=== PATIENT | male | born 1950 | race Caucasian/White ===

== ENCOUNTER 2017-12-15 13:55 | Inpatient (IN) | payer BC, MEDICARE ==
[2017-12-15] MEDS ORDERED: SODIUM CHLORIDE 0.9% 500 ML 500 ML IV STA (14:24)
--- NOTE | 2017-12-15 14:27 | ED ---
General Adult HPI - General Chief complaint: Abdominal Pain Stated complaint: Bowel Obstruction Time Seen by Provider: 12/15/17 14:00 Source: patient, RN notes reviewed Mode of arrival: ambulatory Limitations: no limitations - History of Present Illness Initial comments: This is a 67-year-old male presents emergency department with past medical history significant for prostate cancer high blood pressure and colon cancer. Patient states she's had a colectomy in the past. Patient went to his doctor today because he was not able to have a bowel movement for the last 2 days and not passing any gas the last 2 days. Patient states he has some lower abdominal cramping more so on the right than the left. Patient went to see his primary medical care doctor today and the doctor sent him in for an x-ray which was suggestive of small bowel obstruction so the patient was sent to the emergency department. Patient denies any vomiting but has been nauseous. Patient denies any chest pain difficulty breathing shortness of breath. Patient denies any recent fever chills or cough per patient denies any dysuria hematuria urinary frequency. Patient denies any urinary retention. - Related Data Home Medications Medication Instructions Recorded Confirmed Bisoprolol [Zebeta] 5 mg PO DAILY 12/15/17 12/15/17 Cholecalciferol [Vitamin D3] 1,000 unit PO DAILY 12/15/17 12/15/17 Ciprofloxacin HCl [Cipro] 250 mg PO Q12HR 12/15/17 12/15/17 Finasteride [Proscar] 5 mg PO DAILY 12/15/17 12/15/17 Krill Oil 500 mg PO DAILY 12/15/17 12/15/17 Multivitamins, Thera [Multivitamin 1 tab PO DAILY 12/15/17 12/15/17 (formulary)] Ubidecarenone [Co Q-10] 100 mg PO DAILY 12/15/17 12/15/17 metroNIDAZOLE [Flagyl] 500 mg PO Q8H 12/15/17 12/15/17 Allergies Allergy/AdvReac Type Severity Reaction Status Date / Time No Known Allergies Allergy Verified 12/15/17 15:19 Review of Systems ROS Statement: Those systems with pertinent positive or pertinent negative responses have been documented in the HPI. ROS Other: All systems not noted in ROS Statement are negative. Past Medical History Past Medical History: Cancer, Hypertension, Prostate Disorder Additional Past Medical History / Comment(s): colon cancer History of Any Multi-Drug Resistant Organisms: None Reported Past Surgical History: Bowel Resection, Hernia Repair Past Psychological History: No Psychological Hx Reported Smoking Status: Never smoker Past Alcohol Use History: Occasional Past Drug Use History: None Reported General Exam - General Exam Comments Initial Comments: GENERAL: Patient is well-developed and well-nourished. Patient is nontoxic and well- hydrated and is in mild distress. ENT: Neck is soft and supple. No significant lymphadenopathy is noted. Oropharynx is clear. Moist mucous membranes. Neck has full range of motion without eliciting any pain. EYES: The sclera were anicteric and conjunctiva were pink and moist. Extraocular movements were intact and pupils were equal round and reactive to light. Eyelids were unremarkable. PULMONARY: Unlabored respirations. Good breath sounds bilaterally. No audible rales rhonchi or wheezing was noted. CARDIOVASCULAR: There is a regular rate and rhythm without any murmurs gallops or rubs. ABDOMEN: Soft with some mild tenderness in the right lower quadrant with diminished bowel sounds. No palpable organomegaly was noted. There is no palpable pulsatile mass. SKIN: Skin is clear with no lesions or rashes and otherwise unremarkable. NEUROLOGIC: Patient is alert and oriented x3. Cranial nerves II through XII are grossly intact. Motor and sensory are also intact. Normal speech, volume and content. Symmetrical smile. MUSCULOSKELETAL: Normal extremities with adequate strength and full range of motion. LYMPHATICS: No significant lymphadenopathy is noted PSYCHIATRIC: Normal psychiatric evaluation. Limitations: no limitations Course Vital Signs 12/15/17 14:06 Temperature 98.4 F Pulse Rate 87 Respiratory 18 Rate Blood Pressure 169/86 O2 Sat by Pulse 97 Oximetry Medical Decision Making - Medical Decision Making Computed tomography scan shows small bowel obstruction. I spoke with Dr. Mendez she agreed to admit the patient admitted the patient family requested Dr. robles - Lab Data Result diagrams: 12/15/17 14:45 12/15/17 14:45 Lab Results 12/15/17 12/15/17 Range/Units 14:45 14:45 WBC 13.7 H (3.8-10.6) k/uL RBC 5.44 (4.30-5.90) m/uL Hgb 16.3 (13.0-17.5) gm/dL Hct 50.0 (39.0-53.0) % MCV 92.0 (80.0-100.0) fL MCH 30.0 (25.0-35.0) pg MCHC 32.7 (31.0-37.0) g/dL RDW 13.2 (11.5-15.5) % Plt Count 234 (150-450) k/uL Neutrophils % 86 % Lymphocytes % 5 % Monocytes % 7 % Eosinophils % 1 % Basophils % 0 % Neutrophils # 11.8 H (1.3-7.7) k/uL Lymphocytes # 0.7 L (1.0-4.8) k/uL Monocytes # 0.9 (0-1.0) k/uL Eosinophils # 0.2 (0-0.7) k/uL Basophils # 0.0 (0-0.2) k/uL Sodium 137 (137-145) mmol/L Potassium 4.3 (3.5-5.1) mmol/L Chloride 104 (98-107) mmol/L Carbon Dioxide 23 (22-30) mmol/L Anion Gap 10 mmol/L BUN 24 H (9-20) mg/dL Creatinine 0.92 (0.66-1.25) mg/dL Est GFR (CKD-EPI)AfAm >90 (>60 ml/min/1.73 sqM) Est GFR (CKD-EPI)NonAf 85 (>60 ml/min/1.73 sqM) Glucose 113 H (74-99) mg/dL Calcium 9.7 (8.4-10.2) mg/dL Total Bilirubin 1.1 (0.2-1.3) mg/dL AST 32 (17-59) U/L ALT 27 (21-72) U/L Alkaline Phosphatase 64 (38-126) U/L Total Protein 7.0 (6.3-8.2) g/dL Albumin 3.9 (3.5-5.0) g/dL Amylase 82 (30-110) U/L Lipase 68 (23-300) U/L Disposition Clinical Impression: Small bowel obstruction Disposition: ADMITTED IP TO THIS [facility] Referrals: Abdias Villegas MD [Primary Care Provider] - 1-2 days Time of Disposition: 16:58
[2017-12-15] MEDS ORDERED: ONDANSETRON 4 MG/2 ML VIAL IVP STA (14:51)
[2017-12-15 15:07] LABS: Basophils % (A) 0 %; Eosinophils # (A) 0.2 k/uL (0-0.7); Eosinophils % (A) 1 %; HGB 16.3 gm/dL (13.0-17.5); Lymphocytes # (A) 0.7 k/uL (1.0-4.8); Lymphocytes % (A) 5 %; MCHC 32.7 g/dL (31.0-37.0); Mean Platelet Volume 7.1; Monocytes # (A) 0.9 k/uL (0-1.0); Monocytes % (A) 7 %; Neutrophils # (A) 11.8 k/uL (1.3-7.7); Neutrophils % (A) 86 %; Platelet Count 234 k/uL (150-450); RBC 5.44 m/uL (4.30-5.90); RDW 13.2 % (11.5-15.5); WBC 13.7 k/uL (3.8-10.6)
[2017-12-15 15:17] LABS: ALT 27 U/L (21-72); AST 32 U/L (17-59); Albumin 3.9 g/dL (3.5-5.0); Alkaline Phosphatase 64 U/L (38-126); Amylase 82 U/L (30-110); Anion Gap 10 mmol/L; Blood Urea Nitrogen 24 mg/dL (9-20); Calcium 9.7 mg/dL (8.4-10.2); Carbon Dioxide 23 mmol/L (22-30); Chloride 104 mmol/L (98-107); Glucose 113 mg/dL (74-99); Lipase 68 U/L (23-300); Potassium 4.3 mmol/L (3.5-5.1); Sodium 137 mmol/L (137-145); Total Bilirubin 1.1 mg/dL (0.2-1.3)
--- NOTE | 2017-12-15 16:40 | CT ---
EXAMINATION TYPE: CT abdomen pelvis w con DATE OF EXAM: 12/15/2017 COMPARISON: NONE HISTORY: 67-year-old male Generalized pain with nausea TECHNIQUE: Contiguous axial scanning of the abdomen and pelvis following administration of 100 ml Iso greg 300 IV contrast. Delayed images through the kidneys and coronal/sagittal reconstructions perform ed. CT DLP: 1056.7 mGycm Automated exposure control for dose reduction was used. FINDINGS: Heart upper limits of normal in size without pericardial effusion. Some groundglass areas of generali zed atelectasis in the lower lobes. No pleural effusion. Liver mildly enlarged at 18.3 cm. There is diminished attenuation as compared to the splenoportal jonel ous phase suggesting fatty infiltration. No focal liver lesion. Portal venous system is patent. No bi liary ductal dilatation. Gallbladder mildly hydropic at 4.3 cm wide. No surrounding inflammation. Adrenal glands, kidneys, and spleen appear within normal limits. There is a circumaortic left renal vein. Nonspecific calcification, possible calcified granuloma ante rior spleen with a tiny anterior splenule. Multiple borderline to mildly dilated small bowel loops are present with air-fluid levels. Bowel loop s measure up to 3.2 cm. There is mild congestion of the mesentery in transition point identified just deep to the umbilicus, axial image 66 and coronal image 14. Small bowel distal to this is collapsed. Partial ascending colectomy with a right-sided ileocolonic anastomosis at the level of the hepatic fl exure. There is some diverticular change of the hepatic flexure and scattered small diverticula withi n the left side of the colon especially the sigmoid colon. Colon is largely collapsed. No free air. No mesenteric or retroperitoneal lymphadenopathy. Moderate atherosclerotic calcification s infrarenal abdominal aorta and iliac arteries. Bladder urine distended. Prostate gland is enlarged at 5.4 cm wide. Trace pelvic free fluid, axial im age 79. No pelvic lymphadenopathy. Bones: Mild degenerative changes at the hips. Additional degenerative changes lumbar spine especially at L3-L4 and DISH within the lower thoracic spine. Probable moderate spinal canal stenosis at L3-L4 secondary to disc osteophyte complex. IMPRESSION: 1. SMALL BOWEL OBSTRUCTION. TRANSITION POINT AT THE DISTAL THIRD SMALL BOWEL LOCATED JUST DEEP TO THE UMBILICUS (AXIAL IMAGE 66 AND CORONAL IMAGE 14). SMALL BOWEL LOOPS ARE DILATED UP TO 3.2 CM AND DIST AL BOWEL IS COLLAPSED. 2. PREVIOUS PARTIAL RIGHT HEMICOLECTOMY WITH ILEOCOLONIC ANASTOMOSIS AT THE HEPATIC FLEXURE. 3. MILD HEPATOMEGALY (18.3 CM) WITH HEPATIC STEATOSIS. 4. MILDLY HYDROPIC GALLBLADDER LIKELY DUE TO FASTING STATE. MILD PROSTATOMEGALY (5.4 CM).
[2017-12-15] MEDS ORDERED: SODIUM CHLORIDE 0.9% 1,000 ML IV ONE (16:58)
[2017-12-15] MEDS ORDERED: ONDANSETRON 4 MG/2 ML VIAL IVP PRN (17:04)
[2017-12-15] MEDS ORDERED: HYDROmorphone 1 MG/ML 1 ML SYRINGE IVP STA (17:05)
[2017-12-15 17:13] LABS: INR 1.1 (<1.2); Partial Thromboplastin Time 26.1 sec (22.0-30.0); Prothrombin Time 10.4 sec (9.0-12.0)
--- NOTE | 2017-12-15 17:55 | XR ---
EXAMINATION: XR chest 2V DATE AND TIME: 12/15/2017 5:08 PM CLINICAL INDICATION: Difficulty breathing TECHNIQUE: PA and lateral COMPARISON: None. FINDINGS: The lungs are clear. The pleural spaces are negative. The cardiac silhouette is not enlarged. The remainder of the mediastinal silhouette is unremarkable. The skeletal structures and soft tissues are negative for acute findings. IMPRESSION: NO ACUTE PROCESS.
[2017-12-16 05:11] VITALS: BMI 33.0
[2017-12-16 09:05] LABS: Appearance,Urine Clear (Clear); Bilirubin,Urine Negative (Negative); Blood,Urine Moderate (Negative); Color,Urine Yellow; Glucose,Urine (UA) Negative (Negative); Ketones,Urine 1+ (Negative); Leukocyte Esterase,Urine Negative (Negative); Mucus,Urine Moderate /hpf; Nitrite,Urine Negative (Negative); PH, Urine 5.5 (5.0-8.0); Protein,Urine Trace (Negative); RBC,Urine 3 /hpf (0-5); Specific Gravity,Urine 1.032 (1.001-1.035); Urobilinogen,Urine <2.0 mg/dL (<2.0); WBC,Urine 1 /hpf (0-5)
--- NOTE | 2017-12-16 12:28 | XR ---
EXAMINATION TYPE: XR abdomen complete w decub DATE OF EXAM: 12/16/2017 COMPARISON: 12/15/2017 HISTORY: Abdominal distention TECHNIQUE: Supine, upright, and left side down lateral decubitus views of the abdomen are obtained. FINDINGS: There is persistent dilated small bowel loops with air-fluid levels. Calcification left upp er quadrant may be related to splenic granuloma. Previous surgery suggested in the right abdomen. Hyp ertrophic and degenerative change of the spine. Vascular calcifications in the pelvis. Arthropathy of the hips. IMPRESSION: Persistent dilated bowel loops with air-fluid levels correlate for small bowel obstruction.
--- NOTE | 2017-12-16 13:08 | P.GSCN ---
History of Present Illness Consult date: 12/16/17 Reason for Consult: Abdominal pain History of present illness: Patient admitted with mid abdominal pain. Pain associated with episodes of nausea and vomiting. Decreased bowel function at home. Since admission he has had multiple loose stools. He states his pain is improved. Appetite is diminished. CAT scan showed findings consistent with partial small bowel obstruction. White blood cell count elevated at 13. He is afebrile. Patient has a history of previous open right colectomy with umbilical hernia repair simultaneously. Review of Systems The patient denies any acute changes in vision or hearing, no dysphagia or odynophagia, no chest pain or shortness of breath, no dysuria or hematuria, no headache, no runny nose, no rectal bleeding or melena, no unexplained weight loss Past Medical History Past Medical History: Cancer, Hypertension, Prostate Disorder Additional Past Medical History / Comment(s): colon cancer History of Any Multi-Drug Resistant Organisms: None Reported Past Surgical History: Bowel Resection, Hernia Repair Additional Past Surgical History / Comment(s): R hemicolectomy Past Psychological History: No Psychological Hx Reported Smoking Status: Never smoker Past Alcohol Use History: Occasional Past Drug Use History: None Reported - Past Family History Father Family Medical History: Hypertension Medications and Allergies Home Medications Medication Instructions Recorded Confirmed Type Bisoprolol [Zebeta] 5 mg PO DAILY 12/15/17 12/15/17 History Cholecalciferol [Vitamin D3] 1,000 unit PO DAILY 12/15/17 12/15/17 History Ciprofloxacin HCl [Cipro] 250 mg PO Q12HR 12/15/17 12/15/17 History Finasteride [Proscar] 5 mg PO DAILY 12/15/17 12/15/17 History Krill Oil 500 mg PO DAILY 12/15/17 12/15/17 History Multivitamins, Thera [Multivitamin 1 tab PO DAILY 12/15/17 12/15/17 History (formulary)] Ubidecarenone [Co Q-10] 100 mg PO DAILY 12/15/17 12/15/17 History metroNIDAZOLE [Flagyl] 500 mg PO Q8H 12/15/17 12/15/17 History Allergies Allergy/AdvReac Type Severity Reaction Status Date / Time No Known Allergies Allergy Verified 12/15/17 15:19 Surgical - Exam Vital Signs Temp Pulse Resp BP Pulse Ox 98.4 F 87 18 169/86 97 10/23/18 14:06 12/15/17 14:06 12/15/17 14:06 12/15/17 14:06 12/15/17 14:06 Physical exam: General: Well-developed, well-nourished HEENT: Normocephalic, sclerae nonicteric Abdomen: Mild mid abdominal tenderness, nondistended Extremities: No edema Neuro: Alert and oriented Results - Labs 12/15/17 14:45 12/15/17 14:45 Abnormal Lab Results - Last 24 Hours (Table) 12/15/17 12/15/17 12/16/17 Range/Units 14:45 14:45 08:30 WBC 13.7 H (3.8-10.6) k/uL Neutrophils # 11.8 H (1.3-7.7) k/uL Lymphocytes # 0.7 L (1.0-4.8) k/uL BUN 24 H (9-20) mg/dL Glucose 113 H (74-99) mg/dL Urine Protein Trace H (Negative) Urine Ketones 1+ H (Negative) Urine Blood Moderate H (Negative) Urine Mucus Moderate H (None) /hpf Diabetes panel 12/15/17 Range/Units 14:45 Sodium 137 (137-145) mmol/L Potassium 4.3 (3.5-5.1) mmol/L Chloride 104 (98-107) mmol/L Carbon Dioxide 23 (22-30) mmol/L BUN 24 H (9-20) mg/dL Creatinine 0.92 (0.66-1.25) mg/dL Glucose 113 H (74-99) mg/dL Calcium 9.7 (8.4-10.2) mg/dL AST 32 (17-59) U/L ALT 27 (21-72) U/L Alkaline Phosphatase 64 (38-126) U/L Total Protein 7.0 (6.3-8.2) g/dL Albumin 3.9 (3.5-5.0) g/dL Calcium panel 12/15/17 Range/Units 14:45 Calcium 9.7 (8.4-10.2) mg/dL Albumin 3.9 (3.5-5.0) g/dL Pituitary panel 12/15/17 Range/Units 14:45 Sodium 137 (137-145) mmol/L Potassium 4.3 (3.5-5.1) mmol/L Chloride 104 (98-107) mmol/L Carbon Dioxide 23 (22-30) mmol/L BUN 24 H (9-20) mg/dL Creatinine 0.92 (0.66-1.25) mg/dL Glucose 113 H (74-99) mg/dL Calcium 9.7 (8.4-10.2) mg/dL Adrenal panel 12/15/17 Range/Units 14:45 Sodium 137 (137-145) mmol/L Potassium 4.3 (3.5-5.1) mmol/L Chloride 104 (98-107) mmol/L Carbon Dioxide 23 (22-30) mmol/L BUN 24 H (9-20) mg/dL Creatinine 0.92 (0.66-1.25) mg/dL Glucose 113 H (74-99) mg/dL Calcium 9.7 (8.4-10.2) mg/dL Total Bilirubin 1.1 (0.2-1.3) mg/dL AST 32 (17-59) U/L ALT 27 (21-72) U/L Alkaline Phosphatase 64 (38-126) U/L Total Protein 7.0 (6.3-8.2) g/dL Albumin 3.9 (3.5-5.0) g/dL Assessment and Plan (1) Small bowel obstruction Narrative/Plan: Patient with admission for small bowel obstruction. Likely related to adhesions. No vomiting or nausea currently. We will hold off on nasogastric tube placement. Repeat abdominal x-rays and labs tomorrow. Will manage conservatively for now. Current Visit: Yes Status: Acute Code(s): K56.609 - UNSP INTESTNL OBST, UNSP TO PARTIAL VERSUS COMPLETE OBST SNOMED Code(s): 722219159
[2017-12-16 13:43] LABS: Basophils % (A) 0 %; Eosinophils # (A) 0.2 k/uL (0-0.7); Eosinophils % (A) 3 %; HCT 45.6 % (39.0-53.0); HGB 14.6 gm/dL (13.0-17.5); Lymphocytes # (A) 0.9 k/uL (1.0-4.8); Lymphocytes % (A) 10 %; MCH 30.1 pg (25.0-35.0); MCV 94.3 fL (80.0-100.0); Mean Platelet Volume 6.7; Monocytes # (A) 0.8 k/uL (0-1.0); Monocytes % (A) 9 %; Neutrophils % (A) 77 %; Platelet Count 191 k/uL (150-450); RBC 4.84 m/uL (4.30-5.90); RDW 13.2 % (11.5-15.5)
--- NOTE | 2017-12-16 14:11 | P.HPIM ---
History of Present Illness H&P Date: 12/16/17 Chief Complaint: Abdominal pain and obstipation This 67-year-old pleasant gentleman patient of Dr. Villegas. He has underlying history of colon cancer with right hemicolectomy [address] El, not requiring any chemotherapy. Also history of hypertension, BPH, was seen in the emergency room after she complained of abdominal pain since Thursday 4 days prior to admission. This started as indigestion-like feeling, epigastric region, radiating to the right lower quadrant area, this did not get any better with Pepto-Bismol, she has some nausea, and vomiting, and was seen in the office and was given Cipro and Flagyl. Patient took 1 dose of each antibiotic, and was seen last Thursday patient did not have any good response to this, and was subsequently seen in the emergency room In the emergency room CAT scan of the abdomen and pelvis shows mild liver enlargement 18 cm, fatty liver, gallbladder slightly hydropic 4.3 cm, no surrounding inflammation, there is multiple borderline mildly dilated small bowel loops with air-fluid levels, transition point noted deep to the umbilicus , small distal small bowel AV to bases collapsed. She was subsequently admitted for small bowel obstruction, consult to Gen. surgery. NG tube was not placed in the emergency room, after the patient was admitted patient had multiple loose stools thereafter, and can pass some clots this, nausea and vomiting has improved, has residual abdominal pain. Patient was seen by Dr. Coelho general surgery with no plans of surgical intervention at this time and is medically managed. Patient currently is nothing by mouth patient was started on IV antibiotics for clinical diverticulitis IV Levaquin and I be Flagyl, leukocytosis is noted on admission Review of Systems Constitutional: Reports as per HPI, Reports anorexia, Denies chills, Denies chronic headaches, Denies chronic pain, Denies daytime sleepiness, Denies fatigue, Denies fever, Denies lethargy, Denies malaise, Denies night sweats, Denies poor appetite, Denies sweats, Denies weakness, Denies weight gain, Denies weight loss Ears, nose, mouth and throat: Reports as per HPI, Denies ant. neck pain, Denies bleeding gums, Denies dental pain, Denies dysphagia, Denies epistaxis, Denies headache, Denies hoarseness, Denies mouth pain, Denies nasal congestion, Denies nasal discharge, Denies neck fullness/pressure, Denies neck lump, Denies nose pain, Denies odynophagia, Denies post-nasal drip, Denies sinus pain, Denies sinus pressure, Denies swelling in mouth, Denies swelling in throat, Denies sore throat, Denies vertigo, Denies voice changes Cardiovascular: Reports as per HPI, Denies chest pain, Denies claudication, Denies decreased exercise tolerance, Denies dyspnea on exertion, Denies edema, Denies high blood pressure, Denies irregular heart beat, Denies leg edema, Denies lightheadedness, Denies orthopnea, Denies palpitations, Denies paroxysmal nocturnal dyspnea, Denies phlebitis, Denies rapid heart beat, Denies shortness of breath, Denies syncope Respiratory: Reports as per HPI, Denies congestion, Denies cough, Denies cough with sputum, Denies dyspnea, Denies excessive sputum, Denies hemoptysis, Denies home oxygen, Denies pain, Denies pain on inspiration, Denies pleurisy, Denies respiratory infections, Denies sleep apnea, Denies snoring, Denies wheezing Gastrointestinal: Reports as per HPI, Reports abdominal pain, Reports belching, Reports bloating, Reports change in bowel habits, Reports indigestion, Reports nausea, Reports vomiting, Denies BRBPR, Denies coffee ground emesis, Denies constipation, Denies diarrhea, Denies dyspepsia, Denies early satiety, Denies excessive gas, Denies heartburn, Denies hematemesis, Denies hematochezia, Denies jaundice, Denies lactose intolerance, Denies loss of appetite, Denies melena Genitourinary: Reports as per HPI, Denies decreased libido, Denies difficulties fathering child, Denies discharge, Denies dysuria, Denies erectile dysfunction, Denies flank pain, Denies genital pain, Denies genital sores, Denies hematuria, Denies impotence, Denies incontinence, Denies kidney stones, Denies nocturia, Denies polyuria, Denies testicular lump, Denies testicular pain, Denies urinary frequency, Denies urinary hesitancy, Denies urinary retention Musculoskeletal: Reports as per HPI, Denies arm numbness/tingling, Denies atrophy, Denies fractures, Denies frequent falls, Denies gait dysfunction, Denies hot joints, Denies leg numbness/tingling, Denies limitation of motion, Denies loss of height, Denies low back pain, Denies morning stiffness, Denies muscle cramps, Denies muscle weakness, Denies myalgias, Denies neck pain, Denies neck stiffness, Denies prior amputations, Denies redness of joints, Denies shooting arm pain, Denies shooting leg pain Integumentary: Reports as per HPI, Denies acne, Denies boils, Denies brittle nails, Denies change in hair/nails, Denies color changes, Denies darkening of skin, Denies depigmentation, Denies dryness, Denies foot/leg ulcers, Denies growths, Denies hirsutism, Denies lesions, Denies onychomycosis, Denies pruritus , Denies rash, Denies sores, Denies striae, Denies unusual bruising, Denies wounds Neurological: Reports as per HPI, Denies aphasia, Denies ataxia, Denies balance difficulties, Denies burning pain, Denies change in mentation, Denies change in smell/taste, Denies change in speech, Denies confusion, Denies convulsions, Denies double vision, Denies gait dysfunction, Denies head injury, Denies headaches, Denies hearing difficulties, Denies lack of coordination, Denies loss of vision, Denies memory loss, Denies migraines, Denies motor disturbance, Denies numbness, Denies paralysis, Denies paresthesias, Denies seizures, Denies sensory deficit, Denies spasticity, Denies syncope, Denies tic, Denies tingling , Denies transient paralysis, Denies tremors, Denies vertigo, Denies weakness, Denies visual changes Psychiatric: Reports as per HPI Endocrine: Reports as per HPI, Denies cold intolerance, Denies deepening of the voice, Denies excessive sweating, Denies excessive thirst, Denies fatigue, Denies flushing, Denies heat intolerance, Denies high blood sugars, Denies increase in ring/shoe/hat size, Denies low blood sugars, Denies nocturia, Denies palpitations, Denies polydipsia, Denies polyphagia, Denies polyuria, Denies proptosis, Denies recent glucocorticoid use, Denies thyroid mass, Denies weight change Hematologic/Lymphatic: Reports as per HPI, Denies easy bleeding, Denies easy bruising, Denies lymphadenopathy, Denies lymphedema, Denies thrombophilia Allergic/Immunologic: Reports as per HPI, Denies allergic rhinitis, Denies anaphylaxis, Denies angioedema, Denies gluten intolerance, Denies persistent infections, Denies seasonal allergies, Denies urticaria, Denies wheezing Past Medical History Past Medical History: Cancer, Hypertension, Prostate Disorder Additional Past Medical History / Comment(s): colon cancer History of Any Multi-Drug Resistant Organisms: None Reported Past Surgical History: Bowel Resection, Hernia Repair Additional Past Surgical History / Comment(s): R hemicolectomy Past Psychological History: No Psychological Hx Reported Smoking Status: Never smoker Past Alcohol Use History: Occasional Past Drug Use History: None Reported - Past Family History Father Family Medical History: Congestive Heart Failure (CHF), Hypertension Brother(s) Family Medical History: Cancer (Hodgkin's lymphoma), Renal Disease (One brother born with 20 kidney) Sister(s) Family Medical History: Cancer (Head and neck cancer) Daughter(s) Family Medical History: Unable to Obtain Son(s) Family Medical History: No Reported History Medications and Allergies Home Medications Medication Instructions Recorded Confirmed Type Bisoprolol [Zebeta] 5 mg PO DAILY 12/15/17 12/15/17 History Cholecalciferol [Vitamin D3] 1,000 unit PO DAILY 12/15/17 12/15/17 History Ciprofloxacin HCl [Cipro] 250 mg PO Q12HR 12/15/17 12/15/17 History Finasteride [Proscar] 5 mg PO DAILY 12/15/17 12/15/17 History Krill Oil 500 mg PO DAILY 12/15/17 12/15/17 History Multivitamins, Thera [Multivitamin 1 tab PO DAILY 12/15/17 12/15/17 History (formulary)] Ubidecarenone [Co Q-10] 100 mg PO DAILY 12/15/17 12/15/17 History metroNIDAZOLE [Flagyl] 500 mg PO Q8H 12/15/17 12/15/17 History Allergies Allergy/AdvReac Type Severity Reaction Status Date / Time No Known Allergies Allergy Verified 12/15/17 15:19 Physical Exam Vitals: Vital Signs Temp Pulse Pulse Resp BP BP Pulse Ox 12/16/17 12:18 98.6 F 81 15 139/77 92 L 12/16/17 08:02 15 12/16/17 05:55 99 F 80 16 116/63 93 L 12/15/17 23:00 16 12/15/17 21:42 98.4 F 85 16 137/73 95 12/15/17 15:09 75 16 125/85 98 12/15/17 14:06 98.4 F 87 18 169/86 97 Intake and Output 12/15/17 12/16/17 12/16/17 22:59 06:59 14:59 Intake Total 300 600 Balance 300 600 Intake: Intake, IV Titration 300 600 Amount Sodium Chloride 0.9% 1, 300 600 000 ml @ 75 mls/hr IV . [id number] ONE Rx#:[id number] Other: # Voids 2 2 # Bowel Movements 2 4 Weight 92.986 kg 92.986 kg - Constitutional General appearance: cooperative, no acute distress, obese - EENT Eyes: anicteric sclerae, EOMI, PERRLA, dentition normal, normal appearance ENT: NA/AT, normal oropharynx - Neck Neck: normal ROM - Respiratory Respiratory: bilateral: CTA, negative: diminished, dullness, rales, rhonchi, prolonged expiration, prolonged inspiration - Cardiovascular Rhythm: regular Heart sounds: normal: S1, S2 Abnormal Heart Sounds: no systolic murmur, no diastolic murmur, no rub, no S3 Gallop, no S4 Gallop, no click, no other - Gastrointestinal General gastrointestinal: normal bowel sounds, soft, tenderness Localized gastrointestinal: tender: RLQ, LLQ - Integumentary Integumentary: decreased turgor, normal - Neurologic Neurologic: CNII-XII intact - Musculoskeletal Musculoskeletal: gait normal, strength equal bilaterally - Psychiatric Psychiatric: A&O x's 3, appropriate affect, intact judgment & insight Results CBC & Chem 7: 12/16/17 13:18 12/15/17 14:45 Labs: Abnormal Lab Results - Last 24 Hours (Table) 12/15/17 12/15/17 12/16/17 Range/Units 14:45 14:45 08:30 WBC 13.7 H (3.8-10.6) k/uL Neutrophils # 11.8 H (1.3-7.7) k/uL Lymphocytes # 0.7 L (1.0-4.8) k/uL BUN 24 H (9-20) mg/dL Glucose 113 H (74-99) mg/dL Urine Protein Trace H (Negative) Urine Ketones 1+ H (Negative) Urine Blood Moderate H (Negative) Urine Mucus Moderate H (None) /hpf Laboratory Results WBC 9.0 k/uL (3.8-10.6) 12/16/17 13:18 RBC 4.84 m/uL (4.30-5.90) 12/16/17 13:18 Hgb 14.6 gm/dL (13.0-17.5) 12/16/17 13:18 Hct 45.6 % (39.0-53.0) 12/16/17 13:18 MCV 94.3 fL (80.0-100.0) 12/16/17 13:18 MCH 30.1 pg (25.0-35.0) 12/16/17 13:18 MCHC 32.0 g/dL (31.0-37.0) 12/16/17 13:18 RDW 13.2 % (11.5-15.5) 12/16/17 13:18 Plt Count 191 k/uL (150-450) 12/16/17 13:18 Neutrophils % 77 % 12/16/17 13:18 Lymphocytes % 10 % 12/16/17 13:18 Monocytes % 9 % 12/16/17 13:18 Eosinophils % 3 % 12/16/17 13:18 Basophils % 0 % 12/16/17 13:18 Neutrophils # 7.0 k/uL (1.3-7.7) 12/16/17 13:18 Lymphocytes # 0.9 k/uL (1.0-4.8) L 12/16/17 13:18 Monocytes # 0.8 k/uL (0-1.0) 12/16/17 13:18 Eosinophils # 0.2 k/uL (0-0.7) 12/16/17 13:18 Basophils # 0.0 k/uL (0-0.2) 12/16/17 13:18 PT 10.4 sec (9.0-12.0) 12/15/17 14:45 INR 1.1 (<1.2) 12/15/17 14:45 APTT 26.1 sec (22.0-30.0) 12/15/17 14:45 Sodium 137 mmol/L (137-145) 12/15/17 14:45 Potassium 4.3 mmol/L (3.5-5.1) 12/15/17 14:45 Chloride 104 mmol/L (98-107) 12/15/17 14:45 Carbon Dioxide 23 mmol/L (22-30) 12/15/17 14:45 Anion Gap 10 mmol/L 12/15/17 14:45 BUN 24 mg/dL (9-20) H 12/15/17 14:45 Creatinine 0.92 mg/dL (0.66-1.25) 12/15/17 14:45 Est GFR (CKD-EPI)AfAm >90 (>60 ml/min/1.73 sqM) 12/15/17 14:45 Est GFR (CKD-EPI)NonAf 85 (>60 ml/min/1.73 sqM) 12/15/17 14:45 Glucose 113 mg/dL (74-99) H 12/15/17 14:45 Calcium 9.7 mg/dL (8.4-10.2) 12/15/17 14:45 Total Bilirubin 1.1 mg/dL (0.2-1.3) 12/15/17 14:45 AST 32 U/L (17-59) 12/15/17 14:45 ALT 27 U/L (21-72) 12/15/17 14:45 Alkaline Phosphatase 64 U/L (38-126) 12/15/17 14:45 NT-Pro-B Natriuret Pep 129 pg/mL 12/15/17 14:45 Total Protein 7.0 g/dL (6.3-8.2) 12/15/17 14:45 Albumin 3.9 g/dL (3.5-5.0) 12/15/17 14:45 Amylase 82 U/L (30-110) 12/15/17 14:45 Lipase 68 U/L (23-300) 12/15/17 14:45 Urine Color Yellow 12/16/17 08:30 Urine Appearance Clear (Clear) 12/16/17 08:30 Urine pH 5.5 (5.0-8.0) 12/16/17 08:30 Ur Specific [place] 1.032 (1.001-1.035) 12/16/17 08:30 Urine Protein Trace (Negative) H 12/16/17 08:30 Urine Glucose (UA) Negative (Negative) 12/16/17 08:30 Urine Ketones 1+ (Negative) H 12/16/17 08:30 Urine Blood Moderate (Negative) H 12/16/17 08:30 Urine Nitrite Negative (Negative) 12/16/17 08:30 Urine Bilirubin Negative (Negative) 12/16/17 08:30 Urine Urobilinogen <2.0 mg/dL (<2.0) 12/16/17 08:30 Ur Leukocyte Esterase Negative (Negative) 12/16/17 08:30 Urine RBC 3 /hpf (0-5) 12/16/17 08:30 Urine WBC 1 /hpf (0-5) 12/16/17 08:30 Urine Mucus Moderate /hpf (None) H 12/16/17 08:30 Thrombosis Risk Factor Assmnt - DVT/VTE Prophylaxis DVT/VTE Prophylaxis: Pharmacologic Prophylaxis ordered - Choose All That Apply Any of the Below Risk Factors Present?: Yes Each Factor Represents 1 point: Obesity (BMI >25) Other Risk Factors: Yes Each Risk Factor Represents 2 Points: Age 61-74 years, Malignancy Other congenital or acquired thrombophilia - If yes, enter type in comment: No Thrombosis Risk Factor Assessment Total Risk Factor Score: 5 Thrombosis Risk Factor Assessment Level: High Risk Assessment and Plan Plan: 1. Acute small bowel obstruction was likely secondary to adhesions with known history of colon cancer, no recurrence based on imaging studies on CAT scan, he has transitioned point in the umbilical region, patient currently is made nothing by mouth with clinical management included bedrest IV fluid for hydration, PPIs. General surgery is closely following him, NG tube is currently on hold as the patient is clinically better, 2. Colon cancer diagnosed in 2004 with right hemicolectomy, no chemotherapy. 3. Hypertension patient is on Zebeta 5 mg by mouth daily, patient currently is normotensive, without any blood pressure medication. He shouldn't might need when necessary enalapril depending on clinical evaluation 4Leukocytosis possibly secondary to early diverticulitis accompanied by small bowel obstruction monitor, patient is on broad-spectrum IV Levaquin and Flagyl. Patient received oral and the backs prior to admission 4. CK D stage II to IV hydration, continue to monitor chemistries avoid hypotension 5. DVT prophylaxis heparin 6. GI prophylaxis Protonix
[2017-12-16] MEDS: PANTOPRAZOLE 40 MG/10 ML VIAL IVP SCH (15:32)
[2017-12-16] MEDS: metroNIDAZOLE-NS PMX 500 MG in SALINE 1 100ML.BAG IVPB SCH ×2 (15:32→23:15)
[2017-12-16] MEDS: HEPARIN SODIUM,PORCINE 5,000 UNIT/ML 1 ML VIAL SQ SCH ×2 (15:33→21:18)
[2017-12-16] MEDS: LEVOFLOXACIN 500MG-D5W PMX 500 MG in DEXTROSE/WATER 1 100ML.BAG IVPB SCH (16:32)
[2017-12-17 07:49] LABS: Anion Gap 8 mmol/L; Blood Urea Nitrogen 30 mg/dL (9-20); Calcium 8.4 mg/dL (8.4-10.2); Carbon Dioxide 23 mmol/L (22-30); Chloride 110 mmol/L (98-107); Glucose 80 mg/dL (74-99); Potassium 4.1 mmol/L (3.5-5.1); Sodium 141 mmol/L (137-145)
[2017-12-17 07:50] LABS: Basophils % (A) 0 %; Eosinophils # (A) 0.1 k/uL (0-0.7); Eosinophils % (A) 2 %; HCT 40.9 % (39.0-53.0); HGB 13.5 gm/dL (13.0-17.5); Lymphocytes # (A) 0.8 k/uL (1.0-4.8); Lymphocytes % (A) 12 %; MCH 30.7 pg (25.0-35.0); Mean Platelet Volume 6.9; Monocytes # (A) 0.6 k/uL (0-1.0); Monocytes % (A) 8 %; Neutrophils # (A) 5.4 k/uL (1.3-7.7); Neutrophils % (A) 76 %; Platelet Count 173 k/uL (150-450); RBC 4.39 m/uL (4.30-5.90)
[2017-12-17] MEDS: metroNIDAZOLE-NS PMX 500 MG in SALINE 1 100ML.BAG IVPB SCH ×2 (09:16→16:33)
[2017-12-17] MEDS: PANTOPRAZOLE 40 MG/10 ML VIAL IVP SCH (09:17)
[2017-12-17] MEDS: HEPARIN SODIUM,PORCINE 5,000 UNIT/ML 1 ML VIAL SQ SCH ×2 (09:17→16:33)
[2017-12-17] MEDS: LEVOFLOXACIN 500MG-D5W PMX 500 MG in DEXTROSE/WATER 1 100ML.BAG IVPB SCH (13:43)
--- NOTE | 2017-12-17 14:29 | P.PN ---
Subjective Progress Note Date: 12/17/17 Principal diagnosis: Small bowel obstruction Patient was able to pass gas last night. He is somewhat hungry. No nausea or vomiting. Still feels bloated however. Mild mid abdominal pain. Labs today look good. White blood cell count normal. Repeat abdominal x-rays still show some dilated small bowel loops. Objective - Vital Signs Vital signs: Vital Signs Temp 98.0 F 12/17/17 12:26 Pulse 80 12/17/17 12:26 Resp 18 12/17/17 12:26 BP 165/78 12/17/17 12:26 Pulse Ox 99 12/17/17 12:26 Intake & Output 12/16/17 12/17/17 12/17/17 18:59 06:59 18:59 Intake Total 900 Balance 900 Intake: Intake, IV Titration 900 Amount Sodium Chloride 0.9% 1, 900 000 ml @ 75 mls/hr IV . [id number] ONE Rx#:[id number] Other: Voiding Method Bedside Commode # Voids 3 3 # Bowel Movements 3 - Exam Abdomen: Soft, mild distention, mild diffuse tenderness - Labs CBC & Chem 7: 12/17/17 07:08 12/17/17 07:08 Labs: Abnormal Lab Results - Last 24 Hours (Table) 12/17/17 12/17/17 Range/Units 07:08 07:08 Lymphocytes # 0.8 L (1.0-4.8) k/uL Chloride 110 H (98-107) mmol/L BUN 30 H (9-20) mg/dL Assessment and Plan (1) Small bowel obstruction Narrative/Plan: Options discussed with the patient and his in detail. Will plan small bowel series for tomorrow morning. Decisions regarding exploratory laparotomy will be made based on those studies. Current Visit: Yes Status: Acute Code(s): K56.609 - UNSP INTESTNL OBST, UNSP TO PARTIAL VERSUS COMPLETE OBST SNOMED Code(s): 206579885
--- NOTE | 2017-12-17 14:38 | XR ---
EXAMINATION TYPE: XR abdomen complete w decub DATE OF EXAM: 12/17/2017 COMPARISON: Prior chest x-ray 12/16/2017 HISTORY: Small bowel obstruction TECHNIQUE: Supine, upright, and left side down lateral decubitus views of the abdomen are obtained. 4 images. FINDINGS: Exam is stable. There are air-fluid levels with distention. No evident pneumoperitoneum. Vascular arlin cifications are noted. Degenerative disc changes visualized spine. IMPRESSION: Findings suggest small bowel obstruction.
--- NOTE | 2017-12-17 15:21 | P.PN ---
Subjective Progress Note Date: 12/17/17 This 67-year-old pleasant gentleman patient of Dr. Villegas. He has underlying history of colon cancer with right hemicolectomy [address] El, not requiring any chemotherapy. Also history of hypertension, BPH, was seen in the emergency room after she complained of abdominal pain since Thursday 4 days prior to admission. This started as indigestion-like feeling, epigastric region, radiating to the right lower quadrant area, this did not get any better with Pepto-Bismol, she has some nausea, and vomiting, and was seen in the office and was given Cipro and Flagyl. Patient took 1 dose of each antibiotic, and was seen last Thursday patient did not have any good response to this, and was subsequently seen in the emergency room In the emergency room CAT scan of the abdomen and pelvis shows mild liver enlargement 18 cm, fatty liver, gallbladder slightly hydropic 4.3 cm, no surrounding inflammation, there is multiple borderline mildly dilated small bowel loops with air-fluid levels, transition point noted deep to the umbilicus , small distal small bowel AV to bases collapsed. She was subsequently admitted for small bowel obstruction, consult to Gen. surgery. NG tube was not placed in the emergency room, after the patient was admitted patient had multiple loose stools thereafter, and can pass some clots this, nausea and vomiting has improved, has residual abdominal pain. Patient was seen by Dr. Coelho general surgery with no plans of surgical intervention at this time and is medically managed. Patient currently is nothing by mouth patient was started on IV antibiotics for clinical diverticulitis IV Levaquin and I be Flagyl, leukocytosis is noted on admission 12/16: Vital signs have been stable, patient is afebrile. Abdominal x-ray shows findings that should stress small bowel obstruction. Patient was passing gas last night. No nausea or vomiting. He continues to have abdominal pain. Dr. Coelho is planning for small bowel series tomorrow for possible exploratory laparotomy. Review Of Systems: Constitutional: No fever, no chills, no night sweats. EENT: No headache. No blurred vision or double vision, no loss of vision. No nasal drainage or congestion. No epistaxis. No sore throat. Lungs: No shortness of breath, cough, no sputum production. No wheezing. Cardiovascular: No chest pain, no lower extremity edema. No palpitations. No lightheadedness or dizziness. No syncopal episodes. Abdominal: + abdominal pain. No nausea, vomiting. No diarrhea. + constipation. No bloody or tarry stools. No loss of appetite. Genitourinary: No dysuria, increased frequency, urgency. No urinary retention. Musculoskeletal: No myalgias. No muscle weakness, no gait dysfunction, no frequent falls. No back pain. No neck pain. Integumentary: No wounds, no lesions. No rash or pruritus. No unusual bruising. No change in hair or nails. Neurologic: No aphasia. No facial droop. No change in mentation. No head injury. No headache. No paralysis. No paresthesia. Psychiatric: No depression. No anxiety. No mood swings. Endocrine: No abnormal blood sugars. Objective - Vital Signs Vital signs: Vital Signs Temp 97.8 F 12/17/17 05:00 Pulse 82 12/17/17 08:22 Resp 18 12/17/17 05:00 BP 156/80 12/17/17 05:00 Pulse Ox 95 12/17/17 05:00 Intake & Output 12/16/17 12/17/17 12/17/17 18:59 06:59 18:59 Intake Total 900 Balance 900 Intake: Intake, IV Titration 900 Amount Sodium Chloride 0.9% 1, 900 000 ml @ 75 mls/hr IV . [id number] ONE Rx#:[id number] Other: Voiding Method Bedside Commode # Voids 3 # Bowel Movements 3 - Exam General appearance: cooperative, no acute distress, obese - EENT Eyes: anicteric sclerae, EOMI, PERRLA, dentition normal, normal appearance ENT: NA/AT, normal oropharynx - Neck Neck: normal ROM - Respiratory Respiratory: bilateral: CTA, negative: diminished, dullness, rales, rhonchi, prolonged expiration, prolonged inspiration - Cardiovascular Rhythm: regular Heart sounds: normal: S1, S2 Abnormal Heart Sounds: no systolic murmur, no diastolic murmur, no rub, no S3 Gallop, no S4 Gallop, no click, no other - Gastrointestinal General gastrointestinal: normal bowel sounds, soft, +tenderness Localized gastrointestinal: tender: RLQ, LLQ - Integumentary Integumentary: decreased turgor, normal - Neurologic Neurologic: CNII-XII intact - Musculoskeletal Musculoskeletal: gait normal, strength equal bilaterally - Psychiatric Psychiatric: A&O x's 3, appropriate affect, intact judgment & insight - Labs CBC & Chem 7: 12/17/17 07:08 12/17/17 07:08 Labs: Abnormal Lab Results - Last 24 Hours (Table) 12/16/17 12/17/17 12/17/17 Range/Units 13:18 07:08 07:08 Lymphocytes # 0.9 L 0.8 L (1.0-4.8) k/uL Chloride 110 H (98-107) mmol/L BUN 30 H (9-20) mg/dL Assessment and Plan Plan: 1. Acute small bowel obstruction was likely secondary to adhesions with known history of colon cancer, no recurrence based on imaging studies on CAT scan, he has transitioned point in the umbilical region, patient currently is made nothing by mouth with clinical management included IV fluid for hydration, PPIs. General surgery is closely following him, small bowel follow-through tomorrow, possible exploratory laparotomy. 2. Colon cancer diagnosed in 2004 with right hemicolectomy, no chemotherapy. 3. Hypertension patient is on Zebeta 5 mg by mouth daily, patient currently is normotensive, without any blood pressure medication. He shouldn't might need when necessary enalapril depending on clinical evaluation 4Leukocytosis possibly secondary to early diverticulitis accompanied by small bowel obstruction monitor, patient is on broad-spectrum IV Levaquin and Flagyl. Patient received oral and the backs prior to admission 4. CKD stage II to IV hydration, continue to monitor chemistries avoid hypotension 5. DVT prophylaxis heparin 6. GI prophylaxis Protonix Discharge plan: Return home Impression and plan of care have been directed as dictated by the signing physician. Kasia Angulo nurse practitioner acting as scribe for signing physician.
[2017-12-18] MEDS: HEPARIN SODIUM,PORCINE 5,000 UNIT/ML 1 ML VIAL SQ SCH ×3 (00:30→17:34)
[2017-12-18] MEDS: metroNIDAZOLE-NS PMX 500 MG in SALINE 1 100ML.BAG IVPB SCH ×3 (00:30→17:34)
[2017-12-18] MEDS: diphenhydrAMINE 50 MG/ML 1 ML VIAL IVP PRN (01:10)
[2017-12-18] MEDS: PANTOPRAZOLE 40 MG/10 ML VIAL IVP SCH (08:37)
[2017-12-18] MEDS ORDERED: ENALAPRILAT 1.25 MG/ML 1 ML VIAL IVP PRN (12:59)
--- NOTE | 2017-12-18 13:07 | FL ---
EXAMINATION TYPE: FL small bowel follow through DATE OF EXAM: 12/18/2017 COMPARISON: None HISTORY: Small bowel obstruction, distention TECHNIQUE: Small bowel follow-through is performed following the oral administration of contrast. Mul tiple overhead radiographs were obtained. Fluoroscopic spot imaging was performed. Real-time observat ion was performed. FINDINGS: There is prompt fill of the jejunum. The mid to distal jejunum is somewhat prominent with s ome ileal fold pattern. The ileum is nondistended and has a small amount of contrast initially passin g through to the area of anastomosis in the right upper quadrant. Real-time observation of this area appeared normal without any fixated loops of bowel, persistent area of stenosis, or zone of transitio n. Subsequent imaging with overhead radiographs demonstrate more normal contrast passing into the ile um with contrast passing through to the level of the rectum. Transit time to the colon is 1 hour and 10 minutes. Preliminary results were discussed with Dr. Coelho by Dr. Jose Mccallum telephone 1300 hours 1 . IMPRESSION: 1. No obvious persistent obstruction or zone of transition. 2. Thickening of the distal ileal folds. Prominence of the jejunum. Correlate for ileitis which may b e contributing to an ileus of the jejunum. Significant hesitancy to the colon however is not evident.
[2017-12-18] MEDS: LEVOFLOXACIN 500MG-D5W PMX 500 MG in DEXTROSE/WATER 1 100ML.BAG IVPB SCH (14:14)
--- NOTE | 2017-12-18 14:20 | P.PN ---
Subjective Progress Note Date: 12/18/17 This 67-year-old pleasant gentleman patient of Dr. Villegas. He has underlying history of colon cancer with right hemicolectomy [address] El, not requiring any chemotherapy. Also history of hypertension, BPH, was seen in the emergency room after she complained of abdominal pain since Thursday 4 days prior to admission. This started as indigestion-like feeling, epigastric region, radiating to the right lower quadrant area, this did not get any better with Pepto-Bismol, she has some nausea, and vomiting, and was seen in the office and was given Cipro and Flagyl. Patient took 1 dose of each antibiotic, and was seen last Thursday patient did not have any good response to this, and was subsequently seen in the emergency room In the emergency room CAT scan of the abdomen and pelvis shows mild liver enlargement 18 cm, fatty liver, gallbladder slightly hydropic 4.3 cm, no surrounding inflammation, there is multiple borderline mildly dilated small bowel loops with air-fluid levels, transition point noted deep to the umbilicus , small distal small bowel AV to bases collapsed. She was subsequently admitted for small bowel obstruction, consult to Gen. surgery. NG tube was not placed in the emergency room, after the patient was admitted patient had multiple loose stools thereafter, and can pass some clots this, nausea and vomiting has improved, has residual abdominal pain. Patient was seen by Dr. Coelho general surgery with no plans of surgical intervention at this time and is medically managed. Patient currently is nothing by mouth patient was started on IV antibiotics for clinical diverticulitis IV Levaquin and I be Flagyl, leukocytosis is noted on admission 12/16: Vital signs have been stable, patient is afebrile. Abdominal x-ray shows findings that should stress small bowel obstruction. Patient was passing gas last night. No nausea or vomiting. He continues to have abdominal pain. Dr. Coelho is planning for small bowel series tomorrow for possible exploratory laparotomy. 12/17: Patient states that he has been passing gas and he is passing the barium with a very tiny amount of stool. He has abdominal bloating. He underwent small bowel series and report is pending. Dr. Coelho has him tentatively scheduled for exploratory laparotomy. Blood pressure is running high for which IV enalapril added. Review Of Systems: Constitutional: No fever, no chills, no night sweats. EENT: No headache. No blurred vision or double vision, no loss of vision. No nasal drainage or congestion. No epistaxis. No sore throat. Lungs: No shortness of breath, cough, no sputum production. No wheezing. Cardiovascular: No chest pain, no lower extremity edema. No palpitations. No lightheadedness or dizziness. No syncopal episodes. Abdominal: + abdominal pain. No nausea, vomiting. No diarrhea. + constipation. No bloody or tarry stools. +loss of appetite. Genitourinary: No dysuria, increased frequency, urgency. No urinary retention. Musculoskeletal: No myalgias. No muscle weakness, no gait dysfunction, no frequent falls. No back pain. No neck pain. Integumentary: No wounds, no lesions. No rash or pruritus. No unusual bruising. No change in hair or nails. Neurologic: No aphasia. No facial droop. No change in mentation. No head injury. No headache. No paralysis. No paresthesia. Psychiatric: No depression. No anxiety. No mood swings. Endocrine: No abnormal blood sugars. Objective - Vital Signs Vital signs: Vital Signs Temp 98.1 F 12/18/17 12:14 Pulse 66 12/18/17 12:14 Resp 14 12/18/17 12:14 BP 183/89 12/18/17 12:14 Pulse Ox 99 12/18/17 12:14 Intake & Output 12/17/17 12/18/17 12/18/17 18:59 06:59 18:59 Intake Total 220 Balance 220 Intake: Intake, IV Titration 100 Amount metroNIDAZOLE-NS PMX 500 100 mg In Saline 1 100ml.bag @ 100 mls/hr IVPB Q8HR [facility] Rx#:[id number] Oral 120 Other: Voiding Method Bedside Commode Toilet Toilet # Voids 3 2 - Exam General appearance: cooperative, no acute distress, obese - EENT Eyes: anicteric sclerae, EOMI, PERRLA, dentition normal, normal appearance ENT: NA/AT, normal oropharynx - Neck Neck: normal ROM - Respiratory Respiratory: bilateral: CTA, negative: diminished, dullness, rales, rhonchi, prolonged expiration, prolonged inspiration - Cardiovascular Rhythm: regular Heart sounds: normal: S1, S2 Abnormal Heart Sounds: no systolic murmur, no diastolic murmur, no rub, no S3 Gallop, no S4 Gallop, no click, no other - Gastrointestinal General gastrointestinal: normal bowel sounds, soft, +bloating, +tenderness Localized gastrointestinal: tender: RLQ, LLQ - Integumentary Integumentary: decreased turgor, normal - Neurologic Neurologic: CNII-XII intact - Musculoskeletal Musculoskeletal: gait normal, strength equal bilaterally - Psychiatric Psychiatric: A&O x's 3, appropriate affect, intact judgment & insight - Labs CBC & Chem 7: 12/17/17 07:08 12/17/17 07:08 Assessment and Plan Plan: 1. Acute small bowel obstruction was likely secondary to adhesions with known history of colon cancer, no recurrence based on imaging studies on CAT scan, he has transitioned point in the umbilical region, patient currently is made nothing by mouth with clinical management included IV fluid for hydration, PPIs. General surgery is closely following him, small bowel follow-through report is pending, possible exploratory laparotomy. 2. Colon cancer diagnosed in 2004 with right hemicolectomy, no chemotherapy. 3. Hypertension patient is on Zebeta 5 mg by mouth daily, patient currently is normotensive, without any blood pressure medication. He shouldn't might need when necessary enalapril depending on clinical evaluation 4Leukocytosis possibly secondary to early diverticulitis accompanied by small bowel obstruction monitor, patient is on broad-spectrum IV Levaquin and Flagyl. Patient received oral and the backs prior to admission 4. CKD stage II to IV hydration, continue to monitor chemistries avoid hypotension 5. DVT prophylaxis heparin 6. GI prophylaxis Protonix Discharge plan: Return home Impression and plan of care have been directed as dictated by the signing physician. Kasia Angulo nurse practitioner acting as scribe for signing physician.
--- NOTE | 2017-12-18 15:49 | P.PN ---
Subjective Progress Note Date: 12/18/17 Principal diagnosis: Small bowel obstruction Patient doing well today. Still passing flatus. Today's small bowel series shows no evidence of obstruction. He is starting clear liquids at this time. Denies nausea. Objective - Vital Signs Vital signs: Vital Signs Temp 98.1 F 12/18/17 12:14 Pulse 66 12/18/17 12:14 Resp 14 12/18/17 12:14 BP 183/89 12/18/17 12:14 Pulse Ox 99 12/18/17 12:14 Intake & Output 12/17/17 12/18/17 12/18/17 18:59 06:59 18:59 Intake Total 220 Balance 220 Intake: Intake, IV Titration 100 Amount metroNIDAZOLE-NS PMX 500 100 mg In Saline 1 100ml.bag @ 100 mls/hr IVPB Q8HR [facility] Rx#:[id number] Oral 120 Other: Voiding Method Bedside Commode Toilet Toilet # Voids 3 2 1 - Exam Abdomen: Soft, nondistended, mild mid abdominal tenderness - Labs CBC & Chem 7: 12/17/17 07:08 12/17/17 07:08 Assessment and Plan (1) Small bowel obstruction Narrative/Plan: Bowel obstruction appears to be improved on small bowel series today. Gradually advance diet as tolerated. May discharge later this evening or tomorrow if tolerates. Follow-up as outpatient. Current Visit: Yes Status: Acute Code(s): K56.609 - UNSP INTESTNL OBST, UNSP TO PARTIAL VERSUS COMPLETE OBST SNOMED Code(s): 541435894
[2017-12-19] MEDS: metroNIDAZOLE-NS PMX 500 MG in SALINE 1 100ML.BAG IVPB SCH ×2 (00:09→08:40)
[2017-12-19] MEDS: HEPARIN SODIUM,PORCINE 5,000 UNIT/ML 1 ML VIAL SQ SCH ×2 (00:09→08:40)
[2017-12-19] MEDS: diphenhydrAMINE 50 MG/ML 1 ML VIAL IVP PRN (00:12)
[2017-12-19 04:46] VITALS: BP 154/77; PULSE 61; RESP 16; TEMP 97.9
[2017-12-19] MEDS: PANTOPRAZOLE 40 MG/10 ML VIAL IVP SCH (08:39)
--- NOTE | 2017-12-19 09:52 | P.PN ---
Progress Note - Text Progress Note Date: 12/19/17 The patient resting comfortably in his bed. He denies any significant abdominal pain. He's had bowel movements. On exam his vital signs are stable. His abdomen soft.. Patient will be hopefully discharge home today.
--- NOTE | 2017-12-19 12:19 | P.DS ---
Providers Date of admission: 12/15/17 16:58 Expected date of discharge: 12/19/17 Attending physician: Jessica Mendez Consults: 12/15/17 16:58 Consult Physician Urgent Consulting Provider: Braulio Coelho Reason/Comments: Small bowel obstruction Do you want consulting provider notified?: Yes Primary care physician: Abdias Villegas [facility] Course: This 67-year-old pleasant gentleman patient of Dr. Villegas. He has underlying history of colon cancer with right hemicolectomy [address] El, not requiring any chemotherapy. Also history of hypertension, BPH, was seen in the emergency room after she complained of abdominal pain since Thursday 4 days prior to admission. This started as indigestion-like feeling, epigastric region, radiating to the right lower quadrant area, this did not get any better with Pepto-Bismol, she has some nausea, and vomiting, and was seen in the office and was given Cipro and Flagyl. Patient took 1 dose of each antibiotic, and was seen last Thursday patient did not have any good response to this, and was subsequently seen in the emergency room In the emergency room CAT scan of the abdomen and pelvis shows mild liver enlargement 18 cm, fatty liver, gallbladder slightly hydropic 4.3 cm, no surrounding inflammation, there is multiple borderline mildly dilated small bowel loops with air-fluid levels, transition point noted deep to the umbilicus , small distal small bowel AV to bases collapsed. She was subsequently admitted for small bowel obstruction, consult to Gen. surgery. NG tube was not placed in the emergency room, after the patient was admitted patient had multiple loose stools thereafter, and can pass some clots this, nausea and vomiting has improved, has residual abdominal pain. Patient was seen by Dr. Coelho general surgery with no plans of surgical intervention at this time and is medically managed. Patient currently is nothing by mouth patient was started on IV antibiotics for clinical diverticulitis IV Levaquin and I be Flagyl, leukocytosis is noted on admission 12/16: Vital signs have been stable, patient is afebrile. Abdominal x-ray shows findings that should stress small bowel obstruction. Patient was passing gas last night. No nausea or vomiting. He continues to have abdominal pain. Dr. Coelho is planning for small bowel series tomorrow for possible exploratory laparotomy. 12/17: Patient states that he has been passing gas and he is passing the barium with a very tiny amount of stool. He has abdominal bloating. He underwent small bowel series and report is pending. Dr. Coelho has him tentatively scheduled for exploratory laparotomy. Blood pressure is running high for which IV enalapril added. 12/19: Patient underwent small bowel follow-through yesterday that showed no obvious persistent obstruction or zone of transition. Thickening of the distal ileal folds. Prominence of the jejunum. Correlate for ileitis which may be contributing to ileus of the jejunum. Significant hesitancy to the colon however is not evident. Patient has been cleared for discharge by general surgery. He has been having bowel movements and is anxious to be discharged home. Patient will be discharged home today in stable condition. Discharge diagnoses: 1. Acute small bowel obstruction was likely secondary to adhesions with known history of colon cancer 2. Colon cancer diagnosed in 2004 with right hemicolectomy, no chemotherapy. 3. Hypertension 4. Leukocytosis secondary ileitis 4. CKD stage II Discharge plan: Return home Impression and plan of care have been directed as dictated by the signing physician. Kasia Angulo nurse practitioner acting as scribe for signing physician. Patient Condition at Discharge: Good Plan - Discharge Summary New Discharge Prescriptions: Continue metroNIDAZOLE [Flagyl] 500 mg PO Q8H Krill Oil 500 mg PO DAILY Ciprofloxacin HCl [Cipro] 250 mg PO Q12HR Cholecalciferol [Vitamin D3] 1,000 unit PO DAILY Ubidecarenone [Co Q-10] 100 mg PO DAILY Multivitamins, Thera [Multivitamin (formulary)] 1 tab PO DAILY Finasteride [Proscar] 5 mg PO DAILY Bisoprolol [Zebeta] 5 mg PO DAILY Discharge Medication List Bisoprolol [Zebeta] 5 mg PO DAILY 12/15/17 [History] Cholecalciferol [Vitamin D3] 1,000 unit PO DAILY 12/15/17 [History] Ciprofloxacin HCl [Cipro] 250 mg PO Q12HR 12/15/17 [History] Finasteride [Proscar] 5 mg PO DAILY 12/15/17 [History] Krill Oil 500 mg PO DAILY 12/15/17 [History] Multivitamins, Thera [Multivitamin (formulary)] 1 tab PO DAILY 12/15/17 [History ] Ubidecarenone [Co Q-10] 100 mg PO DAILY 12/15/17 [History] metroNIDAZOLE [Flagyl] 500 mg PO Q8H 12/15/17 [History] Follow up Appointment(s)/Referral(s): Braulio Coelho MD [Medical Doctor] - 2 Weeks (call for follow up appt ) Abdias Villegas MD [Primary Care Provider] - 1 Week (call office for follow up appt) Patient Instructions/Handouts: Bowel Obstruction (ED) Activity/Diet/Wound Care/Special Instructions: Diet as tolerated Activity as tolerated Discharge Disposition: HOME SELF-CARE
== END 2017-12-19 11:00 | disposition home or self-care (01) | DRG 389 ==
LOC: EC 13:55 → 3NMEDONC 16:58
PROVIDERS: ADMIT Family Medicine; ATTEND Family Medicine
DX: K56.51 Intestinal adhesions [bands], with partial obstruction (principal); K57.92 Diverticulitis of intestine, part unspecified, without perforation or abscess without bleeding; Z85.038 Personal history of other malignant neoplasm of large intestine; Z90.49 Acquired absence of other specified parts of digestive tract; I12.9 Hypertensive chronic kidney disease with stage 1 through stage 4 chronic kidney disease, or unspecified chronic kidney disease; K52.9 Noninfective gastroenteritis and colitis, unspecified; K76.0 Fatty (change of) liver, not elsewhere classified; N18.2 Chronic kidney disease, stage 2 (mild); N40.0 Benign prostatic hyperplasia without lower urinary tract symptoms; Z80.7 Family history of other malignant neoplasms of lymphoid, hematopoietic and related tissues; Z82.49 Family history of ischemic heart disease and other diseases of the circulatory system; Z85.46 Personal history of malignant neoplasm of prostate; Z79.899 Other long term (current) drug therapy; Z84.1 Family history of disorders of kidney and ureter
CPT/HCPCS: 36415; 71046; 74021; 74177; 74250; 80048; 80053; 81001; 82150; 83690; 83880; 85025; 85610; 85730; 93005; 96361; 96374; 96375; 99285

== ENCOUNTER → 2017-12-15 | Outpatient (CLI) | payer BC ==
--- NOTE | 2017-12-15 13:23 | XR ---
Abdomen HISTORY: Constipation Frontal view of the abdomen on 2 images No comparisons Postop changes are noted within the abdomen, suture material is noted in the right hemiabdomen. There are vascular calcifications within the pelvis. There are some distended loops of small bowel present . Lung bases are clear. Suspect granuloma within the spleen. No evident pneumoperitoneum. IMPRESSION: Correlate for small bowel obstruction. There could be underlying ileus or enteritis. A Red level critical message alert has been initiated for Abdias Villegas MD via the [employer] on 12/15/2017 1:20 PM. This message alert has been sent to Abdias Villegas MD via the preferences provided by the clinician for the receipt of Radiology Critical Findings. Message ID [id number].
== END | disposition home or self-care (01) ==
LOC: RADXRMAIN 10:45
PROVIDERS: ATTEND Internal Medicine
DX: K59.00 Constipation, unspecified (principal)
CPT/HCPCS: 74018

== ENCOUNTER → 2018-04-20 | Outpatient (CLI) | payer BC, MEDICARE ==
--- NOTE | 2018-04-21 09:40 | XR ---
EXAMINATION TYPE: XR chest 2V DATE OF EXAM: 04/20/2018 COMPARISON: Prior chest x-ray 12/15/2017 HISTORY: Bronchitis, cough TECHNIQUE: Frontal and lateral views of the chest are obtained. FINDINGS: Patient is rotated. Cardiac mediastinal silhouette, pulmonary vascularity and leeann are sta ble. There is eventration of the right hemidiaphragm. No evident airspace disease, pneumothorax, or p leural effusion. Bronchial wall thickening suspected. Degenerative disc changes noted in the thoracic spine. IMPRESSION: Correlate for bronchitis, reactive airways disease, follow-up as indicated.
== END | disposition home or self-care (01) ==
LOC: RADXRMAIN 17:51
PROVIDERS: ATTEND Nurse Practitioner Family
DX: J40 Bronchitis, not specified as acute or chronic (principal)
CPT/HCPCS: 71046

== ENCOUNTER → 2018-04-27 | Outpatient (CLI) | payer BC, MEDICARE ==
--- NOTE | 2018-04-27 22:13 | US ---
EXAMINATION TYPE: US kidneys/renal and bladder DATE OF EXAM: 04/27/2018 COMPARISON: CT abdomen and pelvis December 15, 2012 CLINICAL HISTORY: R31.29 Other microscopic hematuria. Hematuria EXAM MEASUREMENTS: Right Kidney: 11.6 x 5.1 x 5.0 cm Left Kidney: 12.0 x 5.4 x 5.1 cm Right Kidney: no evidence of hydronephrosis Left Kidney: no evidence of hydronephrosis Bladder: wnl Bilateral Jets seen: yes Prominent prostate There is no evidence for hydronephrosis at this point in time. No nephrolithiasis is seen. No christine s are identified. The urinary bladder is satisfactorily distended. Bilateral ureteral jets are seen . IMPRESSION: Enlarged prostate gland redemonstrated. No suspicious findings seen to account for patient's symptoms of hematuria. If symptoms persist further investigation with CT urogram would be warranted.
== END | disposition home or self-care (01) ==
LOC: RADUSWWP 16:20
PROVIDERS: ATTEND Internal Medicine
DX: N40.0 Benign prostatic hyperplasia without lower urinary tract symptoms (principal); R31.29 Other microscopic hematuria
CPT/HCPCS: 76770

== ENCOUNTER → 2018-10-28 | Outpatient (CLI) | payer BC ==
--- NOTE | 2018-10-28 12:35 | ECHOS ---
STRESS ECHOCARDIOGRAM DATE OF SERVICE: 10/28/2018 INDICATIONS: Chest pain. MEDICATIONS: BASELINE HEART RATE: 60 BASELINE BLOOD PRESSURE: 150/66 MAXIMUM HEART RATE: 141 MAXIMUM BLOOD PRESSURE: 215/81 85% MPHR: 128 100% MPHR: 150 METS: 11.1 MAXIMUM STAGE REACHED: IV TOTAL EXERCISE TIME: 9 minutes 35 seconds CLINICAL INFORMATION: STRESS DATA: Heart rate 60, pressure is 150/66 mmHg. Baseline EKG showed sinus mechanism. The patient exercised on the treadmill according to Evans protocol for a total of 9 minutes and 35 seconds and achieved 11.1 METs. The max heart rate was 141, which is about 94% of maximum predicted heart rate. Maximum blood pressure was 215/81 mmHg. Clinically the patient did not have any symptoms of chest pain or chest discomfort. The EKG did not show any significant ST or T-wave abnormalities concerning for ischemia. ECHOCARDIOGRAM IMAGES: On echocardiogram images from parasternal long axis view, parasternal short axis view, apical 4 chamber and apical 2 chamber view were obtained as the baseline images, at the peak of the heart as well as on recovery and the echocardiogram images showed good augmentation in the left ventricular systolic function without any evidence of wall motion abnormalities concerning for ischemia. CONCLUSION: 1. Excellent exercise capacity. 2. Normal EKG in response to exercise. 3. Normal echocardiogram in response to exercise. 4. Essentially normal stress echocardiogram. MMODL / IJN: [id number] /
== END | disposition home or self-care (01) ==
LOC: RADNMMAIN 09:49
PROVIDERS: ATTEND Internal Medicine
DX: R07.9 Chest pain, unspecified (principal)
CPT/HCPCS: 93351

== ENCOUNTER 2018-11-17 10:16 | Day surgery (SDC) | payer BC ==
[2018-11-16 09:03] VITALS: BMI 31.4
[~2018-11-17 10:16] MED LIST: LACTATED RINGERS 1,000 ML IV SCH; LIDOCAINE 1% 20 ML VIAL (10MG/ML) FOR IV START INTRADERMA PRN
[2018-11-17 10:32] VITALS: TEMP 97.9
[2018-11-17] MEDS ORDERED: PROPOFOL 10 MG/ML 20 ML VIAL IV ONE (11:10)
--- NOTE | 2018-11-17 11:23 | P.GSHP ---
History of Present Illness H&P Date: 11/17/18 Chief Complaint: Colon cancer screening 68-year-old male known to our service. Patient had previous right colectomy for colon cancer. Lately has had some mild lower abdominal pain. Last colonoscopy 4-5 years ago. Past Medical History Past Medical History: Cancer, Hypertension, Prostate Disorder Additional Past Medical History / Comment(s): colon cancer 2004 with surgery., BPH History of Any Multi-Drug Resistant Organisms: None Reported Past Surgical History: Bowel Resection, Hernia Repair Additional Past Surgical History / Comment(s): R hemicolectomy Past Anesthesia/Blood Transfusion Reactions: No Reported Reaction Past Psychological History: No Psychological Hx Reported Smoking Status: Former smoker Past Alcohol Use History: Daily Additional Past Alcohol Use History / Comment(s): quit smoking 28 yrs ago, smoked approx 20 years. Drinks 2 Beers daily. Past Drug Use History: None Reported - Past Family History Father Family Medical History: Congestive Heart Failure (CHF), Hypertension Brother(s) Family Medical History: Cancer, Renal Disease Sister(s) Family Medical History: Cancer Daughter(s) Family Medical History: Unable to Obtain Son(s) Family Medical History: No Reported History Medications and Allergies Home Medications Medication Instructions Recorded Confirmed Type Bisoprolol [Zebeta] 5 mg PO DAILY 12/15/17 11/17/18 History Ibuprofen 200 mg PO DAILY PRN 11/16/18 11/17/18 History Allergies Allergy/AdvReac Type Severity Reaction Status Date / Time No Known Allergies Allergy Verified 11/17/18 10:32 Surgical - Exam Vital Signs Temp Pulse Resp BP Pulse Ox 97.9 F 55 L 16 191/92 99 11/17/18 10:27 11/17/18 10:27 11/17/18 10:27 11/17/18 10:27 11/17/18 10:27 Physical exam: General: Well-developed, well-nourished HEENT: Normocephalic, sclerae nonicteric Abdomen: Nontender, nondistended Extremities: No edema Neuro: Alert and oriented Assessment and Plan (1) Colon cancer screening Narrative/Plan: Will proceed with colonoscopy at this time Current Visit: Yes Status: Acute Code(s): Z12.11 - ENCOUNTER FOR SCREENING FOR MALIGNANT NEOPLASM OF COLON SNOMED Code(s): 087973011
--- NOTE | 2018-11-17 11:24 | P.PCN ---
Date of Procedure: 11/17/18 Procedure(s) Performed: PREOPERATIVE DIAGNOSIS: Colon cancer screening POSTOPERATIVE DIAGNOSIS: Diverticulosis PROCEDURE: Colonoscopy ANESTHESIA: MAC SURGEON: Braulio Coelho M.D. SPECIMENS: None ENDOSCOPIC PROCEDURE: The patient was placed on the endoscopy table in the left decubitus position. The Olympus colonoscope was inserted into the anus and passed under direct visualization to the colocolonic anastomosis in the mid transverse colon. The anastomosis was widely patent. There was no evidence of any neoplastic inflammatory or polypoid lesions throughout the anastomotic site, transverse, descending, sigmoid, and rectum. There was mild sigmoid diverticulosis without inflammation seen. Digital rectal examination was normal. The patient was taken to the recovery room in stable condition per anesthesia guidelines. RECOMMENDATIONS: Resume diet. Follow-up colonoscopy 5 years.
[2018-11-17 12:05] VITALS: BP 128/72; PULSE 66; RESP 18
== END 2018-11-17 12:07 | disposition home or self-care (01) ==
LOC: ORWHC2ENDO 10:16
PROVIDERS: ATTEND Surgery
DX: Z12.11 Encounter for screening for malignant neoplasm of colon (principal); K57.30 Diverticulosis of large intestine without perforation or abscess without bleeding; I10 Essential (primary) hypertension; N40.0 Benign prostatic hyperplasia without lower urinary tract symptoms; Z82.49 Family history of ischemic heart disease and other diseases of the circulatory system; Z87.891 Personal history of nicotine dependence; Z79.1 Long term (current) use of non-steroidal anti-inflammatories (NSAID); Z79.899 Other long term (current) drug therapy
CPT/HCPCS: G0121; J2704; 45378

== ENCOUNTER → 2019-08-12 | Outpatient (CLI) | payer BC ==
[2019-08-12 10:20] LABS: Basophils % (A) 0 %; Eosinophils # (A) 0.1 k/uL (0-0.7); Eosinophils % (A) 2 %; HGB 14.8 gm/dL (13.0-17.5); Lymphocytes % (A) 13 %; MCH 29.8 pg (25.0-35.0); MCHC 31.4 g/dL (31.0-37.0); MCV 94.8 fL (80.0-100.0); Monocytes # (A) 0.6 k/uL (0-1.0); Monocytes % (A) 7 %; Neutrophils # (A) 5.8 k/uL (1.3-7.7); Neutrophils % (A) 76 %; Platelet Count 174 k/uL (150-450); RBC 4.96 m/uL (4.30-5.90); RDW 13.1 % (11.5-15.5); WBC 7.7 k/uL (3.8-10.6)
[2019-08-12 16:51] LABS: African American GFR (CKD) 77.9 (60.0-200.0); Albumin 4.1 g/dL (3.80-4.90); Albumin/Globulin Ratio 1.86 (1.60-3.17); BUN/Creat Ratio 20.91 Ratio (12.00-20.00); Calcium 8.8 mg/dL (8.7-10.3); Chol/HDL Ratio 3.26; Globulin 2.2 g/dL (1.6-3.3); LDL Cholesterol,Calculated 96.8 mg/dL (0.0-131.0); Non-African American GFR(CKD) 67.2 (60.0-200.0); Potassium 4.2 mmol/L (3.5-5.5); Total Bilirubin 0.7 mg/dL (0.3-1.2); Total Protein 6.3 g/dL (6.2-8.2); VLDL Calculation 25.2 mg/dL (5.00-40.00)
== END | disposition home or self-care (01) ==
LOC: LABWHC1 09:24
PROVIDERS: ATTEND Internal Medicine
DX: I10 Essential (primary) hypertension (principal); E78.2 Mixed hyperlipidemia
CPT/HCPCS: 36415; 80053; 80061; 84443; 85025

== ENCOUNTER → 2021-06-27 | Outpatient (CLI) | payer MEDICARE ==
--- NOTE | 2021-06-27 11:52 | XR ---
EXAMINATION TYPE: XR KUB DATE OF EXAM: 06/27/2021 COMPARISON: 12/18/2017 HISTORY: Hematuria TECHNIQUE: One view abdominal series FINDINGS: The osseous structures are intact. The bowel gas pattern is nonspecific. Hypertrophic and degenerati ve change of the spine. Calcifications in the pelvis are nonspecific but likely vascular. Arthropathy of the hips. Calcificat ion overlying the region of the spleen likely related to splenic granuloma. Bowel content limits eval uation of the renal outlines with no definite suspicious calcifications. IMPRESSION: 1. Nonspecific abdomen.
== END | disposition home or self-care (01) ==
LOC: RADXRMAIN 11:21
PROVIDERS: ATTEND Internal Medicine
DX: R31.9 Hematuria, unspecified (principal)
CPT/HCPCS: 74018

== ENCOUNTER → 2021-07-24 | Outpatient (CLI) | payer MEDICARE ==
--- NOTE | 2021-07-24 12:11 | NM ---
EXAMINATION TYPE: NM stress cardiolite complete DATE OF EXAM: 07/24/2021 COMPARISON: NONE HISTORY: I25.10 atherosclerotic heart disease TECHNIQUE: After the intravenous administration of 9.7 mCi Tc 99m Sestamibi - Rest images obtained 6 0 minutes post injection. The patient exercised using a ÓSCAR protocol and 1 minute prior to peak e xercise was injected with 24.5 mCi Tc 99m Sestamibi - Stress images obtained 15 minutes post injectio n. FINDINGS: Targeted heart rate was achieved during performance of the study, patient achieved 86% of predicted m aximal heart rate. Review of stress and rest SPECT images demonstrates no distinct perfusion abnormal ity. Gated analysis shows normal wall motion with an estimated left ventricular ejection fraction of 88 %. IMPRESSION: No scintigraphic evidence for reversible ischemia, consider echocardiographic correlation for elevate d ejection fraction
--- NOTE | 2021-07-24 13:04 | CA ---
Exercise Stress Test Report Name: Homero Chen Exam Date: 07/24/2021 10:32 Exam Location: [place] Stress Ht (in): 66 Wt (lb): 198 BSA: 1.99 Ordering Phys: Abdias Villegas MD Referring Phys: Bakari, Technologist: Gabe Kelly Age: 71 Gender: M : 1950 Procedure CPT: Indications: I25.10 Atherosclerotic heart disease ICD-10 Codes: Patient History: ASCAD, Hypertension Medications: Meds past 24 hrs: Pretest Chest Pain: STRESS TEST Evans Protocol Exercise Duration (min:sec): 09:[address] Depressions (mm): Angina Score: Villatoro Score: Resting HR (bpm): 58 Peak HR (bpm): 126 Resting BP (mmHg): 148 / 82 Peak BP (mmHg): / 94 MPHR: 147 Target HR: 125 % MPHR: 86 METS: 12.1 Total Dose: Peak Dose: Atropine: Double Product: BP Response: Stress Termination: Reached target heart rate Stress Symptoms: Dyspnea Stress Summary: ECG ANALYSIS Resting ECG: Stress ECG: CONCLUSIONS Patient underwent exercise stress Cardiolite with a Evans protocol treadmill stress test. Patient exercised into Stage 3 for a total of 9 minutes and 37 seconds reaching a total of 12.1 METS. Patient's maximum heart rate was 126 which represented 85 % age-predicted maximum heart rate. Stress EKG findings: At baseline patient's EKG showed normal sinus rhythm, normal axis, normal 0.[address] depressions in the inferior lateral leads. At peak exercise, EKG showed mild accentuation of baseline ST depressions in the inferior and lateral leads.. Conclusions: 1. Nondiagnostic EKG portion secondary to baseline abnormal EKG 2. Excellent exercise capacity. 3. Nuclear portion to be reported separately Dr. Eric Hunter DO (Electronically Signed) Final Date: 24 July 2021 13:02
== END | disposition home or self-care (01) ==
LOC: RADNMMAIN 08:37
PROVIDERS: ATTEND Internal Medicine
DX: I25.10 Atherosclerotic heart disease of native coronary artery without angina pectoris (principal); R94.31 Abnormal electrocardiogram [ECG] [EKG]
CPT/HCPCS: 93017; 78452; A9500

== ENCOUNTER → 2022-08-05 | Outpatient (CLI) | payer MEDICARE ==
[2022-08-05 15:52] LABS: HCT 48.4 % (39.6-50.0); MCH 30.3 pg (27.0-32.0); MCV 97.8 FL (80.0-97.0); Mean Platelet Volume 10.6 FL (9.5-12.2); NRBC Per 100 WBC 0 X 10*3/uL (0.00-0.01); Platelet Count 199 X 10*3/uL (140-440); RBC 4.95 X 10*6/uL (4.40-5.60); WBC 8.63 X 10*3/uL (4.50-10.00)
[2022-08-05 16:43] LABS: Blood Urea Nitrogen 22.4 mg/dL (9.0-27.0)
[2022-08-05 16:44] LABS: Carbon Dioxide 25.3 mmol/L (21.6-31.8); Chloride 104 mmol/L (96-109); Potassium 4.4 mmol/L (3.5-5.5); Sodium 142 mmol/L (135-145)
== END | disposition home or self-care (01) ==
LOC: LABPAT 08:09
PROVIDERS: ATTEND Internal Medicine Interventional Cardiology
DX: Z01.812 Encounter for preprocedural laboratory examination (principal); I20.9 Angina pectoris, unspecified
CPT/HCPCS: 36415; 80051; 82565; 84520; 85027

== ENCOUNTER 2022-08-11 10:09 | Day surgery (SDC) | payer MEDICARE ==
[2022-08-07 09:43] VITALS: BMI 31.9
[~2022-08-11 10:09] MED LIST changes: +ALPRAZolam 0.25 MG TAB PO PRN; +ALPRAZolam 0.5 MG TAB PO PRN; +ASPIRIN 325 MG TAB PO STA; -LACTATED RINGERS 1,000 ML IV SCH; -LIDOCAINE 1% 20 ML VIAL (10MG/ML) FOR IV START INTRADERMA PRN; +NITROGLYCERIN SL TABS 0.4 MG TAB SUBLINGUAL PRN
[2022-08-11] MEDS ORDERED: SODIUM CHLORIDE 0.9% 1,000 ML IV ONE ×2 (10:16→13:19)
[2022-08-11] MEDS ORDERED: VERAPAMIL 2.5 MG/ML 2 ML AMP ONE (11:44)
[2022-08-11] MEDS ORDERED: fentaNYL (PF) 50 MCG/ML 2 ML AMP ONE (12:07)
[2022-08-11] MEDS ORDERED: HEPARIN SODIUM 1,000 UN/ML (10ML VL) ONE (12:07)
[2022-08-11] MEDS ORDERED: fentaNYL (PF) 50 MCG/ML 2 ML AMP IV ONE (12:41)
[2022-08-11] MEDS ORDERED: LIDOCAINE 1% INJ 10MG/ML (5 ML VIAL-PF) SQ ONE (12:46)
[2022-08-11] MEDS ORDERED: VERAPAMIL SYRINGE (5 MG/10 ML) INTRAARTER ONE (12:47)
[2022-08-11] MEDS: HEPARIN SODIUM 1,000 UN/ML (10ML VL) IV ONE ×2 (12:50→12:54)
[2022-08-11] MEDS ORDERED: CLOPIDOGREL 75 MG TAB ONE (12:55)
[2022-08-11] MEDS ORDERED: CLOPIDOGREL 75 MG TAB PO ONE (12:56)
[2022-08-11] MEDS ORDERED: IOPAMIDOL-370 100ML BTL INJ ONE ×2 (13:11→13:18)
[2022-08-11] MEDS ORDERED: ATROPINE SULFATE 0.1 MG/ML 10ML SYRINGE IV PRN (13:33)
[2022-08-11] MEDS ORDERED: NITROGLYCERIN SL TABS 0.4 MG TAB SUBLINGUAL PRN (13:33)
[2022-08-11] MEDS ORDERED: MAG HYDROX/AL HYDROX/SIMETH 30 ML CUP PO PRN (13:33)
[2022-08-11] MEDS ORDERED: RX INFO: IV CONTRAST WAS GIVEN 1 EACH MISC MISCELLANE PRN (13:33)
[2022-08-11] MEDS ORDERED: ZOLPIDEM 5 MG TAB PO PRN (13:33)
--- NOTE | 2022-08-11 13:43 | P.CARDCATH ---
Date of Procedure: 08/11/22 Description of Procedure: Cardiac Catheterization: The patient is a 72-year-old male with a known history of hypertension and hyperlipidemia, high calcium score recently has been complaining of progressive exertional chest discomfort consistent with angina pectoris of new onset. Recommendations were made regarding cardiac catheterization, the risks and the complications were discussed with the patient who is in full understanding and agreement. Procedure Description: Patient was brought to laborer [employer] in fasting semi-sedated state after receiving Fentanyl and Benadryl achieiving moderate conscious sedated state. Using Xylocaine Anesthesia and Seldinger technique, a 6-Argentine sheath was introduced in the right radial artery . Subsequently, selective coronary angiography was performed using a 5-Argentine 3.5 bend Junaid catheter. Multiple views of the coronary artery including hemiaxial views were obtained. T PCI: After removing the catheter 6-Argentine AL 0.75 guiding catheter was introduced into system and after cannulating the right coronary ostium a 0.014 BMW J-wire was positioned in the distal RCA subsequently 2.5 x 12 mm Treck was advanced and one inflation at 8 sheila was done, after removing the balloon a [employer] eye intravascular ultrasound catheter was introduced and imaging were obtained. After removing the catheter 3.25 x 23 mm Xience awilda point stent was deployed at 16 sheila. After removing the balloon the wire was removed and image was obtained and revealed stable successful stenting. Following that, catheter and sheath were removed. Hemostasis was obtained with deployment of TR band . There was no immediate complication. Patient was returned to room in stable condition. Of note, the patient received a total of 6500 units of intravenous heparin as well as intra-arterial verapamil. His ACT was monitored, he received an oral loading dose of clopidogrel. He had no significant chest discomfort or EKG changes with the inflations. Findings: Left main: This is a short sized vessel, bifurcating into LAD and left circumflex, left main has no high-grade stenosis LAD: This is a large size vessel giving rise to a moderately sized diagonal proximally. Prior to the diagonal branch takeoff there is an eccentric 70-80% stenosis, the results of the vessel has no high-grade stenosis Left circumflex: This is a nondominant large size vessel, giving rise to a large obtuse marginal branch, the left circumflex has diffuse intimal disease of 20- 30% with no high-grade stenosis RCA: This is a dominant vessel, large in caliber, bifurcating distally to PDA and PLV. The mid RCA has a 99% stenosis, the rest of the vessel has no high- grade stenosis. Left Ventriculogram: Not performed Conclusion: 1. Severe stenosis in the mid RCA 2. 70-80% eccentric lesion in the proximal LAD 3. Mild disease in the left circumflex 4. Successful stenting of the mid RCA with reduction in stenosis from 99% to 0% with intravascular ultrasound imaging Recommendations: The patient will continue on aspirin and Plavix for 6 months without any interruption, he'll be readmitted at a later time to undergo revascularization of his LAD. He will continue aggressive coronary risks modifications. The findings and the recommendations were discussed with the patient and the family and they were in full understanding and agreement. Duration of sedation is 37 minutes.
[2022-08-11] MEDS ORDERED: SODIUM CHLORIDE 0.9% 1,000 ML in EMPTY BAG 1 BAG IV SCH (13:45)
[2022-08-11] MEDS: SODIUM CHLORIDE 0.9% 1,000 ML in EMPTY BAG 1 BAG IV SCH ×3 (15:39→20:31)
[2022-08-11] MEDS ORDERED: BISOPROLOL 5 MG TAB PO SCH (21:00)
[2022-08-11] MEDS ORDERED: ATORVASTATIN 40 MG TAB PO SCH (21:00)
[2022-08-12 05:39] VITALS: RESP 16
[2022-08-12 06:38] LABS: African American GFR (CKD) 86 (>60 ml/min/1.73 sqM); Anion Gap 7 mmol/L; Blood Urea Nitrogen 19 mg/dL (9-20); Calcium 8.5 mg/dL (8.4-10.2); Carbon Dioxide 23 mmol/L (22-30); Chloride 108 mmol/L (98-107); Glucose 98 mg/dL (74-99); Non-African American GFR(CKD) 75 (>60 ml/min/1.73 sqM); Potassium 4.2 mmol/L (3.5-5.1); Sodium 138 mmol/L (137-145)
[2022-08-12 08:38] VITALS: BP 159/84; PULSE 58; TEMP 98.1
--- NOTE | 2022-08-12 08:40 | P.PN ---
Subjective Progress Note Date: 08/12/22 PROGRESS NOTE The patient is a 72-year-old male with a known history of hyperlipidemia and hypertension who presented with symptoms of new onset angina, underwent cardiac catheterization was found to have severe stenosis in the mid RCA and proximal LAD. He underwent stenting of the RCA. He is doing well this morning, he denies any chest discomfort, dizziness or palpitations. He is in sinus mechanism. Medications: Aspirin, Plavix 75 mg daily, Lipitor 40 mg daily, Cozaar 50 mg daily, bisoprolol 5 mg daily PHYSICAL EXAMINATION: Blood pressure 150/80 heart rate 58 LUNGS: Clear to auscultation HEART: Regular rate and rhythm, S1, S2. No S3. systolic ejection murmur ABDOMEN: Soft, nontender, no organomegaly EXTREMETIES: No edema, right radial pulse intact LAB: Potassium 4.2, BUN 19, creatinine 0.99. EKG with no acute changes. IMPRESSION: 1. Status post stenting of the RCA 2. Significant disease in the proximal LAD 3. Hypertension 4. Hyperlipidemia PLAN: 1. Increase physical activity 2. Continue present therapy 3. Discharged home today 4. And follow-up in one week, the patient will be readmitted to undergo PCI of his LAD Objective - Vital Signs Vital signs: Vital Signs Temp 98.1 F 08/12/22 08:37 Pulse 58 L 08/12/22 08:37 Resp 16 08/12/22 08:37 BP 159/84 08/12/22 08:37 Pulse Ox 99 08/12/22 08:37 FiO2 Intake & Output 08/11/22 08/12/22 08/12/22 18:59 06:59 18:59 Intake Total 1100 Balance 1100 Weight 90.3 kg Intake: IV 1100 Other: # Voids 1 3 - Labs CBC & Chem 7: 08/12/22 05:59 Labs: Abnormal Lab Results - Last 24 Hours (Table) 08/12/22 Range/Units 05:59 Chloride 108 H (98-107) mmol/L
[2022-08-12] MEDS ORDERED: LOSARTAN 50 MG TAB PO SCH (09:00)
[2022-08-12] MEDS ORDERED: ASPIRIN 81 MG PO SCH (09:00)
[2022-08-12] MEDS ORDERED: ISOSORBIDE MONONITRATE ER 30 MG TAB.ER.24H PO SCH (09:00)
[2022-08-12] MEDS ORDERED: CLOPIDOGREL 75 MG TAB PO SCH (09:00)
== END 2022-08-12 09:58 | disposition home or self-care (01) ==
LOC: CATHCVL 10:09 → 6NMEDSUR 13:18 → UNDOADMOB 13:18 → CATHCVL 08-12 09:58 → UNDODISOB 08-12 09:58
PROVIDERS: ATTEND Internal Medicine Interventional Cardiology
DX: I20.9 Angina pectoris, unspecified (principal); I10 Essential (primary) hypertension; E78.5 Hyperlipidemia, unspecified
CPT/HCPCS: 92978; 93454; 80048; C9600; C1769 ×3; C1887; C1894; C1725; C1753; C1874; J2001; J3010; J1644; Q9967

== ENCOUNTER 2022-09-05 07:17 | Day surgery (SDC) | payer MEDICARE ==
[2022-09-03 08:58] VITALS: BMI 32.1
[~2022-09-05 07:17] MED LIST changes: +SODIUM CHLORIDE 0.9% 1,000 ML in EMPTY BAG 1 BAG IV SCH
[2022-09-05] MEDS ORDERED: SODIUM CHLORIDE 0.9% 1,000 ML IV ONE ×2 (07:31)
[2022-09-05 07:42] VITALS: RESP 16; TEMP 98.2
[2022-09-05 07:50] LABS: Basophils % (A) 0 %; Eosinophils # (A) 0.4 k/uL (0-0.7); Eosinophils % (A) 4 %; HCT 45.2 % (39.0-53.0); Lymphocytes % (A) 12 %; MCH 30.9 pg (25.0-35.0); MCHC 33.3 g/dL (31.0-37.0); MCV 92.6 fL (80.0-100.0); Monocytes # (A) 0.7 k/uL (0-1.0); Monocytes % (A) 8 %; Neutrophils # (A) 6.1 k/uL (1.3-7.7); Neutrophils % (A) 72 %; Platelet Count 170 k/uL (150-450); RBC 4.87 m/uL (4.30-5.90); WBC 8.5 k/uL (3.8-10.6)
[2022-09-05] MEDS ORDERED: HEPARIN SODIUM 1,000 UN/ML (10ML VL) ONE (08:37)
[2022-09-05] MEDS ORDERED: fentaNYL (PF) 50 MCG/ML 2 ML AMP ONE (08:37)
[2022-09-05] MEDS ORDERED: VERAPAMIL 2.5 MG/ML 2 ML AMP ONE (08:37)
[2022-09-05] MEDS ORDERED: fentaNYL (PF) 50 MCG/ML 2 ML AMP IVP ONE (09:15)
[2022-09-05] MEDS ORDERED: LIDOCAINE 1% INJ 10MG/ML (5 ML VIAL-PF) SQ ONE (09:19)
[2022-09-05] MEDS ORDERED: VERAPAMIL SYRINGE (5 MG/10 ML) INTRAARTER ONE (09:21)
[2022-09-05] MEDS ORDERED: HEPARIN SODIUM 1,000 UN/ML (10ML VL) IV ONE (09:25)
[2022-09-05] MEDS ORDERED: IOPAMIDOL-370 100ML BTL INJ ONE (09:45)
[2022-09-05] MEDS ORDERED: MAG HYDROX/AL HYDROX/SIMETH 30 ML CUP PO PRN (10:01)
[2022-09-05] MEDS ORDERED: RX INFO: IV CONTRAST WAS GIVEN 1 EACH MISC MISCELLANE PRN (10:01)
[2022-09-05] MEDS ORDERED: ATROPINE SULFATE 0.1 MG/ML 10ML SYRINGE IV PRN (10:01)
[2022-09-05] MEDS ORDERED: NITROGLYCERIN SL TABS 0.4 MG TAB SUBLINGUAL PRN (10:01)
[2022-09-05] MEDS ORDERED: ZOLPIDEM 5 MG TAB PO PRN (10:01)
--- NOTE | 2022-09-05 10:11 | P.CARDCATH ---
Date of Procedure: 09/05/22 Description of Procedure: Cardiac Catheterization: The patient is a 72-year-old male with a known history of CAD status post stenting of the RCA in July and was found to have significant obstructive disease in the proximal LAD, he is admitted today to undergo reevaluation and possible stenting of the LAD. Recommendations were made regarding cardiac catheterization, the risks and the complications were discussed with the patient who is in full understanding and agreement. 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 Using Xylocaine Anesthesia and Seldinger technique, a 6-Kittitian sheath was introduced in the right radial artery . Subsequently, selective coronary angiography was performed using a 5-Kittitian 3.5 bend Junaid catheter and 6-Kittitian EBU 3.75 guiding catheter. Multiple views of the coronary artery including hemiaxial views were obtained. PCI: Using the 6-Kittitian 3.75 guiding catheter and after cannulating the left main a 0.014 BMW J-wire was positioned in the distal LAD, subsequently 2.5 x 12 mm NC Treck was advanced and one inflation at 10 sheila was done, after removing the balloon a [employer] intravascular ultrasound catheter was introduced and images were obtained. Subsequently 3.25 x 18 mm Xience awilda point stent was deployed at 16 sheila. Repeat intravascular ultrasound imaging was performed and a 4.0 x 8 mm NC Treck was advanced and one inflation in the proximal segment of the stent at 10 sheila was done subsequently the wire was withdrawn and images were obtained that revealed stable successful stenting. Following that, catheter and sheath were removed. Hemostasis was obtained with deployment of TR band . There was no immediate complication. Patient was returned to room in stable condition. Of note, the patient received a total of 6500 units of intravenous heparin as well as intra-arterial verapamil. Findings: Fluoroscopy: Calcifications of the LAD was noted Left main: This is a large size vessel, bifurcating into LAD and left circumflex, the distal left main has 10% plaque LAD: This is a large size vessel, calcified proximally, evening rise to a moderately sized diagonal branch. The proximal LAD has an 80% plaque, the mid segment has mild intimal disease with no high-grade stenosis Left circumflex: This is a nondominant vessel giving rise to a large obtuse marginal branch that has a 30-40% plaque, the rest of the vessel has no high- grade stenosis RCA: This is a dominant vessel bifurcating distally to PDA and PLV. The stented segment in the mid RCA is patent. There is a 20-30% plaque proximal to the stent, the rest of the vessel has no high-grade stenosis Left Ventriculogram: Not performed Conclusion: 1. Calcified proximal LAD 2. Significant disease in the proximal LAD 3. Patent stent in the RCA with mild disease proximal to the RCA 4. Mild disease in the left circumflex 5. Successful stenting of the proximal LAD with reduction of stenosis from 80% to 0% with intravascular ultrasound imaging Recommendations: The patient will continue on aspirin and Plavix for 6 months without any interruption in addition to aggressive coronary risks modification. The findings and the recommendations were discussed with the patient and the family and they were in full understanding and agreement. Duration of sedation is 33 minutes.
[2022-09-05] MEDS ORDERED: SODIUM CHLORIDE 0.9% 1,000 ML in EMPTY BAG 1 BAG IV SCH (10:15)
[2022-09-05 13:56] VITALS: BP 140/63; PULSE 60
[2022-09-05] MEDS ORDERED: ATORVASTATIN 40 MG TAB PO SCH (21:00)
[2022-09-05] MEDS ORDERED: BISOPROLOL 5 MG TAB PO SCH (21:00)
[2022-09-06] MEDS ORDERED: ISOSORBIDE MONONITRATE ER 30 MG TAB.ER.24H PO SCH (09:00)
[2022-09-06] MEDS ORDERED: LOSARTAN 50 MG TAB PO SCH (09:00)
[2022-09-06] MEDS ORDERED: ASPIRIN 81 MG PO SCH (09:00)
[2022-09-06] MEDS ORDERED: CLOPIDOGREL 75 MG TAB PO SCH (09:00)
== END 2022-09-05 13:56 | disposition home or self-care (01) ==
LOC: CATHCVL 07:17
PROVIDERS: ATTEND Internal Medicine Interventional Cardiology
DX: I25.10 Atherosclerotic heart disease of native coronary artery without angina pectoris (principal); Z95.5 Presence of coronary angioplasty implant and graft; I10 Essential (primary) hypertension; E78.2 Mixed hyperlipidemia; F10.20 Alcohol dependence, uncomplicated; Z85.038 Personal history of other malignant neoplasm of large intestine; Z87.891 Personal history of nicotine dependence; Z79.02 Long term (current) use of antithrombotics/antiplatelets; Z79.82 Long term (current) use of aspirin; Z79.899 Other long term (current) drug therapy
CPT/HCPCS: 99152; 99153; 92978; 85025; C9600; C1769 ×3; C1887; C1894; C1753; C1874; C1725 ×2; J2001; J3010; J1644; Q9967; 93454

== ENCOUNTER 2022-09-13 03:02 | Observation (INO) | payer MEDICARE ==
--- NOTE | 2022-09-13 03:37 | ED ---
General Adult HPI - General Chief complaint: Extremity Problem,Nontraumatic Stated complaint: Left Arm Numbness, Recent Heart Stent Time Seen by Provider: 09/13/22 03:04 Source: patient, RN notes reviewed, old records reviewed Mode of arrival: ambulatory Limitations: no limitations - History of Present Illness Initial comments: 72-year-old male history of coronary artery disease with recent stenting of both the LAD and RCA. Patient presents for evaluation of left arm pain with some numbness. Patient is concerned this could be related to his heart. He denies weakness. Denies central chest pain. Denies vomiting. He states he was quite active today removing several downed trees. Patient denies any speech abnormalities, no facial weakness, no limb weakness. - Related Data Home Medications Medication Instructions Recorded Confirmed Bisoprolol [Zebeta] 5 mg PO HS 12/15/17 09/05/22 Aspirin EC [Ecotrin Low Dose] 81 mg PO DAILY 08/07/22 09/05/22 Beta-Carotene [Beta Carotene] 25,000 unit PO DAILY 08/07/22 09/05/22 Cholecalciferol [Vitamin D3 (25 50 mcg PO DAILY 08/07/22 09/05/22 Mcg = 1000 Iu)] Cyanocobalamin (Vitamin B-12) 2,500 mcg PO DAILY 08/07/22 09/05/22 [Vitamin B-12] Isosorbide Mononitrate ER [Imdur] 30 mg PO DAILY 08/07/22 09/05/22 Krill/Om-3/Dha/Epa/Phospho/Ast 1 each PO DAILY 08/07/22 09/05/22 [Krill Oil 500 mg Softgel] Loratadine 10 mg PO DAILY 08/07/22 09/05/22 Losartan [Cozaar] 100 mg PO DAILY 08/07/22 09/05/22 Multivit,Calc,Min/FA/K1/Lycop 1 each PO DAILY 08/07/22 09/05/22 [One-A-Day Men's Complete Tab] Mv-Mn/Om3/Dha/Epa/Fish/Lut/Elsy 1 each PO DAILY 08/07/22 09/05/22 [Ocuvite Adult 50 Plus Softgel] Selenium 200 mcg PO DAILY 08/07/22 09/05/22 Ubidecarenone [Co Q-10] 30 mg PO DAILY 08/07/22 09/05/22 Zinc Gluconate [Zinc] 50 mg PO DAILY 08/07/22 09/05/22 Previous Rx's Medication Instructions Recorded Atorvastatin [Lipitor] 40 mg PO HS #90 tab 08/12/22 Clopidogrel [Plavix] 75 mg PO DAILY #90 tab 08/12/22 Nitroglycerin Sl Tabs [Nitrostat] 0.4 mg SUBLINGUAL Q5M PRN #25 tab 08/12/22 Allergies Allergy/AdvReac Type Severity Reaction Status Date / Time No Known Allergies Allergy Verified 09/13/22 03:05 Review of Systems ROS Statement: Those systems with pertinent positive or pertinent negative responses have been documented in the HPI. ROS Other: All systems not noted in ROS Statement are negative. Past Medical History Past Medical History: Coronary Artery Disease (CAD), Cancer, Hypertension, Prostate Disorder Additional Past Medical History / Comment(s): colon cancer 2003-no radiation or chemo,enlarged prostate History of Any Multi-Drug Resistant Organisms: None Reported Past Surgical History: Bowel Resection, Heart Catheterization With Stent, Hernia Repair Additional Past Surgical History / Comment(s): R hemicolectomy Past Anesthesia/Blood Transfusion Reactions: No Reported Reaction Date of Last Stent Placement:: 08-11-22 Past Psychological History: No Psychological Hx Reported Smoking Status: Former smoker Past Alcohol Use History: None Reported Past Drug Use History: None Reported - Past Family History Father Family Medical History: Congestive Heart Failure (CHF), Hypertension Brother(s) Family Medical History: Cancer, Renal Disease Sister(s) Family Medical History: Cancer Daughter(s) Family Medical History: Unable to Obtain Son(s) Family Medical History: No Reported History General Exam Limitations: no limitations General appearance: alert, in no apparent distress Head exam: Present: atraumatic, normocephalic Eye exam: Present: normal appearance, PERRL ENT exam: Present: normal exam Neck exam: Present: normal inspection. Absent: tenderness, meningismus Respiratory exam: Present: normal lung sounds bilaterally. Absent: respiratory distress, wheezes Cardiovascular Exam: Present: regular rate, normal rhythm GI/Abdominal exam: Present: soft. Absent: distended, tenderness, guarding Extremities exam: Present: normal inspection, normal capillary refill. Absent: pedal edema Neurological exam: Present: alert, oriented X3, CN II-XII intact. Absent: motor sensory deficit Psychiatric exam: Present: normal affect, normal mood Skin exam: Present: warm, dry, intact. Absent: cyanosis, diaphoretic Course Vital Signs 09/13/22 09/13/22 09/13/22 03:05 04:32 05:22 Temperature 97.9 F Pulse Rate 55 L 53 L Respiratory 18 16 18 Rate Blood Pressure 174/76 158/95 155/76 O2 Sat by Pulse 98 Oximetry Medical Decision Making - Medical Decision Making Was pt. sent in by a medical professional or institution ([facility], PANTOGRAPHER, urgent care, hospital, or group home...) When possible be specific @ -No Did you speak to anyone other than the patient for history (EMS, parent, family, police, friend...)? What history was obtained from this source @ -No Did you review nursing and triage notes (agree or disagree)? Why? @ -I reviewed and agree with nursing and triage notes Were old charts reviewed (outside hosp., previous admission, EMS record, old EKG, old radiological studies, urgent care reports/EKG's, group home records)? Report findings @ -Reviewed recent heart cath with stenting of LAD and RCA Differential Diagnosis (chest pain, altered mental status, abdominal pain women, abdominal pain men, vaginal bleeding, weakness, fever, dyspnea, syncope, headache, dizziness, GI bleed, back pain, seizure, CVA, palpatations, mental health, musculoskeletal)? @ Muscle strain, anginal equivalent, CVA EKG interpreted by me (3pts min.). @ -EKG: Sinus bradycardia rate of 52, PA interval 196, QRS duration 100, QTC [address] segment elevation. X-rays interpreted by me (1pt min.). @ -None done CT interpreted by me (1pt min.). @ -None done U/S interpreted by me (1pt. min.). @ -None done What testing was considered but not performed or refused? (CT, X-rays, U/S, l abs)? Why? @ -None What meds were considered but not given or refused? Why? @ -None Did you discuss the management of the patient with other professionals (professionals i.e. [facility], PANTOGRAPHER, lab, RT, psych nurse, social media director, seed packer, teacher, senior administrative services officer, rifle case repairer)? Give summary @ -Dr. Villegas Was smoking cessation discussed for >3mins.? @ -No Was critical care preformed (if so, how long)? @ -No Were there social determinants of health that impacted care today? How? (Homelessness, low income, unemployed, alcoholism, drug addiction, transportation, low edu. Level, literacy, decrease access to med. care, residential, rehab)? @ -No Was there de-escalation of care discussed even if they declined (Discuss DNR or withdrawal of care, Hospice)? DNR status @ -No What co-morbidities impacted this encounter? (DM, HTN, Smoking, COPD, CAD, Cancer, CVA, ARF, Chemo, Hep., AIDS, mental health diagnosis, sleep apnea, morbid obesity)? @ -[Coronary artery disease Was patient admitted / discharged? Hospital course, mention meds given and route, prescriptions, significant lab abnormalities, going to OR and other pertinent info. @ -72-year-old male presenting with left arm pain which is been present for several hours prior to arrival. Patient does admit to fairly heavy exertion o eric the past 2 days. He has no central chest pain. No vomiting. No diaphoresis. He had recent stents placed in the LAD and RCA within the last 2 weeks. Patient's has EKG showing sinus bradycardia without ST segment elevation. Chest x-ray is interpreted as left lower lobe pneumonia. The patien t is not having any pneumonia symptoms, no fever, no cough, no leukocytosis. Head CT was obtained due to the fact that the patient complained of some numbness in the left arm as well. This was negative for intracranial hemorrhage or mass effect, no acute findings. Patient CBC and CMP are unremarkable. He has a troponin of 0.058. This may be from recent heart cath but cannot exclude ischemia, patient started on heparin will be admitted for stroke or cardiac enzymes, telemetry, cardiology consultation. Undiagnosed new problem with uncertain prognosis? @ -No Drug Therapy requiring intensive monitoring for toxicity (Heparin, Nitro, Ins ulin, Cardizem)? @ -No Were any procedures done? @ -No Diagnosis/symptom? @ -[Anginal equivalent, troponin elevation, rule out ACS Acute, or Chronic, or Acute on Chronic? @ -Acute Uncomplicated (without systemic symptoms) or Complicated (systemic symptoms)? @ -default Side effects of treatment? @ -No Exacerbation, Progression, or Severe Exacerbation? @ -No Poses a threat to life or bodily function? How? (Chest pain, USA, ME, pneumonia, PE, COPD, DKA, ARF, appy, cholecystitis, CVA, Diverticulitis, Homicidal, Suicidal, threat to staff... and all critical care pts) @ -Yes, ACS - Lab Data Result diagrams: 09/13/22 03:42 09/13/22 03:42 Lab Results 09/13/22 09/13/22 09/13/22 Range/Units 03:42 03:42 03:42 WBC 9.1 (3.8-10.6) k/uL RBC 4.53 (4.30-5.90) m/uL Hgb 14.3 (13.0-17.5) gm/dL Hct 42.6 (39.0-53.0) % MCV 94.0 (80.0-100.0) fL MCH 31.5 (25.0-35.0) pg MCHC 33.5 (31.0-37.0) g/dL RDW 12.6 (11.5-15.5) % Plt Count 154 (150-450) k/uL MPV 7.8 Neutrophils % 74 % Lymphocytes % 11 % Monocytes % 9 % Eosinophils % 4 % Basophils % 0 % Neutrophils # 6.8 (1.3-7.7) k/uL Lymphocytes # 1.0 (1.0-4.8) k/uL Monocytes # 0.8 (0-1.0) k/uL Eosinophils # 0.3 (0-0.7) k/uL Basophils # 0.0 (0-0.2) k/uL PT 10.7 (9.0-12.0) sec INR 1.0 (<1.2) APTT 26.7 (22.0-30.0) sec Sodium 138 (137-145) mmol/L Potassium 4.4 (3.5-5.1) mmol/L Chloride 107 (98-107) mmol/L Carbon Dioxide 20 L (22-30) mmol/L Anion Gap 11 mmol/L BUN 30 H (9-20) mg/dL Creatinine 1.11 (0.66-1.25) mg/dL Est GFR (CKD-EPI)AfAm 75 (>60 ml/min/1.73 sqM) Est GFR (CKD-EPI)NonAf 65 (>60 ml/min/1.73 sqM) Glucose 103 H (74-99) mg/dL Calcium 8.9 (8.4-10.2) mg/dL Magnesium 2.2 (1.6-2.3) mg/dL Total Bilirubin 0.6 (0.2-1.3) mg/dL AST 26 (17-59) U/L ALT 26 (4-49) U/L Alkaline Phosphatase 80 (38-126) U/L Troponin I (0.000-0.034) ng/mL Total Protein 7.0 (6.3-8.2) g/dL Albumin 4.0 (3.5-5.0) g/dL 09/13/22 Range/Units 03:42 WBC (3.8-10.6) k/uL RBC (4.30-5.90) m/uL Hgb (13.0-17.5) gm/dL Hct (39.0-53.0) % MCV (80.0-100.0) fL MCH (25.0-35.0) pg MCHC (31.0-37.0) g/dL RDW (11.5-15.5) % Plt Count (150-450) k/uL MPV Neutrophils % % Lymphocytes % % Monocytes % % Eosinophils % % Basophils % % Neutrophils # (1.3-7.7) k/uL Lymphocytes # (1.0-4.8) k/uL Monocytes # (0-1.0) k/uL Eosinophils # (0-0.7) k/uL Basophils # (0-0.2) k/uL PT (9.0-12.0) sec INR (<1.2) APTT (22.0-30.0) sec Sodium (137-145) mmol/L Potassium (3.5-5.1) mmol/L Chloride (98-107) mmol/L Carbon Dioxide (22-30) mmol/L Anion Gap mmol/L BUN (9-20) mg/dL Creatinine (0.66-1.25) mg/dL Est GFR (CKD-EPI)AfAm (>60 ml/min/1.73 sqM) Est GFR (CKD-EPI)NonAf (>60 ml/min/1.73 sqM) Glucose (74-99) mg/dL Calcium (8.4-10.2) mg/dL Magnesium (1.6-2.3) mg/dL Total Bilirubin (0.2-1.3) mg/dL AST (17-59) U/L ALT (4-49) U/L Alkaline Phosphatase (38-126) U/L Troponin I 0.058 H* (0.000-0.034) ng/mL Total Protein (6.3-8.2) g/dL Albumin (3.5-5.0) g/dL Disposition Clinical Impression: Anginal equivalent, Elevated troponin Disposition: ADMITTED IP TO THIS [facility] Condition: Stable Is patient prescribed a controlled substance at d/c from ED?: No Referrals: Abdias Villegas MD [Primary Care Provider] - 1-2 days Time of Disposition: 06:14
[2022-09-13 03:53] LABS: Basophils % (A) 0 %; Eosinophils # (A) 0.3 k/uL (0-0.7); Eosinophils % (A) 4 %; HCT 42.6 % (39.0-53.0); HGB 14.3 gm/dL (13.0-17.5); Lymphocytes % (A) 11 %; MCH 31.5 pg (25.0-35.0); MCHC 33.5 g/dL (31.0-37.0); Mean Platelet Volume 7.8; Monocytes # (A) 0.8 k/uL (0-1.0); Monocytes % (A) 9 %; Neutrophils # (A) 6.8 k/uL (1.3-7.7); Neutrophils % (A) 74 %; Platelet Count 154 k/uL (150-450); RBC 4.53 m/uL (4.30-5.90); RDW 12.6 % (11.5-15.5); WBC 9.1 k/uL (3.8-10.6)
[2022-09-13 04:05] LABS: Partial Thromboplastin Time 26.7 sec (22.0-30.0); Prothrombin Time 10.7 sec (9.0-12.0)
[2022-09-13 04:07] LABS: ALT 26 U/L (4-49); AST 26 U/L (17-59); African American GFR (CKD) 75 (>60 ml/min/1.73 sqM); Alkaline Phosphatase 80 U/L (38-126); Anion Gap 11 mmol/L; Blood Urea Nitrogen 30 mg/dL (9-20); Calcium 8.9 mg/dL (8.4-10.2); Carbon Dioxide 20 mmol/L (22-30); Chloride 107 mmol/L (98-107); Glucose 103 mg/dL (74-99); Magnesium 2.2 mg/dL (1.6-2.3); Non-African American GFR(CKD) 65 (>60 ml/min/1.73 sqM); Potassium 4.4 mmol/L (3.5-5.1); Sodium 138 mmol/L (137-145); Total Bilirubin 0.6 mg/dL (0.2-1.3)
[2022-09-13] MEDS ORDERED: HEPARIN SODIUM 1,000 UN/ML (10ML VL) IV ONE (04:33)
[2022-09-13] MEDS ORDERED: HEPARIN SODIUM 1,000 UN/ML (10ML VL) IV PRN (04:33)
[2022-09-13] MEDS ORDERED: HEPARIN SOD,PORK IN 0.45% NACL 25,000 UNIT in 0.45% NACL 1 250ML.BAG IV SCH (04:45)
--- NOTE | 2022-09-13 05:29 | CT ---
EXAM: CT Head Without Intravenous Contrast CLINICAL HISTORY: ITS.REASON CT Reason: left arm numbness TECHNIQUE: Axial computed tomography images of the head/brain without intravenous contrast. CTDI is 57.4 mGy and DLP is 1133.3 mGy-cm. This CT exam was performed using one or more of the following dose reduction techniques: automated exposure control, adjustment of the mA and/or kV according to patient size, and/or use of iterative reconstruction technique. COMPARISON: No relevant prior studies available. FINDINGS: Brain: Confluent hypodense changes are seen within the periventricular and deep white matter. No hemorrhage. Ventricles: Unremarkable. No ventriculomegaly. Bones/joints: Unremarkable. No acute fracture. Soft tissues: Unremarkable. Sinuses: Unremarkable as visualized. No acute sinusitis. Mastoid air cells: Unremarkable as visualized. No mastoid effusion. IMPRESSION: Chronic small vessel ischemic change and no acute intracranial findings.
--- NOTE | 2022-09-13 05:31 | XR ---
EXAM: XR Chest, 2 Views CLINICAL HISTORY: ITS.REASON XR Reason: Chest Pain TECHNIQUE: Frontal and lateral views of the chest. COMPARISON: No relevant prior studies available. FINDINGS: Lungs: Confluent airspace opacity overlies the left lower lung. The right lung is clear. Pleural space: Unremarkable. No pneumothorax. Heart: Unremarkable. No cardiomegaly. Mediastinum: Unremarkable. Bones/joints: Degenerative changes are seen within the spine and shoulders. IMPRESSION: Left lower lobe pneumonia.
[2022-09-13] MEDS ORDERED: NALOXONE 0.4 MG/ML 1 ML VIAL IV PRN (06:12)
[2022-09-13] MEDS ORDERED: ACETAMINOPHEN TAB 325 MG TAB PO PRN (06:12)
[2022-09-13] MEDS ORDERED: ASPIRIN 81 MG PO SCH (09:00)
[2022-09-13] MEDS ORDERED: CLOPIDOGREL 75 MG TAB PO SCH (09:00)
[2022-09-13] MEDS ORDERED: ISOSORBIDE MONONITRATE ER 30 MG TAB.ER.24H PO SCH (09:30)
[2022-09-13] MEDS ORDERED: LOSARTAN 50 MG TAB PO SCH (09:30)
[2022-09-13 11:57] VITALS: RESP 16; TEMP 97.6
[2022-09-13 12:58] VITALS: BP 178/77; PULSE 56
--- NOTE | 2022-09-13 13:07 | P.CRDCN ---
History of Present Illness Consult date: 09/13/22 Reason for Consult (text): Elevated troponins recent heart catheterization History of present illness: History of present illness: This is a 72-year-old male patient of Dr. Mcdaniel with past medical history of coronary artery disease status post stenting of the LAD and RCA for dyspnea on exertion, hypertension, hyperlipidemia, tobacco abuse, history of alcohol abuse. Patient states that he has been taking all his medications as directed. He presented to the hospital due to left forearm and hand numbness. He said it started last evening. He denies having any chest pain. He does note this morning that when he stands numbness of his left arm goes away. He denies having any cough or sputum production, no lightheadedness or dizziness, no palpitations, no cough or sputum production. Patient has been started on a heparin drip EKG normal sinus rhythm with no acute ST changes Chest x-ray: Left lower lobe pneumonia CAT scan of the brain chronic small vessel ischemic changes no acute findings CBC within normal limits. INR 1. Sodium 138, potassium 4.4, BUN 30 and creatinine 1.1. Blood sugar 103. Liver function tests are normal. Magnesium 2.2. Troponin 0.058, 0.048. Home cardiac medications: Aspirin 81 mg daily, atorvastatin 40 mg at bedtime, bisoprolol 5 mg at bedtime, Plavix 75 mg daily, Imdur 30 mg daily, losartan 100 mg daily, nitro stat as needed 08/11/2022 cardiac catheterization revealed severe stenosis in the mid RCA, 60- 80% concentric lesion in the proximal LAD, mild disease of the left circumflex. Patient underwent successful stenting of the mid RCA. Plan was for Plavix and aspirin and to undergo revascularization of his LAD at a later date. 09/05 cardiac catheterization revealed calcified proximal LAD, significant disease in the proximal LAD, patent stent in the RCA with mild disease in the proximal RCA, mild disease of the circumflex. Patient underwent successful stenting of proximal LAD. Echocardiogram performed in the office on 08/05/2022 revealed normal EF, mild AR, mild TR, mild to moderate MR. Review Of Systems: At the time of my evaluation: Constitutional: No fever, no chills. No weakness, fatigue or lethargy. EENT: No headache. No dizziness. Lungs: No shortness of breath, cough, no sputum production. No wheezing. Cardiovascular: No chest pain, no lower extremity edema. No palpitations. No paroxysmal nocturnal dyspnea. No orthopnea. No lightheadedness or dizziness. No syncopal episodes. Abdominal: No abdominal pain. No nausea, vomiting. No diarrhea. No constipation. No bloody or tarry stools. Genitourinary: No dysuria.. No urinary retention. Musculoskeletal: No myalgias. No muscle weakness, no frequent falls. Numbness left forearm and hand he 72-year-old male. He is resting in bed and appears to be comfortable and in no acute distress 2/6 systolic murmur at the base Integumentary: No wounds. No rash. No unusual bruising. Neurologic: No aphasia. No facial droop. No change in mentation. No head injury. No headache. Physical examination: Gen: This is a 72-year-old male. Resting in bed appears to be comfortable VS: reviewed HEENT: Head is atraumatic, normocephalic. Pupils equal, round. Sclerae is anicteric. NECK: Supple. No JVD. . LUNGS: Clear to auscultation. No wheezes or rhonchi. No intercostal retractions. HEART: Regular rate and rhythm. No murmur. Tenderness over the left scapula ABDOMEN: Soft No tenderness. EXTREMITIES: No pedal edema. NEUROLOGICAL: Patient is awake, alert and oriented x3. Assessment: Left arm numbness does not appear to be cardiac related Acute coronary syndrome ruled out Elevated troponin most likely secondary to recent cardiac catheterization and PCI Plan: Resume patient's home cardiac medications no need to repeat echocardiogram No further cardiac workup at this time. Patient is cleared for discharge and may follow up with Dr. Mcdaniel on 09/17 as planned. Thank you kindly for this consultation. Nurse practitioner note has been reviewed, I agree with documented findings and plan of care. Patient was seen and examined. Past Medical History Past Medical History: Coronary Artery Disease (CAD), Cancer, Hypertension, Prostate Disorder Additional Past Medical History / Comment(s): colon cancer 2003-no radiation or chemo,enlarged prostate History of Any Multi-Drug Resistant Organisms: None Reported Past Surgical History: Bowel Resection, Heart Catheterization With Stent, Hernia Repair Additional Past Surgical History / Comment(s): R hemicolectomy Past Anesthesia/Blood Transfusion Reactions: No Reported Reaction Date of Last Stent Placement:: 08-11-22 Past Psychological History: No Psychological Hx Reported Smoking Status: Former smoker Past Alcohol Use History: None Reported Additional Past Alcohol Use History / Comment(s): quit smoking 28 yrs ago, smoked approx 20 years. Drinks 2 Beers daily. Past Drug Use History: None Reported - Past Family History Father Family Medical History: Congestive Heart Failure (CHF), Hypertension Brother(s) Family Medical History: Cancer, Renal Disease Sister(s) Family Medical History: Cancer Daughter(s) Family Medical History: Unable to Obtain Son(s) Family Medical History: No Reported History Medications and Allergies Home Medications Medication Instructions Recorded Confirmed Type Bisoprolol [Zebeta] 5 mg PO HS 12/15/17 09/13/22 History Aspirin EC [Ecotrin Low Dose] 81 mg PO DAILY 08/07/22 09/13/22 History Beta-Carotene [Beta Carotene] 25,000 unit PO DAILY 08/07/22 09/13/22 History Cholecalciferol [Vitamin D3 (25 50 mcg PO DAILY 08/07/22 09/13/22 History Mcg = 1000 Iu)] Cyanocobalamin (Vitamin B-12) 2,500 mcg PO DAILY 08/07/22 09/13/22 History [Vitamin B-12] Isosorbide Mononitrate ER [Imdur] 30 mg PO DAILY 08/07/22 09/13/22 History Krill/Om-3/Dha/Epa/Phospho/Ast 1 cap PO DAILY 08/07/22 09/13/22 History [Krill Oil 500 mg Softgel] Loratadine 10 mg PO DAILY 08/07/22 09/13/22 History Multivit,Calc,Min/FA/K1/Lycop 1 tab PO DAILY 08/07/22 09/13/22 History [One-A-Day Men's Complete Tab] Mv-Mn/Om3/Dha/Epa/Fish/Lut/Elsy 1 cap PO DAILY 08/07/22 09/13/22 History [Ocuvite Adult 50 Plus Softgel] Selenium 200 mcg PO DAILY 08/07/22 09/13/22 History Ubidecarenone [Co Q-10] 30 mg PO DAILY 08/07/22 09/13/22 History Zinc Gluconate [Zinc] 50 mg PO DAILY 08/07/22 09/13/22 History Atorvastatin [Lipitor] 40 mg PO HS #90 tab 08/12/22 09/13/22 Rx Clopidogrel [Plavix] 75 mg PO DAILY #90 tab 08/12/22 09/13/22 Rx Nitroglycerin Sl Tabs [Nitrostat] 0.4 mg SUBLINGUAL Q5M PRN #25 tab 08/12/22 09/13/22 Rx Losartan Potassium [Cozaar] 100 mg PO DAILY 09/13/22 09/13/22 History Allergies Allergy/AdvReac Type Severity Reaction Status Date / Time No Known Allergies Allergy Verified 09/13/22 03:05 Physical Exam Vitals: Vital Signs Temp Pulse Pulse Resp BP BP Pulse Ox 09/13/22 06:48 98.4 F 55 L 18 157/71 99 09/13/22 05:22 53 L 18 155/76 09/13/22 04:32 16 158/95 09/13/22 03:05 97.9 F 55 L 18 174/76 98 Intake and Output 09/12/22 09/13/22 09/13/22 22:59 06:59 14:59 Other: Weight 90.265 kg Results 09/13/22 03:42 09/13/22 03:42 Cardiac Enzymes 09/13/22 09/13/22 09/13/22 Range/Units 03:42 03:42 05:51 AST 26 (17-59) U/L Troponin I 0.058 H* 0.048 H* (0.000-0.034) ng/mL Coagulation 09/13/22 Range/Units 03:42 PT 10.7 (9.0-12.0) sec APTT 26.7 (22.0-30.0) sec CBC 09/13/22 Range/Units 03:42 WBC 9.1 (3.8-10.6) k/uL RBC 4.53 (4.30-5.90) m/uL Hgb 14.3 (13.0-17.5) gm/dL Hct 42.6 (39.0-53.0) % Plt Count 154 (150-450) k/uL Comprehensive Metabolic Panel 09/13/22 Range/Units 03:42 Sodium 138 (137-145) mmol/L Potassium 4.4 (3.5-5.1) mmol/L Chloride 107 (98-107) mmol/L Carbon Dioxide 20 L (22-30) mmol/L BUN 30 H (9-20) mg/dL Creatinine 1.11 (0.66-1.25) mg/dL Glucose 103 H (74-99) mg/dL Calcium 8.9 (8.4-10.2) mg/dL AST 26 (17-59) U/L ALT 26 (4-49) U/L Alkaline Phosphatase 80 (38-126) U/L Total Protein 7.0 (6.3-8.2) g/dL Albumin 4.0 (3.5-5.0) g/dL Current Medications Generic Name Dose Route Start Last Admin Trade Name Freq PRN Reason Stop Dose Admin Acetaminophen 650 mg 09/13/22 06:12 Acetaminophen Tab 325 Mg Tab PO Q6HR PRN Mild Pain or Fever > 100.5 Aspirin 81 mg 09/13/22 09:00 Aspirin 81 Mg PO DAILY [facility] Atorvastatin Calcium 40 mg 09/13/22 21:00 Atorvastatin 40 Mg Tab PO HS [facility] Clopidogrel Bisulfate 75 mg 09/13/22 09:00 Clopidogrel 75 Mg Tab PO DAILY [facility] Heparin Sodium (Porcine) 0 unit 09/13/22 04:33 Heparin Sodium 1,000 Un/Ml (10ml Vl) IV PER PROTOCOL PRN Low PTT Protocol Heparin Sodium/Sodium Chloride 250 mls @ 9.994 mls/hr 09/13/22 04:45 09/13/22 05:39 25,000 unit/ Sodium Chloride IV 11.072 units/kg/hr .Q24H KG 9.994 mls/hr Administration Protocol 11.072 UNITS/KG/HR Naloxone HCl 0.2 mg 09/13/22 06:12 Naloxone 0.4 Mg/Ml 1 Ml Vial IV Q2M PRN Opioid Reversal Intake and Output 09/12/22 09/13/22 09/13/22 22:59 06:59 14:59 Other: Weight 90.265 kg 09/13/22 03:42 09/13/22 03:42
[2022-09-13] MEDS ORDERED: NITROGLYCERIN SL TABS 0.4 MG TAB SUBLINGUAL PRN (13:29)
[2022-09-13] MEDS ORDERED: AZITHROMYCIN 500 MG TAB PO SCH (13:45)
[2022-09-13] MEDS ORDERED: BISOPROLOL 5 MG TAB PO SCH (21:00)
[2022-09-13] MEDS ORDERED: ATORVASTATIN 40 MG TAB PO SCH (21:00)
[2022-09-14] MEDS ORDERED: BETA CAROTENE 25000 UNIT PO SCH (09:00)
[2022-09-14] MEDS ORDERED: KRILL PO SCH (09:00)
[2022-09-14] MEDS ORDERED: ZINC SULFATE 220 MG CAP PO SCH (09:00)
[2022-09-14] MEDS ORDERED: EPA PO SCH (09:00)
[2022-09-14] MEDS ORDERED: MULTIVITAMINS, THERA 1 EACH TAB PO SCH (09:00)
[2022-09-14] MEDS ORDERED: PHOSPHO PO SCH (09:00)
[2022-09-14] MEDS ORDERED: AST PO SCH (09:00)
[2022-09-14] MEDS ORDERED: CYANOCOBALAMIN 500 MCG TAB PO SCH (09:00)
[2022-09-14] MEDS ORDERED: CHOLECALCIFEROL 25 MCG (1000 IU) TABLET PO SCH (09:00)
[2022-09-14] MEDS ORDERED: LORATADINE 10 MG TAB PO SCH (09:00)
[2022-09-14] MEDS ORDERED: LOSARTAN 50 MG TAB PO SCH (09:00)
[2022-09-14] MEDS ORDERED: [UNRECOGNIZED DRUG - OTHER] PO SCH (09:00)
[2022-09-14] MEDS ORDERED: DHA PO SCH (09:00)
[2022-09-14] MEDS ORDERED: NON FORMULARY DRUG (Ubidecarenone [Co Q-10] 30 MG Capsule) PO SCH (09:00)
[2022-09-14] MEDS ORDERED: NON FORMULARY DRUG (Selenium [Selenium] 100 MCG Tablet) PO SCH (09:00)
--- NOTE | 2022-09-20 00:48 | P.HPIM ---
History of Present Illness H&P Date: 09/13/22 Chief Complaint: Left arm pain. History of physical and discharge summary. HISTORY OF PRESENT ILLNESS: This is a 72-year-old male one of my patient with a previous medical history significant for hypertension and hypertensive vascular disease, hyperlipidemia, recent diagnosis of CAD post-PCI of the RCA 08/11/2022 and the last stent was placed in the LAD in 09/05/[address] Mcdaniel, he underwent echocardiogram that showed normal ejection fraction, with mild AI mild TR and moderate MR. Patient was doing a lot over the last few days, he was moving ladders around, he was pulling a freezer around as well, and he developed to have significant numbness in the left upper extremity he was worried about his heart so he ended up coming to the ER for evaluation was seen in emergency department at [facility], computed tomography scan of the brain did not show evidence of acute of normalities of small vessel disease, also chest x-ray surprisingly showed left lower lobe pneumonia, patient has no symptoms of coughing or shortness breath, he was feeling somewhat congested, cardiac enzymes were slightly elevated due to recent heart catheterization, was started on heparin drip, cardiology evaluation, patient was seen by Dr. Hunter he was recommended for the patient for discharge: Continue current home medication and follow up with Dr. Mcdaniel as scheduled this coming Thursday. REVIEW OF SYSTEMS: Constitutional: No documented fever, no chills, no night sweats. No weight change. No weakness, fatigue or lethargy. No daytime sleepiness. EENT: No headache. No blurred vision or double vision, no loss of vision. No loss of Hearing, no ringing in the ears, no dizziness. No nasal drainage or congestion. No epistaxis. No sore throat. Lungs: No shortness of breath, no cough, no sputum production. No wheezing. Reports dyspnea with activity. Cardiovascular: No chest pain, no lower extremity edema. No palpitations. No paroxysmal nocturnal dyspnea. No orthopnea. No lightheadedness or dizziness. No syncopal episodes. Abdominal: Reports abdominal pain. No nausea, vomiting. No diarrhea. No constipation. No bloody or tarry stools reports loss of appetite. Genitourinary: No dysuria, increased frequency, urgency. No urinary retention. Musculoskeletal: No myalgias. No muscle weakness, no gait dysfunction, no frequent falls. No back pain. No neck pain. Integumentary: No wounds, no lesions. No rash or pruritus. No unusual bruising. No change in hair or nails. Neurologic: No aphasia. No facial droop. No change in mentation. No head injury. No headache. No paralysis. No paresthesia. Psychiatric: No depression. No anxiety. No mood swings. Endocrine: No abnormal blood sugars. No weight change. PAST MEDICAL HISTORY: Hypertension and hypertensive cardiovascular disease. Hyperlipidemia. CAD post-PCI of the RCA and LAD. Mild AI Mild TR Moderate MR BPH Colon cancer status post partial colectomy. PAST SURGICAL HISTORY: Right hemicolectomy in 2004 Hernia repair Colonoscopy 10/2018 Cardiac catheterization with PCI of the RCA 08/11/2022 PCI LAD 09/05/2022 SOCIAL HISTORY: Patient has history of smoking and quit greater than 20 years ago. No alcohol abuse or illicit drug use. FAMILY HISTORY: Father at age 82 from heart failure and hypertension. Mother at age 94 with dementia. Patient has 4 brothers one with Hodgkin's lymphoma in one with kidney disease. Patient has one sister from head and neck cancer. Patient has one son with no major medical problems. PHYSICAL EXAMINATION: General: 72-year-old male sitting up in bed in no apparent distress HEENT: Head is atraumatic, normocephalic, pupils were equal round reactive to light and recommendation, extraocular muscle movement were intact, sclera nonicteric, conjunctivae were pale, mucous membranes of the mouth are somewhat dry. Neck: Supple, no JVP, normal carotid upstroke bilaterally, no lymphadenopathy. Chest: Decreased breath sounds at the bases, few rhonchi, no expiratort wheezes, no chest wall tenderness, no intercostal retractions. Heart: First heart sound is normal, second heart sounds normal there is JM 2/6 located at the left sternal border Abdomen: Soft, nontender, nondistended, positive bowel sounds. Extremities: There is no edema no calf tenderness DP +2 bilaterally. Neurologic examination: Patient is awake alert and oriented X 3 cranial nerves II-12 appear grossly intact, muscle power were 5 out of 5 in upper extremities and 5 out of 5 in bilateral lower extremities, deep tendon reflexes normal bilaterally. ASSESSMENT AND PLAN: 1. Left arm pain/numbness likely related to radiculopathy due to degenerative disc disease of the cervical spine we'll follow as an outpatient. 2. Elevated troponin likely related to recent left heart catheterization with PCI of the RCA and LAD. Patient has been ruled out for ACS. 3. Left lower lobe pneumonia likely community acquired pneumonia. Patient will be started on Rocephin 1 g IV piggyback 1 followed by Zithromax 500 mg 1 followed by Z-Andrez. Urine Legionella antigen will be obtained. 4. Hypertension and hypertensive cardiovascular disease. Continue losartan 100 mg once every day as well as bisoprolol 5 mg daily monitor the patient blood pressure very closely. 5. Mixed hyperlipidemia. Continue atorvastatin 40 mg daily, mitral, keep LDL 55. 6. CAD post-PCI of the RCA and LAD. Continue aspirin 81 mg once every day, Pl avix 75 mg once every day, bisoprolol 5 mg daily, losartan 100 mg once every day, as well as isosorbide mononitrate 30 mg once every day. Follow up with Dr. Mcdaniel on Thursday. 7. BPH. Stable. 8. History of colon cancer the past status post partial colectomy. 9. Observation. 10. Full code. Past Medical History Past Medical History: Coronary Artery Disease (CAD), Cancer, Hypertension, Prostate Disorder Additional Past Medical History / Comment(s): colon cancer 2003-no radiation or chemo,enlarged prostate History of Any Multi-Drug Resistant Organisms: None Reported Past Surgical History: Bowel Resection, Heart Catheterization With Stent, Hernia Repair Additional Past Surgical History / Comment(s): R hemicolectomy Past Anesthesia/Blood Transfusion Reactions: No Reported Reaction Date of Last Stent Placement:: 08-11-22 Past Psychological History: No Psychological Hx Reported Smoking Status: Former smoker Past Alcohol Use History: None Reported Additional Past Alcohol Use History / Comment(s): quit smoking 28 yrs ago, smoked approx 20 years. Drinks 2 Beers daily. Past Drug Use History: None Reported - Past Family History Father Family Medical History: Congestive Heart Failure (CHF), Hypertension Brother(s) Family Medical History: Cancer, Renal Disease Sister(s) Family Medical History: Cancer Daughter(s) Family Medical History: Unable to Obtain Son(s) Family Medical History: No Reported History Medications and Allergies Home Medications Medication Instructions Recorded Confirmed Type Bisoprolol [Zebeta] 5 mg PO HS 12/15/17 09/18/22 History Aspirin EC [Ecotrin Low Dose] 81 mg PO DAILY 08/07/22 09/18/22 History Beta-Carotene [Beta Carotene] 25,000 unit PO DAILY 08/07/22 09/18/22 History Cholecalciferol [Vitamin D3 (25 50 mcg PO DAILY 08/07/22 09/18/22 History Mcg = 1000 Iu)] Cyanocobalamin (Vitamin B-12) 2,500 mcg PO DAILY 08/07/22 09/18/22 History [Vitamin B-12] Isosorbide Mononitrate ER [Imdur] 30 mg PO DAILY 08/07/22 09/18/22 History Krill/Om-3/Dha/Epa/Phospho/Ast 1 cap PO DAILY 08/07/22 09/18/22 History [Krill Oil 500 mg Softgel] Loratadine 10 mg PO DAILY 08/07/22 09/18/22 History Multivit,Calc,Min/FA/K1/Lycop 1 tab PO DAILY 08/07/22 09/18/22 History [One-A-Day Men's Complete Tab] Mv-Mn/Om3/Dha/Epa/Fish/Lut/Elsy 1 cap PO DAILY 08/07/22 09/18/22 History [Ocuvite Adult 50 Plus Softgel] Selenium 200 mcg PO DAILY 08/07/22 09/18/22 History Ubidecarenone [Co Q-10] 30 mg PO DAILY 08/07/22 09/18/22 History Zinc Gluconate [Zinc] 50 mg PO DAILY 08/07/22 09/18/22 History Atorvastatin [Lipitor] 40 mg PO HS #90 tab 08/12/22 09/18/22 Rx Clopidogrel [Plavix] 75 mg PO DAILY #90 tab 08/12/22 09/18/22 Rx Losartan Potassium [Cozaar] 100 mg PO DAILY 09/13/22 09/18/22 History Nitroglycerin Sl Tabs [Nitrostat] 0.4 mg SL Q5M PRN 09/18/22 09/18/22 History Allergies Allergy/AdvReac Type Severity Reaction Status Date / Time No Known Allergies Allergy Verified 09/18/22 11:10 Physical Exam Vitals: Vital Signs Temp Pulse Pulse Resp BP BP Pulse Ox 09/13/22 12:00 56 L 16 178/77 98 07/22/23 08:00 97.6 F 54 L 16 158/67 98 09/13/22 06:48 98.4 F 55 L 18 157/71 99 09/13/22 05:22 53 L 18 155/76 09/13/22 04:32 16 158/95 09/13/22 03:05 97.9 F 55 L 18 174/76 98 Intake and Output 09/12/22 09/13/22 09/13/22 22:59 06:59 14:59 Other: Weight 90.265 kg Results CBC & Chem 7: 09/13/22 03:42 09/13/22 03:42 Labs: Abnormal Lab Results - Last 24 Hours (Table) 09/13/22 09/13/22 09/13/22 Range/Units 03:42 03:42 05:51 APTT (22.0-30.0) sec Carbon Dioxide 20 L (22-30) mmol/L BUN 30 H (9-20) mg/dL Glucose 103 H (74-99) mg/dL Troponin I 0.058 H* 0.048 H* (0.000-0.034) ng/mL 09/13/22 Range/Units 11:16 APTT 52.9 H (22.0-30.0) sec Carbon Dioxide (22-30) mmol/L BUN (9-20) mg/dL Glucose (74-99) mg/dL Troponin I (0.000-0.034) ng/mL
== END 2022-09-13 15:41 | disposition home or self-care (01) ==
LOC: EC 03:02 → 3SCARD 06:12
PROVIDERS: ADMIT Internal Medicine; ATTEND Internal Medicine
DX: R77.8 Other specified abnormalities of plasma proteins (principal); R06.00 Dyspnea, unspecified; Z95.5 Presence of coronary angioplasty implant and graft; I10 Essential (primary) hypertension; E78.5 Hyperlipidemia, unspecified; R20.0 Anesthesia of skin; F10.11 Alcohol abuse, in remission; J18.9 Pneumonia, unspecified organism; I67.89 Other cerebrovascular disease; Z85.038 Personal history of other malignant neoplasm of large intestine; Z90.49 Acquired absence of other specified parts of digestive tract; Z98.890 Other specified postprocedural states; Z87.891 Personal history of nicotine dependence; Z82.49 Family history of ischemic heart disease and other diseases of the circulatory system; Z84.1 Family history of disorders of kidney and ureter; Z80.9 Family history of malignant neoplasm, unspecified; Z79.82 Long term (current) use of aspirin; Z79.02 Long term (current) use of antithrombotics/antiplatelets; Z79.899 Other long term (current) drug therapy
CPT/HCPCS: 96376; 96365; 99285; 36415; 93005; 80053; 87449; 83735; 84484; 85025; 85610; 85730; 84145; 71046; 70450; G0378; J0696; J1644 ×2

== ENCOUNTER 2022-09-18 08:08 | Inpatient (IN) | payer MEDICARE ==
[2022-09-18] MEDS ORDERED: MORPHINE SULFATE 4 MG/ML SYRINGE IV STA (08:32)
--- NOTE | 2022-09-18 08:46 | ED ---
General Adult HPI - General Source: patient, family (spouse), RN notes reviewed Mode of arrival: ambulatory <Dena Gutierrez - Last Filed: 09/18/22 12:20> <Raffi Mtz - Last Filed: 09/18/22 15:42> - General Chief complaint: Extremity Injury, Upper Stated complaint: R Arm Swollen, no injury Time Seen by Provider: 09/18/22 08:20 - History of Present Illness Initial comments: Patient is a 72-year-old male presenting to the emergency room with his with concerns regarding pain and swelling to the right arm. He has had pain since yesterday which began in the wrist region and has slowly radiated outward with increase in swelling throughout the day yesterday. The pain became severe enough to wake him during the night. He reports similar symptoms to his left arm prior to recent antibiotics for pneumonia but denies any swelling. He did undergo a cardiac catheterization on 09/05/2022 with a right wrist radial a pproach. He reports that he followed his lifting instructions/restrictions post intervention. He has taken Tylenol for pain without any relief and symptom. He does report that due to this pain and swelling his range of motion to his wrist and hand is impaired. He reports pain in the shoulder region as well without any swelling. Range of motion to the shoulder is normal. He denies any trauma. He re ports that his right hand/fingers have been no trauma throughout the morning. He denies any wounds, redness, fevers or chills. He denies any chest pain, shortness of breath, abdominal pain, nausea, vomiting, altered mental status or confusion. In addition to his CAD with recent stenting is a past medical history significant for hypertension, colon cancer, and prostate enlargement. (Dena López) - Related Data Home Medications Medication Instructions Recorded Confirmed Bisoprolol [Zebeta] 5 mg PO HS 12/15/17 09/18/22 Aspirin EC [Ecotrin Low Dose] 81 mg PO DAILY 08/07/22 09/18/22 Beta-Carotene [Beta Carotene] 25,000 unit PO DAILY 08/07/22 09/18/22 Cholecalciferol [Vitamin D3 (25 50 mcg PO DAILY 08/07/22 09/18/22 Mcg = 1000 Iu)] Cyanocobalamin (Vitamin B-12) 2,500 mcg PO DAILY 08/07/22 09/18/22 [Vitamin B-12] Isosorbide Mononitrate ER [Imdur] 30 mg PO DAILY 08/07/22 09/18/22 Krill/Om-3/Dha/Epa/Phospho/Ast 1 cap PO DAILY 08/07/22 09/18/22 [Krill Oil 500 mg Softgel] Loratadine 10 mg PO DAILY 08/07/22 09/18/22 Multivit,Calc,Min/FA/K1/Lycop 1 tab PO DAILY 08/07/22 09/18/22 [One-A-Day Men's Complete Tab] Mv-Mn/Om3/Dha/Epa/Fish/Lut/Elsy 1 cap PO DAILY 08/07/22 09/18/22 [Ocuvite Adult 50 Plus Softgel] Selenium 200 mcg PO DAILY 08/07/22 09/18/22 Ubidecarenone [Co Q-10] 30 mg PO DAILY 08/07/22 09/18/22 Zinc Gluconate [Zinc] 50 mg PO DAILY 08/07/22 09/18/22 Losartan Potassium [Cozaar] 100 mg PO DAILY 09/13/22 09/18/22 Nitroglycerin Sl Tabs [Nitrostat] 0.4 mg SL Q5M PRN 09/18/22 09/18/22 Previous Rx's Medication Instructions Recorded Atorvastatin [Lipitor] 40 mg PO HS #90 tab 08/12/22 Clopidogrel [Plavix] 75 mg PO DAILY #90 tab 08/12/22 Allergies Allergy/AdvReac Type Severity Reaction Status Date / Time No Known Allergies Allergy Verified 09/18/22 11:10 Review of Systems ROS Other: All systems not noted in ROS Statement are negative. <Dena Gutierrez - Last Filed: 09/18/22 12:20> ROS Other: All systems not noted in ROS Statement are negative. <Raffi Mtz - Last Filed: 09/18/22 15:42> ROS Statement: Those systems with pertinent positive or pertinent negative responses have been documented in the HPI. Past Medical History Past Medical History: Coronary Artery Disease (CAD), Cancer, Hypertension, Prostate Disorder Additional Past Medical History / Comment(s): colon cancer 2003-no radiation or chemo,enlarged prostate History of Any Multi-Drug Resistant Organisms: None Reported Past Surgical History: Bowel Resection, Heart Catheterization With Stent, Hernia Repair Additional Past Surgical History / Comment(s): R hemicolectomy Past Anesthesia/Blood Transfusion Reactions: No Reported Reaction Date of Last Stent Placement:: 08-11-22 Past Psychological History: No Psychological Hx Reported Smoking Status: Former smoker Past Alcohol Use History: None Reported Past Drug Use History: None Reported - Past Family History Father Family Medical History: Congestive Heart Failure (CHF), Hypertension Brother(s) Family Medical History: Cancer, Renal Disease Sister(s) Family Medical History: Cancer Daughter(s) Family Medical History: Unable to Obtain Son(s) Family Medical History: No Reported History <Dena Gutierrez - Last Filed: 09/18/22 12:20> General Exam Limitations: no limitations General appearance: alert, in no apparent distress Head exam: Present: atraumatic, normocephalic, normal inspection Eye exam: Present: normal appearance, PERRL, EOMI. Absent: scleral icterus, conjunctival injection, periorbital swelling ENT exam: Present: normal exam, mucous membranes moist Neck exam: Present: normal inspection, full ROM Respiratory exam: Present: normal lung sounds bilaterally. Absent: respiratory distress, wheezes, rales, rhonchi, stridor Cardiovascular Exam: Present: regular rate, normal rhythm, normal heart sounds. Absent: systolic murmur, diastolic murmur, rubs, gallop, clicks GI/Abdominal exam: Present: soft, normal bowel sounds. Absent: distended, tenderness, guarding, rebound, rigid Right Forearm Wrist exam: Present: tenderness, swelling. Absent: full ROM Hand Wrist exam: Present: tenderness, swelling. Absent: full ROM Vascular: Present: radial pulse. Absent: vascular compromise Back exam: Present: normal inspection, full ROM Neurological exam: Present: alert, oriented X3, CN II-XII intact Psychiatric exam: Present: normal affect, normal mood Skin exam: Present: other (Ecchymosis noted to the antecubital region of the right arm) <Dena Gutierrez - Last Filed: 09/18/22 12:20> Course Vital Signs 09/18/22 09/18/22 09/18/22 08:09 08:50 10:07 Temperature 97.6 F Pulse Rate 96 87 79 Respiratory 18 17 18 Rate Blood Pressure 178/85 152/78 152/67 O2 Sat by Pulse 95 94 L 97 Oximetry 09/18/22 09/18/22 13:06 14:12 Temperature Pulse Rate 92 Respiratory 17 17 Rate Blood Pressure 152/73 O2 Sat by Pulse 95 Oximetry Medical Decision Making - Lab Data Result diagrams: 09/18/22 08:53 09/18/22 08:53 - Radiology Data Radiology results: report reviewed, image reviewed <Dena Gutierrez - Last Filed: 09/18/22 12:20> - Lab Data Result diagrams: 09/18/22 08:53 09/18/22 08:53 <Raffi Mtz - Last Filed: 09/18/22 15:42> - Medical Decision Making Was pt. sent in by a medical professional or institution ([facility], MARRIAGE THERAPIST, urgent care, hospital, or residential...) When possible be specific @ -No Did you speak to anyone other than the patient for history (EMS, parent, family, police, friend...)? What history was obtained from this source @ -No Did you review nursing and triage notes (agree or disagree)? Why? @ -I reviewed and agree with nursing and triage notes Were old charts reviewed (outside hosp., previous admission, EMS record, old EKG, old radiological studies, urgent care reports/EKG's, residential records)? Report findings @ -Yes, laboratory studies and chest x-ray from 09/13/2022 reviewed. Differential Diagnosis (chest pain, altered mental status, abdominal pain women, abdominal pain men, vaginal bleeding, weakness, fever, dyspnea, syncope, headache, dizziness, GI bleed, back pain, seizure, CVA, palpatations, mental health, musculoskeletal)? @ -Differential Musculoskeletal Muscular strain, contusion, ligament sprain, fracture, arthritis, septic arthritis, bursitis, cellulitis, muscle spasm, nerve compression, DVT, arterial occlusion, herpes zoster, electrolyte abnormality, tumor.... This is not meant to be in all inclusive list EKG interpreted by me (3pts min.). @ -None done X-rays interpreted by me (1pt min.). @ -None done CT interpreted by me (1pt min.). @ -None done U/S interpreted by me (1pt. min.). @ -Ultrasound venous Doppler right upper extremity report per radiologist not interpreted by me: No evidence of DVT in the right upper extremity, the targeted scan along the anterior shoulder shows long head biceps tendinosis pneumonitis as well as moderate effusion of the anterior subacromial/subdeltoid bursa What testing was considered but not performed or refused? (CT, X-rays, U/S, labs)? Why? @ -None What meds were considered but not given or refused? Why? @ -None Did you discuss the management of the patient with other professionals (professionals i.e. , PA, MARRIAGE THERAPIST, lab, RT, psych nurse, nursing home social worker, kohinoor operator, teacher, chief security officer, lead case manager)? Give summary @ - Yes, spoke with Dr. Villegas patient's primary care provider regarding presentation and work and along with recommendation for admission for antibiotic therapy and further evaluation of right upper extremity swelling and leukocytosis consistent for cellulitis, bursitis versus septic arthritis. He is accepting of admission and advised consult to orthopedist and infectious disease. .Was smoking cessation discussed for >3mins.? @ -No Was critical care preformed (if so, how long)? @ -No Were there social determinants of health that impacted care today? How? ( Homelessness, low income, unemployed, alcoholism, drug addiction, transportation, low edu. Level, literacy, decrease access to med. care, fdc, rehab)? @ -No Was there de-escalation of care discussed even if they declined (Discuss DNR or withdrawal of care, Hospice)? DNR status @ -No What co-morbidities impacted this encounter? (DM, HTN, Smoking, COPD, CAD, Cancer, CVA, ARF, Chemo, Hep., AIDS, mental health diagnosis, sleep apnea, morbid obesity)? @ -Recent cardiac catheterization via right radius Was patient admitted / discharged? Hospital course, mention meds given and route, prescriptions, significant lab abnormalities, going to OR and other pertinent info. @ -72-year-old male presenting to the emergency room with his with concerns regarding pain and swelling to the right arm. He has had pain since yesterday which began in the wrist region and has slowly radiated outward with increase in swelling throughout the day yesterday. The pain became severe enough to wake him during the night. Development of numbness and tingling to right hand and fingertips earlier this morning. Similar symptoms to his left arm prior to recent antibiotics for pneumonia but denies any swelling. Limited range of motion due to swelling, good radial pulse, will proceed with workup with ultrasound venous Doppler of the right upper extremity along with CBC, CMP and coags. Will give morphine for pain and monitor response. Pain persists despite morphine will give Dilaudid. Laboratory studies reveal elevated WBC up from 9.1 to 14.2. Neutrophils elevated at 12.4, lymphocytes low 0.5, coags normal. Given amount of swelling and elevated WBCs will add lab of creatinine kinase and lactic acid. CMP with slight dehydration BUN 22 creatinine normal. Sodium level 135 remaining electrolytes normal, liver function normal. Ultrasound venous Doppler right upper extremity showed no evidence but targeted scan along the anterior shoulder shows long head biceps tendinosynoitis as well as moderate effusion of the anterior subacromial/subdeltoid bursa. Pain improved with Dilaudid. Creatine knee kinase low at 53. Lactic acid and blood cultures pending. Above findings discussed with patient and spouse. Advise recommended admission for IV antibiotics and further workup along with pain control. Will order computed tomography scan of the right upper extremity with contrast to further evaluate underlying etiology of swelling and infection. We'll begin broad-spectrum antibiotic of Ancef. Spoke with Dr. Villegas patient's primary care provider regarding the workup findings and recommendation of admission for further workup and antibiotics. He is accepting of admission and advised to disease and orthopedist; will place these admission orders. Will admit patient in stable condition to observation unit under Dr. Villegas for further evaluation and treatment of cellulitis to the right upper extremity Undiagnosed new problem with uncertain prognosis? @ -No Drug Therapy requiring intensive monitoring for toxicity (Heparin, Nitro, Insulin, Cardizem)? @ -No Were any procedures done? @ -No Diagnosis/symptom? @ -Right upper extremity cellulitis Acute, or Chronic, or Acute on Chronic? @ -Acute Uncomplicated (without systemic symptoms) or Complicated (systemic symptoms)? @ -Complicated Side effects of treatment? @ -No Exacerbation, Progression, or Severe Exacerbation? @ -No Poses a threat to life or bodily function? How? (Chest pain, [place], [place], pneumonia, PE, COPD, DKA, ARF, appy, cholecystitis, CVA, Diverticulitis, Homicidal, Suicidal, threat to staff... and all critical care pts) @ -Yes, risk for progression of infection, worsening of swelling and range of motion impairment. Case discussed with Dr. Mtz. (Dena Gutierrez) - Lab Data Lab Results 09/18/22 09/18/22 09/18/22 Range/Units 08:30 08:53 08:53 WBC 14.2 H (3.8-10.6) k/uL RBC 4.61 (4.30-5.90) m/uL Hgb 14.4 (13.0-17.5) gm/dL Hct 42.9 (39.0-53.0) % MCV 93.1 (80.0-100.0) fL MCH 31.1 (25.0-35.0) pg MCHC 33.4 (31.0-37.0) g/dL RDW 12.8 (11.5-15.5) % Plt Count 209 (150-450) k/uL MPV 7.7 Neutrophils % 87 % Lymphocytes % 4 % Monocytes % 7 % Eosinophils % 1 % Basophils % 0 % Neutrophils # 12.4 H (1.3-7.7) k/uL Lymphocytes # 0.5 L (1.0-4.8) k/uL Monocytes # 1.0 (0-1.0) k/uL Eosinophils # 0.1 (0-0.7) k/uL Basophils # 0.0 (0-0.2) k/uL PT 11.4 (9.0-12.0) sec INR 1.1 (<1.2) Sodium (137-145) mmol/L Potassium (3.5-5.1) mmol/L Chloride (98-107) mmol/L Carbon Dioxide (22-30) mmol/L Anion Gap mmol/L BUN (9-20) mg/dL Creatinine (0.66-1.25) mg/dL Est GFR (CKD-EPI)AfAm (>60 ml/min/1.73 sqM) Est GFR (CKD-EPI)NonAf (>60 ml/min/1.73 sqM) Glucose (74-99) mg/dL Calcium (8.4-10.2) mg/dL Total Bilirubin (0.2-1.3) mg/dL AST (17-59) U/L ALT (4-49) U/L Alkaline Phosphatase (38-126) U/L Creatine Kinase 53 L (55-170) U/L Total Protein (6.3-8.2) g/dL Albumin (3.5-5.0) g/dL 09/18/22 Range/Units 08:53 WBC (3.8-10.6) k/uL RBC (4.30-5.90) m/uL Hgb (13.0-17.5) gm/dL Hct (39.0-53.0) % MCV (80.0-100.0) fL MCH (25.0-35.0) pg MCHC (31.0-37.0) g/dL RDW (11.5-15.5) % Plt Count (150-450) k/uL MPV Neutrophils % % Lymphocytes % % Monocytes % % Eosinophils % % Basophils % % Neutrophils # (1.3-7.7) k/uL Lymphocytes # (1.0-4.8) k/uL Monocytes # (0-1.0) k/uL Eosinophils # (0-0.7) k/uL Basophils # (0-0.2) k/uL PT (9.0-12.0) sec INR (<1.2) Sodium 135 L (137-145) mmol/L Potassium 4.5 (3.5-5.1) mmol/L Chloride 102 (98-107) mmol/L Carbon Dioxide 23 (22-30) mmol/L Anion Gap 10 mmol/L BUN 22 H (9-20) mg/dL Creatinine 0.92 (0.66-1.25) mg/dL Est GFR (CKD-EPI)AfAm >90 (>60 ml/min/1.73 sqM) Est GFR (CKD-EPI)NonAf 82 (>60 ml/min/1.73 sqM) Glucose 136 H (74-99) mg/dL Calcium 8.8 (8.4-10.2) mg/dL Total Bilirubin 0.9 (0.2-1.3) mg/dL AST 28 (17-59) U/L ALT 18 (4-49) U/L Alkaline Phosphatase 65 (38-126) U/L Creatine Kinase (55-170) U/L Total Protein 7.2 (6.3-8.2) g/dL Albumin 3.9 (3.5-5.0) g/dL Disposition Time of Disposition: 10:30 <Dena Gutierrez - Last Filed: 09/18/22 12:20> <Raffi Mtz - Last Filed: 09/18/22 15:42> Clinical Impression: Cellulitis of right upper extremity Disposition: ADMITTED IP TO THIS HOSP Condition: Stable
[2022-09-18 09:18] LABS: Basophils % (A) 0 %; Eosinophils # (A) 0.1 k/uL (0-0.7); Eosinophils % (A) 1 %; HCT 42.9 % (39.0-53.0); HGB 14.4 gm/dL (13.0-17.5); Lymphocytes # (A) 0.5 k/uL (1.0-4.8); Lymphocytes % (A) 4 %; MCH 31.1 pg (25.0-35.0); MCHC 33.4 g/dL (31.0-37.0); MCV 93.1 fL (80.0-100.0); Mean Platelet Volume 7.7; Monocytes % (A) 7 %; Neutrophils # (A) 12.4 k/uL (1.3-7.7); Neutrophils % (A) 87 %; Platelet Count 209 k/uL (150-450); RBC 4.61 m/uL (4.30-5.90); RDW 12.8 % (11.5-15.5); WBC 14.2 k/uL (3.8-10.6)
[2022-09-18 09:25] LABS: INR 1.1 (<1.2); Prothrombin Time 11.4 sec (9.0-12.0)
[2022-09-18 09:41] LABS: ALT 18 U/L (4-49); AST 28 U/L (17-59); African American GFR (CKD) >90 (>60 ml/min/1.73 sqM); Albumin 3.9 g/dL (3.5-5.0); Alkaline Phosphatase 65 U/L (38-126); Anion Gap 10 mmol/L; Blood Urea Nitrogen 22 mg/dL (9-20); Calcium 8.8 mg/dL (8.4-10.2); Carbon Dioxide 23 mmol/L (22-30); Chloride 102 mmol/L (98-107); Glucose 136 mg/dL (74-99); Non-African American GFR(CKD) 82 (>60 ml/min/1.73 sqM); Sodium 135 mmol/L (137-145); Total Bilirubin 0.9 mg/dL (0.2-1.3); Total Protein 7.2 g/dL (6.3-8.2)
[2022-09-18 09:44] LABS: Potassium 4.5 mmol/L (3.5-5.1)
--- NOTE | 2022-09-18 10:03 | US ---
EXAMINATION TYPE: US venous doppler duplex UE RT DATE OF EXAM: 09/18/2022 COMPARISON: NONE CLINICAL INDICATION: Male, 72 years old with history of swelling numbness; swelling rt arm, most pain in at dorsal forearm, and posterior/ anterior shoulder at rotator cuff SIDE PERFORMED: Right FINDINGS: Grayscale, color doppler, spectral doppler imaging performed of the deep veins of the upper extremiti es. There is normal flow, compressibility and vascular waveforms. Right Arm: Negative for DVT Director Learning Services notes: Area of concern at anterior shoulder scanned, fluid collection noted. The provided images show some fluid along the extracapsular long biceps tendon as well as overlying m oderate effusion in the anterior subacromial/subdeltoid bursa. IMPRESSION: 1. No evidence for DVT within the right upper extremity. 2. Targeted scanning along the anterior shoulder shows long head biceps tenosynovitis as well as a mo derate effusion in the anterior subacromial/subdeltoid bursa. This could reflect a bursitis or could be reactive to underlying rotator cuff pathology.
[2022-09-18] MEDS ORDERED: HYDROmorphone 1 MG/ML 1 ML SYRINGE IVP STA (10:07)
[2022-09-18] MEDS ORDERED: Acetaminophen-Codeine 300-30mg TAB PO PRN (10:28)
[2022-09-18] MEDS ORDERED: NALOXONE 0.4 MG/ML 1 ML VIAL IV PRN (10:28)
--- NOTE | 2022-09-18 12:58 | CT ---
EXAMINATION TYPE: CT upper extremity RT w con DATE OF EXAM: 09/18/2022 COMPARISON: None HISTORY: 72-year-old male Swelling, pain, ROM impairment TECHNIQUE: CT of the entire right upper extremity with IV Contrast, patient injected with 100 ml mL o f Isovue 300. Coronal and sagittal reconstructions performed. 3-D reconstructions generated on a [employer] workstation. CT DLP: 2409.6 mGycm Automated exposure control for dose reduction was used. FINDINGS: Osteopenia. [id number] degenerative change at the AC joint with either a 6 mm fragmented spur versus loose body along the superior aspect of the AC joint. No rotator cuff muscle atrophy. No volume loss of ten don in the subacromial region. Glenohumeral joint is intact. No elbow joint effusion. Elbow articulation appears intact. Moderate to severe degenerative change first CMC joint and moderate at the triscaphe joint. Wrist articulations grossly intact. Forearm shows no evident fracture. No significant soft tissue abnormality is identified. Incidental: * Prostatomegaly measuring at least 5.7 cm wide. * Sigmoid diverticulosis. Retroaortic left renal vein. * Moderate atherosclerotic calcifications infrarenal abdominal aorta and iliac arteries. * Staple line related to prior bowel surgery along the right side of the colon. * Small hiatal hernia. * Prominent dependent atelectasis in the lungs. * Hydropic gallbladder measuring 4.6 cm wide but without any surrounding inflammation, probably due to fasting state. If right upper quadrant pain, HIDA scan can be considered. * Focal cortical protuberance medial upper pole right kidney measuring 2.5 cm, coronal image 73 and axial image 123. Unable to exclude a hypervascular mass versus lobulation. * CAD with 3 vessel coronary artery calcifications. IMPRESSION: 1. OSTEOPENIA. THERE IS MILD TO MODERATE DEGENERATIVE CHANGE AT THE AC JOINT AND MODERATE TO SEVERE A T THE BASE OF THE THUMB. NO ACUTE OSSEOUS ABNORMALITY SEEN. 2. FOCAL 2.5 CM ROUNDED LOBULATION MEDIAL UPPER POLE RIGHT KIDNEY. RECOMMEND ULTRASOUND TO EXCLUDE A MASS HERE. IF THE ULTRASOUND REMAINS INDETERMINATE, EITHER A KIDNEY MRI VERSUS THREE-MONTH FOLLOW-UP CT SHOULD BE CONSIDERED. 3. INCIDENTAL FINDINGS ABOVE.
[2022-09-18] MEDS: HYDROmorphone 1 MG/ML 1 ML SYRINGE IVP PRN ×3 (14:19→21:39)
[2022-09-18] MEDS ORDERED: VANCOMYCIN IV PER PHARMACY 1 EACH MISC MISCELLANE PRN (18:29)
[2022-09-18] MEDS ORDERED: VANCOMYCIN 1,500 MG in SODIUM CHLORIDE 0.9% 500 ML 500 ML IVPB ONE (19:00)
[2022-09-18] MEDS ORDERED: NITROGLYCERIN SL TABS 0.4 MG TAB SUBLINGUAL PRN (19:07)
--- NOTE | 2022-09-18 21:29 | P.CONS ---
History of Present Illness - Reason for Consult Consult date: 09/18/22 - History of Present Illness Patient is a 72-year-old male with a past medical history significant for coronary artery disease hypertension prostate disorder with recent admission to the hospital underwent cardiac catheterization on 09/05/2022 with right wrist radial approach presenting to the hospital with increasing pain swelling to the right wrist that has extended to the right forearm area patient describes the pain to be throbbing intensity almost 10 out of 10 in severity with associated swelling and some redness patient denies high-grade fever on presentation to hospital patient was afebrile patient did have a white count of 14.2 with a left shift kidney function was normal liver enzymes are normal CRP 7.7 patient did have a venous Doppler study of the left upper extremity no evidence of DVT gurjit rn for long head biceps tenosynovitis as well as moderate effusion in the anterior subacromial subdeltoid bursa concerning for bursitis patient also have a CT of the upper extremity mild to moderate degenerative change at the AC joint with either a 6 mm fragmented spur versus loose body along the superior aspect of the AC joint did not mention any evidence of abscess patient did receive a dose of cefazolin in the ER has been admitted to the hospital infectious disease was consulted for further management of antibiotic therapy Past Medical History Past Medical History: Coronary Artery Disease (CAD), Cancer, Hypertension, Prostate Disorder Additional Past Medical History / Comment(s): colon cancer 2003-no radiation or chemo,enlarged prostate History of Any Multi-Drug Resistant Organisms: None Reported Past Surgical History: Bowel Resection, Heart Catheterization With Stent, Hernia Repair Additional Past Surgical History / Comment(s): R hemicolectomy Past Anesthesia/Blood Transfusion Reactions: No Reported Reaction Date of Last Stent Placement:: 08-11-22 Past Psychological History: No Psychological Hx Reported Smoking Status: Former smoker Past Alcohol Use History: None Reported Past Drug Use History: None Reported - Past Family History Father Family Medical History: Congestive Heart Failure (CHF), Hypertension Brother(s) Family Medical History: Cancer, Renal Disease Sister(s) Family Medical History: Cancer Daughter(s) Family Medical History: Unable to Obtain Son(s) Family Medical History: No Reported History Medications and Allergies Home Medications Medication Instructions Recorded Confirmed Type Bisoprolol [Zebeta] 5 mg PO HS 12/15/17 09/18/22 History Aspirin EC [Ecotrin Low Dose] 81 mg PO DAILY 08/07/22 09/18/22 History Beta-Carotene [Beta Carotene] 25,000 unit PO DAILY 08/07/22 09/18/22 History Cholecalciferol [Vitamin D3 (25 50 mcg PO DAILY 08/07/22 09/18/22 History Mcg = 1000 Iu)] Cyanocobalamin (Vitamin B-12) 2,500 mcg PO DAILY 08/07/22 09/18/22 History [Vitamin B-12] Isosorbide Mononitrate ER [Imdur] 30 mg PO DAILY 08/07/22 09/18/22 History Krill/Om-3/Dha/Epa/Phospho/Ast 1 cap PO DAILY 08/07/22 09/18/22 History [Krill Oil 500 mg Softgel] Loratadine 10 mg PO DAILY 08/07/22 09/18/22 History Multivit,Calc,Min/FA/K1/Lycop 1 tab PO DAILY 08/07/22 09/18/22 History [One-A-Day Men's Complete Tab] Mv-Mn/Om3/Dha/Epa/Fish/Lut/Elsy 1 cap PO DAILY 08/07/22 09/18/22 History [Ocuvite Adult 50 Plus Softgel] Selenium 200 mcg PO DAILY 08/07/22 09/18/22 History Ubidecarenone [Co Q-10] 30 mg PO DAILY 08/07/22 09/18/22 History Zinc Gluconate [Zinc] 50 mg PO DAILY 08/07/22 09/18/22 History Atorvastatin [Lipitor] 40 mg PO HS #90 tab 08/12/22 09/18/22 Rx Clopidogrel [Plavix] 75 mg PO DAILY #90 tab 08/12/22 09/18/22 Rx Losartan Potassium [Cozaar] 100 mg PO DAILY 09/13/22 09/18/22 History Nitroglycerin Sl Tabs [Nitrostat] 0.4 mg SL Q5M PRN 09/18/22 09/18/22 History Allergies Allergy/AdvReac Type Severity Reaction Status Date / Time No Known Allergies Allergy Verified 09/18/22 11:10 Physical Exam Vitals: Vital Signs Temp Pulse Resp BP Pulse Ox 09/18/22 14:12 92 17 152/73 95 09/18/22 13:06 17 09/18/22 10:07 79 18 152/67 97 09/18/22 08:50 87 17 152/78 94 L 09/18/22 08:09 97.6 F 96 18 178/85 95 Intake and Output 09/18/22 09/18/22 09/18/22 06:59 14:59 22:59 Other: Weight 89.358 kg Results CBC & Chem 7: 09/18/22 08:53 09/18/22 08:53 Labs: Abnormal Lab Results - Last 24 Hours (Table) 09/18/22 09/18/22 09/18/22 Range/Units 08:30 08:53 08:53 WBC 14.2 H (3.8-10.6) k/uL Neutrophils # 12.4 H (1.3-7.7) k/uL Lymphocytes # 0.5 L (1.0-4.8) k/uL Sodium 135 L (137-145) mmol/L BUN 22 H (9-20) mg/dL Glucose 136 H (74-99) mg/dL Creatine Kinase 53 L (55-170) U/L Assessment and Plan Plan: 1patient presented hospital with increasing pain swelling and redness to the right upper extremity in this patient with recent hospitalization for pneumonia and prior to that the patient did have a cardiac cath to the right wrist approach with concern for cellulitis CT was negative for any abscess keeping in mind his recent hospitalization with need for for resistant gram-positive such as MRSA 2-marked the area of redness 3-vancomycin pharmacy to dose with a target trough of 15 while watching kidney function and Vanco trough closely. We will follow on clinical condition and cultures to further adjust medication if needed Thank you for this consultation we will follow the patient along with you Dictation was produced using [employer] dictation software. please excuse any grammatical, word or spelling errors. Time with Patient: Greater than 30
[2022-09-18] MEDS: CLOPIDOGREL 75 MG TAB PO SCH (21:36)
[2022-09-18] MEDS: CYANOCOBALAMIN 500 MCG TAB PO SCH (21:37)
[2022-09-18] MEDS: methylPREDNISolone SOD SUCCI 40 MG/ML 1 ML VIAL IV SCH (21:37)
[2022-09-18] MEDS: ISOSORBIDE MONONITRATE ER 30 MG TAB.ER.24H PO SCH (21:37)
[2022-09-18] MEDS: LOSARTAN 50 MG TAB PO SCH (21:37)
[2022-09-18] MEDS: ASPIRIN 81 MG PO SCH (21:38)
[2022-09-18] MEDS: BISOPROLOL 5 MG TAB PO SCH (21:38)
[2022-09-18] MEDS: ATORVASTATIN 40 MG TAB PO SCH ×2 (21:39→21:43)
[2022-09-19] MEDS: methylPREDNISolone SOD SUCCI 40 MG/ML 1 ML VIAL IV SCH ×4 (00:42→23:14)
[2022-09-19] MEDS ORDERED: VANCOMYCIN 1,500 MG in SODIUM CHLORIDE 0.9% 500 ML 500 ML IVPB SCH (06:00)
[2022-09-19] MEDS: ISOSORBIDE MONONITRATE ER 30 MG TAB.ER.24H PO SCH (07:44)
[2022-09-19] MEDS: CYANOCOBALAMIN 500 MCG TAB PO SCH (07:44)
[2022-09-19] MEDS: MULTIVITAMINS, THERA 1 EACH TAB PO SCH (07:44)
[2022-09-19] MEDS: CHOLECALCIFEROL 25 MCG (1000 IU) TABLET PO SCH (07:44)
[2022-09-19] MEDS: LORATADINE 10 MG TAB PO SCH (07:45)
[2022-09-19] MEDS: ZINC SULFATE 220 MG CAP PO SCH (07:45)
[2022-09-19] MEDS: VIT A,C & E-LUTEIN-MINERALS 1 EACH TAB PO SCH (07:45)
[2022-09-19] MEDS: LOSARTAN 50 MG TAB PO SCH (07:45)
[2022-09-19] MEDS: ENOXAPARIN 40 MG/0.4 ML SYRINGE SQ SCH (08:06)
[2022-09-19] MEDS: CLOPIDOGREL 75 MG TAB PO SCH (08:07)
[2022-09-19] MEDS: ASPIRIN 81 MG PO SCH (08:07)
[2022-09-19 08:41] LABS: Basophils # (A) 0.01 X 10*3/uL (0.00-0.10); Basophils % (A) 0.1 %; Eosinophils # (A) 0 X 10*3/uL (0.04-0.35); Eosinophils % (A) 0 %; HCT 39.3 % (39.6-50.0); Lymphocytes # (A) 0.38 X 10*3/uL (0.90-5.00); Lymphocytes % (A) 2.2 %; MCH 30.9 pg (27.0-32.0); MCHC 33.1 d/dL (32.0-37.0); MCV 93.3 FL (80.0-97.0); Mean Platelet Volume 9.9 FL (9.5-12.2); Monocytes # (A) 0.93 X 10*3/uL (0.20-1.00); Monocytes % (A) 5.3 %; NRBC Per 100 WBC 0 X 10*3/uL (0.00-0.01); Neutrophils # (A) 16.16 X 10*3/uL (1.80-7.70); Neutrophils % (A) 91.8 %; Platelet Count 184 X 10*3/uL (140-440); RBC 4.21 X 10*6/uL (4.40-5.60); WBC 17.58 X 10*3/uL (4.50-10.00)
[2022-09-19] MEDS ORDERED: PHOSPHO PO SCH (09:00)
[2022-09-19] MEDS ORDERED: BETA CAROTENE 25000 UNIT PO SCH (09:00)
[2022-09-19] MEDS ORDERED: DHA PO SCH (09:00)
[2022-09-19] MEDS ORDERED: KRILL PO SCH (09:00)
[2022-09-19] MEDS ORDERED: [UNRECOGNIZED DRUG - OTHER] PO SCH (09:00)
[2022-09-19] MEDS ORDERED: EPA PO SCH (09:00)
[2022-09-19] MEDS ORDERED: NON FORMULARY DRUG (Selenium [Selenium] 100 MCG Tablet) PO SCH (09:00)
[2022-09-19] MEDS ORDERED: NON FORMULARY DRUG (Ubidecarenone [Co Q-10] 30 MG Capsule) PO SCH (09:00)
[2022-09-19] MEDS ORDERED: AST PO SCH (09:00)
[2022-09-19 09:24] LABS: ALT 13 U/L (10-49); AST 15 U/L (14-35); Albumin 3.8 d/dL (3.8-4.9); Albumin/Globulin Ratio 1.41 Ratio (1.60-3.17); Alkaline Phosphatase 66 U/L (41-126); Carbon Dioxide 22.9 mmol/L (21.6-31.8); Chloride 100 mmol/L (96-109); Globulin 2.7 d/dL (1.6-3.3); Glucose 200 mg/dL (70-110); Potassium 4.5 mmol/L (3.5-5.5); Sodium 135 mmol/L (135-145); Total Bilirubin 0.4 mg/dL (0.3-1.2); Total Protein 6.5 d/dL (6.2-8.2)
--- NOTE | 2022-09-19 09:31 | P.CNOR ---
History of Present Illness - [facility] Consult date: 09/19/22 Requesting physician: Dena Gutierrez Consult reason: other (buritis with ROM impairment) History of present illness: patient is a 72-year-old male who presents to the emergency department with increased swelling and pain to the right upper extremity. patient was diagnosed with pneumonia in the past couple weeks for which he had been taking abx. Orthopedics was consulted due to the swelling and bursitis in RUE. Patient was seen at bedside this morning lying currently receiving IV Vanco. Patient says on September 05 he did have a stent placed and vascular went thru his right radial artery. He had another placed in July of this year in same arm. Patient says over the past several days he had increased pain and swelling to the right arm. Patient says he got to the point where he had difficult time moving his right wrist and it began to extend into his right elbow. patient says the swelling has decreased since yesterday. Patient says he is able to flex and extend his right wrist as well as right elbow and right shoulder. Patient feels that this coming the hospital this swelling has decreased and his overall symptoms are improving. Ultrasound of right upper extremity is negative for any DVT. There was some bursitis found on the CT of the right upper extremity and shoulder as well as some swelling around the biceps tendon. negative for any abscess. Patient says his pain is controlled with medication. Patient denies chest pain, fever, shortness breath, nausea, vomiting, change in vision, loss of bowel/bladder control. Past Medical History Past Medical History: Coronary Artery Disease (CAD), Cancer, Hypertension, Pros ramirez Disorder Additional Past Medical History / Comment(s): colon cancer 2003-no radiation or chemo,enlarged prostate History of Any Multi-Drug Resistant Organisms: None Reported Past Surgical History: Bowel Resection, Heart Catheterization With Stent, Hernia Repair Additional Past Surgical History / Comment(s): R hemicolectomy Past Anesthesia/Blood Transfusion Reactions: No Reported Reaction Date of Last Stent Placement:: 08-11-22 Past Psychological History: No Psychological Hx Reported Smoking Status: Former smoker Past Alcohol Use History: None Reported Past Drug Use History: None Reported - Past Family History Father Family Medical History: Congestive Heart Failure (CHF), Hypertension Brother(s) Family Medical History: Cancer, Renal Disease Sister(s) Family Medical History: Cancer Daughter(s) Family Medical History: Unable to Obtain Son(s) Family Medical History: No Reported History Medications and Allergies Home Medications Medication Instructions Recorded Confirmed Type Bisoprolol [Zebeta] 5 mg PO HS 12/15/17 09/18/22 History Aspirin EC [Ecotrin Low Dose] 81 mg PO DAILY 08/07/22 09/18/22 History Beta-Carotene [Beta Carotene] 25,000 unit PO DAILY 08/07/22 09/18/22 History Cholecalciferol [Vitamin D3 (25 50 mcg PO DAILY 08/07/22 09/18/22 History Mcg = 1000 Iu)] Cyanocobalamin (Vitamin B-12) 2,500 mcg PO DAILY 08/07/22 09/18/22 History [Vitamin B-12] Isosorbide Mononitrate ER [Imdur] 30 mg PO DAILY 08/07/22 09/18/22 History Krill/Om-3/Dha/Epa/Phospho/Ast 1 cap PO DAILY 08/07/22 09/18/22 History [Krill Oil 500 mg Softgel] Loratadine 10 mg PO DAILY 08/07/22 09/18/22 History Multivit,Calc,Min/FA/K1/Lycop 1 tab PO DAILY 08/07/22 09/18/22 History [One-A-Day Men's Complete Tab] Mv-Mn/Om3/Dha/Epa/Fish/Lut/Elsy 1 cap PO DAILY 08/07/22 09/18/22 History [Ocuvite Adult 50 Plus Softgel] Selenium 200 mcg PO DAILY 08/07/22 09/18/22 History Ubidecarenone [Co Q-10] 30 mg PO DAILY 08/07/22 09/18/22 History Zinc Gluconate [Zinc] 50 mg PO DAILY 08/07/22 09/18/22 History Atorvastatin [Lipitor] 40 mg PO HS #90 tab 08/12/22 09/18/22 Rx Clopidogrel [Plavix] 75 mg PO DAILY #90 tab 08/12/22 09/18/22 Rx Losartan Potassium [Cozaar] 100 mg PO DAILY 09/13/22 09/18/22 History Nitroglycerin Sl Tabs [Nitrostat] 0.4 mg SL Q5M PRN 09/18/22 09/18/22 History Allergies Allergy/AdvReac Type Severity Reaction Status Date / Time No Known Allergies Allergy Verified 09/18/22 11:10 Physical Examination inspection: fair amount swelling to right wrist. swelling extends to right forearm and some into elbow. Negative for erythema, ecchymosis, open wounds sensation: equal, symmetric, bilaterally intact throughout upper extremities Palpation: some TTP in anterior shoulder near biceps insertion site. minimal TTP over acromion. NTTP throughout rest of exam. ROM: full ROM in wrist flexion/ext, elbow flexion/ext, shoulder forward elev bilaterally Motor: 4/5 in resisted right wrist flex/ext and nascar driver strength in right hand. 4+/5 in other major motor groups RUE. 4+/5 in LUE motor groups Neurovascular: radial pulses intact, 2+ bilaterally. Cap refill <3 sec in digits in RUE Special tests: negative homans bilaterally. Results - Labs Labs: Abnormal Lab Results - Last 24 Hours (Table) 09/18/22 09/18/22 09/18/22 Range/Units 08:30 08:53 08:53 WBC 14.2 H (3.8-10.6) k/uL Neutrophils # 12.4 H (1.3-7.7) k/uL Lymphocytes # 0.5 L (1.0-4.8) k/uL ESR (0-15) mm/hr Sodium 135 L (137-145) mmol/L BUN 22 H (9-20) mg/dL Glucose 136 H (74-99) mg/dL Creatine Kinase 53 L (55-170) U/L C-Reactive Protein (<1.0) mg/dL 09/18/22 09/18/22 Range/Units 08:53 08:53 WBC (3.8-10.6) k/uL Neutrophils # (1.3-7.7) k/uL Lymphocytes # (1.0-4.8) k/uL ESR 67 H (0-15) mm/hr Sodium (137-145) mmol/L BUN (9-20) mg/dL Glucose (74-99) mg/dL Creatine Kinase (55-170) U/L C-Reactive Protein 7.7 H (<1.0) mg/dL H & H 09/18/22 Range/Units 08:53 Hgb 14.4 (13.0-17.5) gm/dL Hct 42.9 (39.0-53.0) % Coagulation 09/18/22 Range/Units 08:53 INR 1.1 (<1.2) Result Diagrams: 09/19/22 05:44 09/19/22 05:44 - Diagnostic results Shoulder CT: report reviewed, image reviewed Elbow CT: report reviewed, image reviewed (negative for abscess. negative for elbow effusion. AC joint arthritis) Assessment and Plan Assessment: 1. RUE swelling; right biceps tendinosis Plan: 1. RUE swelling; right biceps tendinosis; AC joint arhtritis - patient stable at bedside this morning. Patient doing better today. ESR and CRP elevated. Patient currently on Vanco. I did discuss findings from exam and CT RUE with my attending, Dr. Smith. CT RUE negative for abscess. negative for elbow effusion. positive AC joint arthritis. at this time we're not recommending any emergent/urgent orthopedic surgical intervention. We recommend conservative measures with use of pain medication and ice to the right upper extremity as needed. Patient is stable from an orthopedic standpoint for discharge home. Patient may follow-up with Dr. Smith in outpt setting for continued evaluation. At this time orthopedics ascending off. Please do not hesitate to contact us for any further questions. 2. Appreciate medical and ID management 3. Pain management - Tylenol with codeine 4. GI ppx recs 5. DVT ppx -aspirin; plavix; lovenox 6. PT/OT - WBAT 7. Appreciate consult Time with Patient: Less than 30
--- NOTE | 2022-09-19 12:33 | P.HPIM ---
History of Present Illness H&P Date: 09/18/22 HISTORY OF PRESENT ILLNESS: This is a 72-year-old male one of my patient with a previous medical history significant for hypertension and hypertensive vascular disease, hyperlipidemia, recent diagnosis of CAD post-PCI of the RCA 08/11/2022 and the last stent was placed in the LAD in 09/05/[address] Mcdaniel right radial approach, he underwent echocardiogram that showed normal ejection fraction, with mild AI mild TR and moderate MR. the patient due to left forearm and hand numbness with chest pain. He was seen by cardiology and acute coronary syndrome was ruled out. Pain and numbness was related to radiculopathy due to degenerative disc disease of the cervical spine. He was also treated for left lower lobe pneumonia. Patient presented to the hospital due to right arm pain and swelling that started the day before on 09/17. The pain was worsening and severe enough to wake him from sleep. He has been on lifting restrictions since he underwent cardiac catheterization on 09/05. No other trauma to the arm is known. No fever or chills, no chest pain, no shortness of breath. Patient was found to have mild leukocytosis of 14.2, hemoglobin 14, otherwise lab work is unremarkable. CAT scan of the upper extremity revealed osteopenia. Mild to moderate degenerative change at the before meals joint and moderate to severe at the base of the thumb. A focal 2.5 cm rounded lobulation medial upper pole right kidney. Recommend ultrasound to exclude mass. Ultrasound of the right upper extremity showed no DVT. There was noted long head biceps tendon use tendinitis as well as moderate effusion in the anterior subcu acromial/subdeltoid bursa this could reflect bursitis or could be reactive to underlying rotator cuff pathology. Patient has been admitted to the hospital, started on antibiotics, consult with Dr. Sauer and orthopedics in place. REVIEW OF SYSTEMS: Constitutional: No documented fever, no chills, no night sweats. No weight change. No weakness, fatigue or lethargy. No daytime sleepiness. EENT: No headache. No blurred vision or double vision, no loss of vision. No loss of Hearing, no ringing in the ears, no dizziness. No nasal drainage or congestion. No epistaxis. No sore throat. Lungs: No shortness of breath, no cough, no sputum production. No wheezing. Reports dyspnea with activity. Cardiovascular: No chest pain, no lower extremity edema. No palpitations. No paroxysmal nocturnal dyspnea. No orthopnea. No lightheadedness or dizziness. No syncopal episodes. Abdominal: Reports abdominal pain. No nausea, vomiting. No diarrhea. No constipation. No bloody or tarry stools reports loss of appetite. Genitourinary: No dysuria, increased frequency, urgency. No urinary retention. Musculoskeletal: No myalgias. No muscle weakness, no gait dysfunction, no frequent falls. No back pain. No neck pain. Right arm pain and swelling Integumentary: No wounds, no lesions. No rash or pruritus. No unusual bruising. No change in hair or nails. Neurologic: No aphasia. No facial droop. No change in mentation. No head injury. No headache. No paralysis. No paresthesia. Psychiatric: No depression. No anxiety. No mood swings. Endocrine: No abnormal blood sugars. No weight change. PAST MEDICAL HISTORY: Hypertension and hypertensive cardiovascular disease. Hyperlipidemia. CAD post-PCI of the RCA and LAD. Mild AI Mild TR Moderate MR BPH Colon cancer status post partial colectomy. PAST SURGICAL HISTORY: Right hemicolectomy in 2004 Hernia repair Colonoscopy 10/2018 Cardiac catheterization with PCI of the RCA 08/11/2022 PCI LAD 09/05/2022 SOCIAL HISTORY: Patient has history of smoking and quit greater than 20 years ago. No alcohol abuse or illicit drug use. FAMILY HISTORY: Father at age 82 from heart failure and hypertension. Mother at age 94 with dementia. Patient has 4 brothers one with Hodgkin's lymphoma in one with kidney disease. Patient has one sister from head and neck cancer. Patient has one son with no major medical problems. PHYSICAL EXAMINATION: General: 72-year-old male sitting up in bed in no apparent distress HEENT: Head is atraumatic, normocephalic, pupils were equal round reactive to light and recommendation, extraocular muscle movement were intact, sclera nonict jessica, conjunctivae were pale, mucous membranes of the mouth are somewhat dry. Neck: Supple, no JVP, normal carotid upstroke bilaterally, no lymphadenopathy. Chest: Decreased breath sounds at the bases, few rhonchi, no expiratort wheezes, no chest wall tenderness, no intercostal retractions. Heart: First heart sound is normal, second heart sounds normal there is JM 2/6 located at the left sternal border Abdomen: Soft, nontender, nondistended, positive bowel sounds. Extremities: There is no edema no calf tenderness DP +2 bilaterally. Neurologic examination: Patient is awake alert and oriented X 3 cranial nerves II-12 appear grossly intact, muscle power were 5 out of 5 in upper extremities and 5 out of 5 in bilateral lower extremities, deep tendon reflexes normal bilaterally. ASSESSMENT AND PLAN: 1. Right biceps tendinitis/bursitis without abscess. Consult with orthopedics and infectious disease. Patient started on Solu-Medrol 40 mg IV every 8 hours. Continue patient on IV antibiotics per infectious disease. 2. Recent left heart catheterization with PCI of the RCA and LAD. No sign of ACS. Continue patient on aspirin 81 mg daily, Lipitor 40 mg at bedtime, bisoprolol 5 mg at bedtime, Plavix 75 mg daily, Imdur 30 mg daily, Nitrostat as needed 3. Recent treatment for left lower lobe pneumonia likely community acquired pneumonia. Patient completed course of antibiotics. 4. Hypertension and hypertensive cardiovascular disease. Continue losartan 100 mg once every day as well as bisoprolol 5 mg daily monitor the patient blood pressure very closely. 5. Mixed hyperlipidemia. Continue atorvastatin 40 mg daily, keep LDL 55. 6. Recent hospitalization for left arm pain/numbness likely related to radiculopathy due to degenerative disc disease of the cervical spine. Outpatient workup planned. 7. BPH. Stable. 8. History of colon cancer the past status post partial colectomy. 9. Patient placed as an inpatient with plan for 2 night stay. 10. Full code. Past Medical History Past Medical History: Coronary Artery Disease (CAD), Cancer, Hypertension, Prostate Disorder Additional Past Medical History / Comment(s): colon cancer 2003-no radiation or chemo,enlarged prostate History of Any Multi-Drug Resistant Organisms: None Reported Past Surgical History: Bowel Resection, Heart Catheterization With Stent, Hernia Repair Additional Past Surgical History / Comment(s): R hemicolectomy Past Anesthesia/Blood Transfusion Reactions: No Reported Reaction Date of Last Stent Placement:: 08-11-22 Past Psychological History: No Psychological Hx Reported Smoking Status: Former smoker Past Alcohol Use History: None Reported Additional Past Alcohol Use History / Comment(s): quit smoking 28 yrs ago, smoked approx 20 years. Drinks 2 Beers daily. Past Drug Use History: None Reported - Past Family History Father Family Medical History: Congestive Heart Failure (CHF), Hypertension Brother(s) Family Medical History: Cancer, Renal Disease Sister(s) Family Medical History: Cancer Daughter(s) Family Medical History: Unable to Obtain Son(s) Family Medical History: No Reported History Medications and Allergies Home Medications Medication Instructions Recorded Confirmed Type Bisoprolol [Zebeta] 5 mg PO HS 12/15/17 09/18/22 History Aspirin EC [Ecotrin Low Dose] 81 mg PO DAILY 08/07/22 09/18/22 History Beta-Carotene [Beta Carotene] 25,000 unit PO DAILY 08/07/22 09/18/22 History Cholecalciferol [Vitamin D3 (25 50 mcg PO DAILY 08/07/22 09/18/22 History Mcg = 1000 Iu)] Cyanocobalamin (Vitamin B-12) 2,500 mcg PO DAILY 08/07/22 09/18/22 History [Vitamin B-12] Isosorbide Mononitrate ER [Imdur] 30 mg PO DAILY 08/07/22 09/18/22 History Krill/Om-3/Dha/Epa/Phospho/Ast 1 cap PO DAILY 08/07/22 09/18/22 History [Krill Oil 500 mg Softgel] Loratadine 10 mg PO DAILY 08/07/22 09/18/22 History Multivit,Calc,Min/FA/K1/Lycop 1 tab PO DAILY 08/07/22 09/18/22 History [One-A-Day Men's Complete Tab] Mv-Mn/Om3/Dha/Epa/Fish/Lut/Elsy 1 cap PO DAILY 08/07/22 09/18/22 History [Ocuvite Adult 50 Plus Softgel] Selenium 200 mcg PO DAILY 08/07/22 09/18/22 History Ubidecarenone [Co Q-10] 30 mg PO DAILY 08/07/22 09/18/22 History Zinc Gluconate [Zinc] 50 mg PO DAILY 08/07/22 09/18/22 History Atorvastatin [Lipitor] 40 mg PO HS #90 tab 08/12/22 09/18/22 Rx Clopidogrel [Plavix] 75 mg PO DAILY #90 tab 08/12/22 09/18/22 Rx Losartan Potassium [Cozaar] 100 mg PO DAILY 09/13/22 09/18/22 History Nitroglycerin Sl Tabs [Nitrostat] 0.4 mg SL Q5M PRN 09/18/22 09/18/22 History Allergies Allergy/AdvReac Type Severity Reaction Status Date / Time No Known Allergies Allergy Verified 09/18/22 11:10 Physical Exam Vitals: Vital Signs Temp Pulse Pulse Resp BP BP Pulse Ox 09/18/22 16:12 98.8 F 91 16 150/76 95 09/18/22 15:43 86 17 162/80 95 09/18/22 14:12 92 17 152/73 95 09/18/22 13:06 17 09/18/22 10:07 79 18 152/67 97 09/18/22 08:50 87 17 152/78 94 L 09/18/22 08:09 97.6 F 96 18 178/85 95 Intake and Output 09/18/22 09/18/22 09/18/22 06:59 14:59 22:59 Intake Total 118 Balance 118 Intake: Oral 118 Other: Voiding Method Toilet Weight 89.358 kg 89.358 kg Results CBC & Chem 7: 09/19/22 05:44 09/19/22 05:44 Labs: Abnormal Lab Results - Last 24 Hours (Table) 09/18/22 09/18/22 09/18/22 Range/Units 08:30 08:53 08:53 WBC 14.2 H (3.8-10.6) k/uL Neutrophils # 12.4 H (1.3-7.7) k/uL Lymphocytes # 0.5 L (1.0-4.8) k/uL Sodium 135 L (137-145) mmol/L BUN 22 H (9-20) mg/dL Glucose 136 H (74-99) mg/dL Creatine Kinase 53 L (55-170) U/L C-Reactive Protein (<1.0) mg/dL 09/18/22 Range/Units 08:53 WBC (3.8-10.6) k/uL Neutrophils # (1.3-7.7) k/uL Lymphocytes # (1.0-4.8) k/uL Sodium (137-145) mmol/L BUN (9-20) mg/dL Glucose (74-99) mg/dL Creatine Kinase (55-170) U/L C-Reactive Protein 7.7 H (<1.0) mg/dL Thrombosis Risk Factor Assmnt - Choose All That Apply Each Factor Represents 1 point: History of prior major surgery (<1month), Obesity (BMI >25) Each Risk Factor Represents 2 Points: Age 61-74 years Other congenital or acquired thrombophilia - If yes, enter type in comment: No Thrombosis Risk Factor Assessment Total Risk Factor Score: 4 Thrombosis Risk Factor Assessment Level: Moderate Risk
--- NOTE | 2022-09-19 13:13 | P.PN ---
Subjective Progress Note Date: 09/19/22 HISTORY OF PRESENT ILLNESS: This is a 72-year-old male one of my patient with a previous medical history significant for hypertension and hypertensive vascular disease, hyperlipidemia, recent diagnosis of CAD post-PCI of the RCA 08/11/2022 and the last stent was placed in the LAD in 09/05/[address] Mcdaniel right radial approach, he underwent echocardiogram that showed normal ejection fraction, with mild AI mild TR and moderate MR. the patient due to left forearm and hand numbness with chest pain. He was seen by cardiology and acute coronary syndrome was ruled out. Pain and numbness was related to radiculopathy due to degenerative disc disease of the cervical spine. He was also treated for left lower lobe pneumonia. Patient presented to the hospital due to right arm pain and swelling that started the day before on 09/17. The pain was worsening and severe enough to wake him from sleep. He has been on lifting restrictions since he underwent cardiac catheterization on 09/05. No other trauma to the arm is known. No fever or chills, no chest pain, no shortness of breath. Patient was found to have mild leukocytosis of 14.2, hemoglobin 14, otherwise lab work is unremarkable. CAT scan of the upper extremity revealed osteopenia. Mild to moderate degenerative change at the before meals joint and moderate to severe at the base of the thumb. A focal 2.5 cm rounded lobulation medial upper pole right kidney. Recommend ultrasound to exclude mass. Ultrasound of the right upper extremity showed no DVT. There was noted long head biceps tendon use tendinitis as well as moderate effusion in the anterior subcu acromial/subdeltoid bursa this could reflect bursitis or could be reactive to underlying rotator cuff pathology. Patient has been admitted to the hospital, started on antibiotics, consult with Dr. Sauer and orthopedics in place. 09/19: Patient is seen in follow-up today. He has significantly improved pain, range of motion and swelling to the right arm. He denies having any chest pain, shortness of breath or shortness breath on exertion. No lower extremity edema. He has been seen by Dr. Sauer and placed on vancomycin. Patient is also been seen by orthopedic surgeon with no plan for any surgical intervention at this time with plan for outpatient follow-up only and continue conservative management. Patient remains afebrile, heart rate in the 70s, blood pressure 146/73 and pulse ox 97% on room air. Repeat blood work reveals WBC 17.58, hemoglobin 13, with a count 184. REVIEW OF SYSTEMS: Constitutional: No documented fever, no chills, no night sweats. No weight change. No weakness, fatigue or lethargy. No daytime sleepiness. EENT: No headache. No blurred vision or double vision, no loss of vision. No loss of Hearing, no ringing in the ears, no dizziness. No nasal drainage or congestion. No epistaxis. No sore throat. Lungs: No shortness of breath, no cough, no sputum production. No wheezing. Reports dyspnea with activity. Cardiovascular: No chest pain, no lower extremity edema. No palpitations. No paroxysmal nocturnal dyspnea. No orthopnea. No lightheadedness or dizziness. No syncopal episodes. Abdominal: Reports abdominal pain. No nausea, vomiting. No diarrhea. No constipation. No bloody or tarry stools reports loss of appetite. Genitourinary: No dysuria, increased frequency, urgency. No urinary retention. Musculoskeletal: No myalgias. No muscle weakness, no gait dysfunction, no frequent falls. No back pain. No neck pain. Right arm pain and swelling- improving Integumentary: No wounds, no lesions. No rash or pruritus. No unusual bruising. No change in hair or nails. Neurologic: No aphasia. No facial droop. No change in mentation. No head injury. No headache. No paralysis. No paresthesia. Psychiatric: No depression. No anxiety. No mood swings. Endocrine: No abnormal blood sugars. No weight change. PHYSICAL EXAMINATION: General: 72-year-old male sitting up in bed in no apparent distress HEENT: Head is atraumatic, normocephalic, pupils were equal round reactive to light and recommendation, extraocular muscle movement were intact, sclera nonicteric, conjunctivae were pale, mucous membranes of the mouth are somewhat dry. Neck: Supple, no JVP, normal carotid upstroke bilaterally, no lymphadenopathy. Chest: Decreased breath sounds at the bases, few rhonchi, no expiratort wheezes, no chest wall tenderness, no intercostal retractions. Heart: First heart sound is normal, second heart sounds normal there is JM 2/6 located at the left sternal border Abdomen: Soft, nontender, nondistended, positive bowel sounds. Extremities: There is no edema no calf tenderness DP +2 bilaterally. Neurologic examination: Patient is awake alert and oriented X 3 cranial nerves II-12 appear grossly intact, muscle power were 5 out of 5 in upper extremities and 5 out of 5 in bilateral lower extremities, deep tendon reflexes normal bilaterally. ASSESSMENT AND PLAN: 1. Right biceps tendinitis/bursitis without abscess. Consult with orthopedics and infectious disease appreciated. Continue conservative management. Orthopedics does not plan for any surgical intervention at this point. He and patient may follow up in the outpatient arena. Patient started on Solu-Medrol 40 mg IV every 8 hours. Continue patient on IV vancomycin per infectious disease. 2. Recent left heart catheterization with PCI of the RCA and LAD. No sign of ACS. Continue patient on aspirin 81 mg daily, Lipitor 40 mg at bedtime, bisoprolol 5 mg at bedtime, Plavix 75 mg daily, Imdur 30 mg daily, Nitrostat as needed 3. Recent treatment for left lower lobe pneumonia likely community acquired pneumonia. Patient completed course of antibiotics. 4. Hypertension and hypertensive cardiovascular disease. Continue losartan 100 mg once every day as well as bisoprolol 5 mg daily monitor the patient blood pressure very closely. 5. Mixed hyperlipidemia. Continue atorvastatin 40 mg daily, keep LDL 55. 6. Recent hospitalization for left arm pain/numbness likely related to radiculopathy due to degenerative disc disease of the cervical spine. Outpatient workup planned. 7. BPH. Stable. 8. History of colon cancer the past status post partial colectomy. 9. Patient placed as an inpatient with plan for 2 night stay. 10. Full code. Impression and plan of care have been directed as dictated by the signing physician. Kasia Angulo nurse practitioner acting as scribe for signing physician. Objective - Vital Signs Vital signs: Vital Signs Temp 98.4 F 09/19/22 07:00 Pulse 74 09/19/22 07:00 Resp 16 09/19/22 07:00 BP 146/73 09/19/22 07:00 Pulse Ox 97 09/19/22 07:00 FiO2 Intake & Output 09/18/22 09/19/22 09/19/22 18:59 06:59 18:59 Intake Total 118 Balance 118 Weight 89.358 kg Intake: Oral 118 Other: Voiding Method Toilet Toilet Toilet # Voids 2 - Labs CBC & Chem 7: 09/19/22 05:44 09/19/22 05:44 Labs: Abnormal Lab Results - Last 24 Hours (Table) 09/18/22 09/18/22 09/19/22 Range/Units 08:53 08:53 05:44 WBC 17.58 H (4.50-10.00) X 10*3/uL RBC 4.21 L (4.40-5.60) X 10*6/uL Hct 39.3 L (39.6-50.0) % Neutrophils # 16.16 H (1.80-7.70) X 10*3/uL Lymphocytes # 0.38 L (0.90-5.00) X 10*3/uL Eosinophils # 0 L (0.04-0.35) X 10*3/uL ESR 67 H (0-15) mm/hr Anion Gap (4.00-12.00) mmol/L Glucose (70-110) mg/dL C-Reactive Protein 7.7 H (<1.0) mg/dL Albumin/Globulin Ratio (1.60-3.17) Ratio 09/19/22 Range/Units 05:44 WBC (4.50-10.00) X 10*3/uL RBC (4.40-5.60) X 10*6/uL Hct (39.6-50.0) % Neutrophils # (1.80-7.70) X 10*3/uL Lymphocytes # (0.90-5.00) X 10*3/uL Eosinophils # (0.04-0.35) X 10*3/uL ESR (0-15) mm/hr Anion Gap 12.10 H (4.00-12.00) mmol/L Glucose 200 H (70-110) mg/dL C-Reactive Protein 19.40 H (<1.0) mg/dL Albumin/Globulin Ratio 1.41 L (1.60-3.17) Ratio
[2022-09-19] MEDS: BISOPROLOL 5 MG TAB PO SCH (21:16)
[2022-09-19] MEDS: ATORVASTATIN 40 MG TAB PO SCH (21:22)
[2022-09-19] MEDS: VANCOMYCIN 1,500 MG in SODIUM CHLORIDE 0.9% 500 ML 500 ML IVPB SCH (21:22)
--- NOTE | 2022-09-19 22:41 | P.PN ---
Subjective Progress Note Date: 09/19/22 Principal diagnosis: Right upper extremity cellulitis Patient is a 72-year-old male presented to hospital with increasing swelling redness right upper extremity in this patient with recent cardiac catheterization to the right this approach and subsequent admission to the hospital for pneumonia with a blood draw from the right antecubital fossa patient was diagnosed with a cellulitis CT was negative for any abscess On today's evaluation that is 09/19/2022, the patient denies having any fever or any chills, the patient right forearm swelling redness and pain has Decreased intensity currently with open wound or any drainage no chest pain shortness of breath or cough no abdominal pain or diarrhea Objective - Vital Signs Vital signs: Vital Signs Temp 98.4 F 09/19/22 07:00 Pulse 74 09/19/22 07:00 Resp 16 09/19/22 07:00 BP 146/73 09/19/22 07:00 Pulse Ox 97 09/19/22 07:00 FiO2 Intake & Output 09/18/22 09/19/22 09/19/22 18:59 06:59 18:59 Intake Total 118 Balance 118 Weight 89.358 kg Intake: Oral 118 Other: Voiding Method Toilet Toilet Toilet # Voids 2 - Exam GENERAL DESCRIPTION: Elderly male up in the chair in no distress RESPIRATORY SYSTEM: Unlabored breathing , decreased breath sounds at bases HEART: S1 S2 regular rate and rhythm ,no loud murmurs ABDOMEN: Soft , no tenderness EXTREMITIES: Right upper extremity swelling and redness has slightly decreased no open wound or any drainage - Labs CBC & Chem 7: 09/19/22 05:44 09/19/22 05:44 Labs: Abnormal Lab Results - Last 24 Hours (Table) 09/18/22 09/18/22 09/19/22 Range/Units 08:53 08:53 05:44 WBC 17.58 H (4.50-10.00) X 10*3/uL RBC 4.21 L (4.40-5.60) X 10*6/uL Hct 39.3 L (39.6-50.0) % Neutrophils # 16.16 H (1.80-7.70) X 10*3/uL Lymphocytes # 0.38 L (0.90-5.00) X 10*3/uL Eosinophils # 0 L (0.04-0.35) X 10*3/uL ESR 67 H (0-15) mm/hr Anion Gap (4.00-12.00) mmol/L Glucose (70-110) mg/dL C-Reactive Protein 7.7 H (<1.0) mg/dL Albumin/Globulin Ratio (1.60-3.17) Ratio 09/19/ Range/Units 05:44 WBC (4.50-10.00) X 10*3/uL RBC (4.40-5.60) X 10*6/uL Hct (39.6-50.0) % Neutrophils # (1.80-7.70) X 10*3/uL Lymphocytes # (0.90-5.00) X 10*3/uL Eosinophils # (0.04-0.35) X 10*3/uL ESR (0-15) mm/hr Anion Gap 12.10 H (4.00-12.00) mmol/L Glucose 200 H (70-110) mg/dL C-Reactive Protein 19.40 H (<1.0) mg/dL Albumin/Globulin Ratio 1.41 L (1.60-3.17) Ratio Assessment and Plan (1) Cellulitis of right upper extremity Current Visit: Yes Status: Acute Code(s): L03.113 - CELLULITIS OF RIGHT UPPER LIMB SNOMED Code(s): 725250186 Plan: 1patient presented hospital with increasing pain swelling and redness to the right upper extremity in this patient with recent hospitalization for pneumonia and prior to that the patient did have a cardiac cath to the right wrist approach with concern for cellulitis CT was negative for any abscess keeping in mind his recent hospitalization with need for for resistant gram-positive such as MRSA 2-Pt seems to have shown some clinical imporvment , will continue with vancomycin pharmacy to dose with a target trough of 15 while waiting for cultures to finalize and apply COLLEEN wrap to keep the swelling down Dictation was produced using [employer] dictation software. please excuse any grammatical, word or spelling errors. Time with Patient: Less than 30
[2022-09-20 06:32] LABS: ALT 23 U/L (4-49); AST 25 U/L (17-59); African American GFR (CKD) 86 (>60 ml/min/1.73 sqM); Albumin 3.1 g/dL (3.5-5.0); Albumin/Globulin Ratio 1.1; Alkaline Phosphatase 66 U/L (38-126); Anion Gap 7 mmol/L; Blood Urea Nitrogen 29 mg/dL (9-20); Calcium 8.5 mg/dL (8.4-10.2); Carbon Dioxide 22 mmol/L (22-30); Chloride 107 mmol/L (98-107); Globulin 2.8 g/dL; Glucose 143 mg/dL (74-99); Non-African American GFR(CKD) 75 (>60 ml/min/1.73 sqM); Potassium 4.6 mmol/L (3.5-5.1); Sodium 136 mmol/L (137-145); Total Bilirubin 0.2 mg/dL (0.2-1.3); Total Protein 5.9 g/dL (6.3-8.2)
[2022-09-20] MEDS: methylPREDNISolone SOD SUCCI 40 MG/ML 1 ML VIAL IV SCH ×3 (08:06→22:10)
[2022-09-20] MEDS: LORATADINE 10 MG TAB PO SCH (08:08)
[2022-09-20] MEDS: CLOPIDOGREL 75 MG TAB PO SCH (08:08)
[2022-09-20] MEDS: MULTIVITAMINS, THERA 1 EACH TAB PO SCH (08:08)
[2022-09-20] MEDS: ENOXAPARIN 40 MG/0.4 ML SYRINGE SQ SCH (08:08)
[2022-09-20] MEDS: ZINC SULFATE 220 MG CAP PO SCH (08:08)
[2022-09-20] MEDS: ASPIRIN 81 MG PO SCH (08:08)
[2022-09-20] MEDS: CHOLECALCIFEROL 25 MCG (1000 IU) TABLET PO SCH (08:08)
[2022-09-20] MEDS: CYANOCOBALAMIN 500 MCG TAB PO SCH (08:09)
[2022-09-20] MEDS: ISOSORBIDE MONONITRATE ER 30 MG TAB.ER.24H PO SCH (08:09)
[2022-09-20] MEDS: LOSARTAN 50 MG TAB PO SCH (08:09)
[2022-09-20] MEDS: VIT A,C & E-LUTEIN-MINERALS 1 EACH TAB PO SCH (08:09)
[2022-09-20 10:06] LABS: Basophils # (A) 0.01 X 10*3/uL (0.00-0.10); Basophils % (A) 0.1 %; Eosinophils # (A) 0 X 10*3/uL (0.04-0.35); Eosinophils % (A) 0 %; HCT 38.2 % (39.6-50.0); HGB 12.6 d/dL (13.0-17.0); Lymphocytes # (A) 0.45 X 10*3/uL (0.90-5.00); Lymphocytes % (A) 2.4 %; MCH 30.7 pg (27.0-32.0); MCV 93.2 FL (80.0-97.0); Mean Platelet Volume 9.8 FL (9.5-12.2); Monocytes # (A) 0.79 X 10*3/uL (0.20-1.00); Monocytes % (A) 4.2 %; NRBC Per 100 WBC 0 X 10*3/uL (0.00-0.01); Neutrophils # (A) 17.52 X 10*3/uL (1.80-7.70); Neutrophils % (A) 92.3 %; Platelet Count 224 X 10*3/uL (140-440); RDW 12.8 % (11.5-14.5); WBC 18.96 X 10*3/uL (4.50-10.00)
[2022-09-20] MEDS: VANCOMYCIN 1,500 MG in SODIUM CHLORIDE 0.9% 500 ML 500 ML IVPB SCH (13:41)
--- NOTE | 2022-09-20 13:47 | P.PN ---
Subjective Progress Note Date: 09/20/22 Principal diagnosis: Right upper extremity cellulitis Patient is a 72-year-old male presented to hospital with increasing swelling redness right upper extremity in this patient with recent cardiac catheterization to the right this approach and subsequent admission to the hospital for pneumonia with a blood draw from the right antecubital fossa patient was diagnosed with a cellulitis CT was negative for any abscess On today's evaluation that is 09/20/2022, the patient remains to be febrile, the patient right forearm swelling redness and pain has decreased in intensity, the patient currently with open wound or any drainage no chest pain shortness of breath or cough no abdominal pain or diarrhea Patient did have white count of 18.96 with a left shift, creatinine is normal at 0.99, blood culture so far negative Objective - Vital Signs Vital signs: Vital Signs Temp 98.2 F 09/20/22 07:00 Pulse 67 09/20/22 07:00 Resp 14 09/20/22 07:00 BP 154/85 09/20/22 07:00 Pulse Ox 98 09/20/22 07:00 FiO2 Intake & Output 09/19/22 09/20/22 09/20/22 18:59 06:59 18:59 Intake Total 358 600 Balance 358 600 Intake: Oral 358 600 Other: Voiding Method Toilet Toilet Toilet # Voids 3 1 - Exam GENERAL DESCRIPTION: Elderly male up in the chair in no distress RESPIRATORY SYSTEM: Unlabored breathing , decreased breath sounds at bases HEART: S1 S2 regular rate and rhythm ,no loud murmurs ABDOMEN: Soft , no tenderness EXTREMITIES: Right upper extremity swelling and redness has slightly decreased no open wound or any drainage - Labs CBC & Chem 7: 09/20/22 05:50 09/20/22 05:50 Labs: Abnormal Lab Results - Last 24 Hours (Table) 09/20/22 09/20/22 Range/Units 05:50 05:50 WBC 18.96 H (4.50-10.00) X 10*3/uL RBC 4.10 L (4.40-5.60) X 10*6/uL Hgb 12.6 L (13.0-17.0) d/dL Hct 38.2 L (39.6-50.0) % Neutrophils # 17.52 H (1.80-7.70) X 10*3/uL Lymphocytes # 0.45 L (0.90-5.00) X 10*3/uL Eosinophils # 0 L (0.04-0.35) X 10*3/uL Sodium 136 L (137-145) mmol/L BUN 29 H (9-20) mg/dL Glucose 143 H (74-99) mg/dL Total Protein 5.9 L (6.3-8.2) g/dL Albumin 3.1 L (3.5-5.0) g/dL Microbiology - Last 24 Hours (Table) 09/18/22 12:00 Blood Culture - Preliminary Blood 09/18/22 11:45 Blood Culture - Preliminary Blood Assessment and Plan (1) Cellulitis of right upper extremity Current Visit: Yes Status: Acute Code(s): L03.113 - CELLULITIS OF RIGHT UPPER LIMB SNOMED Code(s): 079476181 Plan: 1patient presented hospital with increasing pain swelling and redness to the right upper extremity in this patient with recent hospitalization for pneumonia and prior to that the patient did have a cardiac cath to the right wrist approach with concern for cellulitis CT was negative for any abscess keeping in mind his recent hospitalization with need for for resistant gram-positive such as MRSA 2-patient has shown clinical imporvment as far as right upper extremity cell ulitis , patient will continue with vancomycin pharmacy to dose with a plan to finish therapy with oral doxycycline 7-10 days 3leukocyte is more likely steroid related as clinically doubt any worsening infection Dictation was produced using [employer] dictation software. please excuse any grammatical, word or spelling errors. Time with Patient: Less than 30
[2022-09-20] MEDS: ATORVASTATIN 40 MG TAB PO SCH (22:10)
[2022-09-20] MEDS: BISOPROLOL 5 MG TAB PO SCH (22:10)
[2022-09-21] MEDS ORDERED: VANCOMYCIN TROUGH DUE 1 EACH MISC MISCELLANE ONE (05:00)
[2022-09-21 06:22] LABS: African American GFR (CKD) 75 (>60 ml/min/1.73 sqM); Non-African American GFR(CKD) 65 (>60 ml/min/1.73 sqM)
--- NOTE | 2022-09-21 07:56 | P.PN ---
Subjective Progress Note Date: 09/20/22 HISTORY OF PRESENT ILLNESS: This is a 72-year-old male one of my patient with a previous medical history significant for hypertension and hypertensive vascular disease, hyperlipidemia, recent diagnosis of CAD post-PCI of the RCA 08/11/2022 and the last stent was placed in the LAD in 09/05/[address] Mcdaniel right radial approach, he underwent echocardiogram that showed normal ejection fraction, with mild AI mild TR and moderate MR. the patient due to left forearm and hand numbness with chest pain. He was seen by cardiology and acute coronary syndrome was ruled out. Pain and numbness was related to radiculopathy due to degenerative disc disease of the cervical spine. He was also treated for left lower lobe pneumonia. Patient presented to the hospital due to right arm pain and swelling that started the day before on 09/17. The pain was worsening and severe enough to wake him from sleep. He has been on lifting restrictions since he underwent cardiac catheterization on 09/05. No other trauma to the arm is known. No fever or chills, no chest pain, no shortness of breath. Patient was found to have mild leukocytosis of 14.2, hemoglobin 14, otherwise lab work is unremarkable. CAT scan of the upper extremity revealed osteopenia. Mild to moderate degenerative change at the before meals joint and moderate to severe at the base of the thumb. A focal 2.5 cm rounded lobulation medial upper pole right kidney. Recommend ultrasound to exclude mass. Ultrasound of the right upper extremity showed no DVT. There was noted long head biceps tendon use tendinitis as well as moderate effusion in the anterior subcu acromial/subdeltoid bursa this could reflect bursitis or could be reactive to underlying rotator cuff pathology. Patient has been admitted to the hospital, started on antibiotics, consult with Dr. Sauer and orthopedics in place. 09/19: Patient is seen in follow-up today. He has significantly improved pain, range of motion and swelling to the right arm. He denies having any chest pain, shortness of breath or shortness breath on exertion. No lower extremity edema. He has been seen by Dr. Sauer and placed on vancomycin. Patient is also been seen by orthopedic surgeon with no plan for any surgical intervention at this time with plan for outpatient follow-up only and continue conservative management. Patient remains afebrile, heart rate in the 70s, blood pressure 146/73 and pulse ox 97% on room air. Repeat blood work reveals WBC 17.58, hemoglobin 13, with a count 184. 7/29: Patient is sitting up in bed in acute distress, he denies any chest pain o r shortness of breath, less pain and no swelling in the right arm, we will stop Solu-Medrol and we will discuss with ID sending him home on oral ABX hopefully in 24 hours REVIEW OF SYSTEMS: Constitutional: No documented fever, no chills, no night sweats. No weight change. No weakness, fatigue or lethargy. No daytime sleepiness. EENT: No headache. No blurred vision or double vision, no loss of vision. No loss of Hearing, no ringing in the ears, no dizziness. No nasal drainage or congestion. No epistaxis. No sore throat. Lungs: No shortness of breath, no cough, no sputum production. No wheezing. Reports dyspnea with activity. Cardiovascular: No chest pain, no lower extremity edema. No palpitations. No paroxysmal nocturnal dyspnea. No orthopnea. No lightheadedness or dizziness. No syncopal episodes. Abdominal: Reports abdominal pain. No nausea, vomiting. No diarrhea. No constipation. No bloody or tarry stools reports loss of appetite. Genitourinary: No dysuria, increased frequency, urgency. No urinary retention. Musculoskeletal: No myalgias. No muscle weakness, no gait dysfunction, no frequent falls. No back pain. No neck pain. Right arm pain and swelling-imp roving Integumentary: No wounds, no lesions. No rash or pruritus. No unusual bruising. No change in hair or nails. Neurologic: No aphasia. No facial droop. No change in mentation. No head injury. No headache. No paralysis. No paresthesia. Psychiatric: No depression. No anxiety. No mood swings. Endocrine: No abnormal blood sugars. No weight change. PHYSICAL EXAMINATION: General: 72-year-old male sitting up in bed in no apparent distress HEENT: Head is atraumatic, normocephalic, pupils were equal round reactive to light and recommendation, extraocular muscle movement were intact, sclera nonicteric, conjunctivae were pale, mucous membranes of the mouth are somewhat dry. Neck: Supple, no JVP, normal carotid upstroke bilaterally, no lymphadenopathy. Chest: Decreased breath sounds at the bases, few rhonchi, no expiratort wheezes, no chest wall tenderness, no intercostal retractions. Heart: First heart sound is normal, second heart sounds normal there is JM 2/6 located at the left sternal border Abdomen: Soft, nontender, nondistended, positive bowel sounds. Extremities: There is no edema no calf tenderness DP +2 bilaterally. Neurologic examination: Patient is awake alert and oriented X 3 cranial nerves II-12 appear grossly intact, muscle power were 5 out of 5 in upper extremities and 5 out of 5 in bilateral lower extremities, deep tendon reflexes normal bilaterally. ASSESSMENT AND PLAN: 1. Right biceps tendinitis/bursitis without abscess. Consult with orthopedics and infectious disease appreciated. Continue conservative management. Orthopedics does not plan for any surgical intervention at this point. He and patient may follow up in the outpatient arena. Continue patient on IV vancomycin per infectious disease., Discontinue Solu-Medrol 2. Recent left heart catheterization with PCI of the RCA and LAD. No sign of ACS. Continue patient on aspirin 81 mg daily, Lipitor 40 mg at bedtime, bisoprolol 5 mg at bedtime, Plavix 75 mg daily, Imdur 30 mg daily, Nitrostat as needed 3. Recent treatment for left lower lobe pneumonia likely community acquired pneumonia. Patient completed course of antibiotics. 4. Hypertension and hypertensive cardiovascular disease. Continue losartan 100 mg once every day as well as bisoprolol 5 mg daily monitor the patient blood pressure very closely. 5. Mixed hyperlipidemia. Continue atorvastatin 40 mg daily, keep LDL 55. 6. Recent hospitalization for left arm pain/numbness likely related to radiculo ross due to degenerative disc disease of the cervical spine. Outpatient workup planned. 7. BPH. Stable. 8. History of colon cancer the past status post partial colectomy. 9. Home in AM Objective - Vital Signs Vital signs: Vital Signs Temp 97.9 F 09/19/22 19:27 Pulse 82 09/19/22 19:27 Resp 16 09/19/22 19:27 BP 151/68 09/19/22 19:27 Pulse Ox 97 09/19/22 19:27 FiO2 Intake & Output 09/19/22 09/19/22 09/20/22 06:59 18:59 06:59 Intake Total 358 Balance 358 Intake: Oral 358 Other: Voiding Method Toilet Toilet Toilet # Voids 2 3 1 - Labs CBC & Chem 7: 09/20/22 05:50 09/21/22 05:12 Labs: Abnormal Lab Results - Last 24 Hours (Table) 09/19/22 09/19/22 Range/Units 05:44 05:44 WBC 17.58 H (4.50-10.00) X 10*3/uL RBC 4.21 L (4.40-5.60) X 10*6/uL Hct 39.3 L (39.6-50.0) % Neutrophils # 16.16 H (1.80-7.70) X 10*3/uL Lymphocytes # 0.38 L (0.90-5.00) X 10*3/uL Eosinophils # 0 L (0.04-0.35) X 10*3/uL Anion Gap 12.10 H (4.00-12.00) mmol/L Glucose 200 H (70-110) mg/dL C-Reactive Protein 19.40 H (0.00-0.80) mg/dL Albumin/Globulin Ratio 1.41 L (1.60-3.17) Ratio Microbiology - Last 24 Hours (Table) 09/18/22 12:00 Blood Culture - Preliminary Blood 09/18/22 11:45 Blood Culture - Preliminary Blood
[2022-09-21 08:02] VITALS: BP 160/81; PULSE 66; RESP 18; TEMP 97.3
[2022-09-21] MEDS: VANCOMYCIN 1,500 MG in SODIUM CHLORIDE 0.9% 500 ML 500 ML IVPB SCH (08:12)
[2022-09-21] MEDS: MULTIVITAMINS, THERA 1 EACH TAB PO SCH (08:13)
[2022-09-21] MEDS: VIT A,C & E-LUTEIN-MINERALS 1 EACH TAB PO SCH (08:13)
[2022-09-21] MEDS: CYANOCOBALAMIN 500 MCG TAB PO SCH (08:13)
[2022-09-21] MEDS: LORATADINE 10 MG TAB PO SCH (08:13)
[2022-09-21] MEDS: ZINC SULFATE 220 MG CAP PO SCH (08:13)
[2022-09-21] MEDS: LOSARTAN 50 MG TAB PO SCH (08:13)
[2022-09-21] MEDS: ISOSORBIDE MONONITRATE ER 30 MG TAB.ER.24H PO SCH (08:13)
[2022-09-21] MEDS: CHOLECALCIFEROL 25 MCG (1000 IU) TABLET PO SCH (08:13)
[2022-09-21] MEDS: CLOPIDOGREL 75 MG TAB PO SCH (08:13)
[2022-09-21] MEDS: ASPIRIN 81 MG PO SCH (08:13)
[2022-09-21] MEDS: ENOXAPARIN 40 MG/0.4 ML SYRINGE SQ SCH (08:14)
--- NOTE | 2022-09-21 08:39 | XR ---
EXAMINATION TYPE: XR chest 2V DATE OF EXAM: 09/21/2022 8:12 AM COMPARISON: Chest radiographs from09/13/2022 TECHNIQUE: XR chest 2V Frontal and lateral views of the chest. CLINICAL INDICATION:Male, 72 years old with history of Follow up Pneumonia; FINDINGS: Lungs/Pleura: There is no evidence of pleural effusion, focal consolidation, or pneumothorax. Pulmonary vascularity: Unremarkable. Heart/mediastinum: Cardiomediastinal silhouette is unremarkable. Musculoskeletal: No acute osseous pathology. IMPRESSION: No acute cardiopulmonary disease/process.
[2022-09-21 10:12] LABS: Basophils % (A) 0 %; Eosinophils # (A) 0.2 k/uL (0-0.7); Eosinophils % (A) 1 %; HCT 35.6 % (39.0-53.0); Lymphocytes # (A) 0.6 k/uL (1.0-4.8); Lymphocytes % (A) 4 %; MCH 31.7 pg (25.0-35.0); MCHC 33.6 g/dL (31.0-37.0); MCV 94.4 fL (80.0-100.0); Mean Platelet Volume 7.9; Monocytes # (A) 0.7 k/uL (0-1.0); Monocytes % (A) 4 %; Neutrophils # (A) 13.9 k/uL (1.3-7.7); Neutrophils % (A) 90 %; Platelet Count 227 k/uL (150-450); RBC 3.77 m/uL (4.30-5.90); RDW 12.6 % (11.5-15.5); WBC 15.4 k/uL (3.8-10.6)
[2022-09-21 10:42] LABS: ALT 48 U/L (4-49); AST 35 U/L (17-59); African American GFR (CKD) 86 (>60 ml/min/1.73 sqM); Albumin 2.8 g/dL (3.5-5.0); Albumin/Globulin Ratio 1.1; Alkaline Phosphatase 51 U/L (38-126); Anion Gap 7 mmol/L; Blood Urea Nitrogen 36 mg/dL (9-20); Calcium 7.9 mg/dL (8.4-10.2); Carbon Dioxide 21 mmol/L (22-30); Chloride 108 mmol/L (98-107); Globulin 2.6 g/dL; Glucose 138 mg/dL (74-99); Non-African American GFR(CKD) 75 (>60 ml/min/1.73 sqM); Potassium 4.1 mmol/L (3.5-5.1); Sodium 136 mmol/L (137-145); Total Bilirubin 0.2 mg/dL (0.2-1.3); Total Protein 5.4 g/dL (6.3-8.2)
--- NOTE | 2022-09-21 10:50 | P.DS ---
Providers Date of admission: 09/19/22 12:24 Expected date of discharge: 09/21/22 Attending physician: Abdias Villegas Consults: 09/18/22 10:28 Consult Physician Stat Consulting Provider: Christian Smith Consult Reason/Comments: buritis with ROM impairment Do you want consulting provider notified?: Yes Consult Physician Stat Consulting Provider: Raysa Sauer Consult Reason/Comments: cellulitis Do you want consulting provider notified?: Yes Primary care physician: Abdias Villegas Hospital Course: HISTORY OF PRESENT ILLNESS: This is a 72-year-old male one of my patient with a previous medical history significant for hypertension and hypertensive vascular disease, hyperlipidemia, recent diagnosis of CAD post-PCI of the RCA 08/11/2022 and the last stent was placed in the LAD in 09/05/[address] Mcdaniel right radial approach, he underwent echocardiogram that showed normal ejection fraction, with mild AI mild TR and moderate MR. the patient due to left forearm and hand numbness with chest pain. He was seen by cardiology and acute coronary syndrome was ruled out. Pain and numbness was related to radiculopathy due to degenerative disc disease of the cervical spine. He was also treated for left lower lobe pneumonia. Patient presented to the hospital due to right arm pain and swelling that started the day before on 09/17. The pain was worsening and severe enough to wake him from sleep. He has been on lifting restrictions since he underwent cardiac catheterization on 09/05. No other trauma to the arm is known. No fever or chills, no chest pain, no shortness of breath. Patient was found to have mild leukocytosis of 14.2, hemoglobin 14, otherwise lab work is unremarkable. CAT scan of the upper extremity revealed osteopenia. Mild to moderate degenerative change at the before meals joint and moderate to severe at the base of the thumb. A focal 2.5 cm rounded lobulation medial upper pole right kidney. Recommend ultrasound to exclude mass. Ultrasound of the right upper extremity showed no DVT. There was noted long head biceps tendon use tendinitis as well as moderate effusion in the anterior subcu acromial/subdeltoid bursa this could reflect bursitis or could be reactive to underlying rotator cuff pathology. Patient has been admitted to the hospital, started on antibiotics, consult with Dr. Sauer and orthopedics in place. 09/19: Patient is seen in follow-up today. He has significantly improved pain, range of motion and swelling to the right arm. He denies having any chest pain, shortness of breath or shortness breath on exertion. No lower extremity edema. He has been seen by Dr. Sauer and placed on vancomycin. Patient is also been seen by orthopedic surgeon with no plan for any surgical intervention at this time with plan for outpatient follow-up only and continue conservative management. Patient remains afebrile, heart rate in the 70s, blood pressure 146/73 and pulse ox 97% on room air. Repeat blood work reveals WBC 17.58, hemoglobin 13, with a count 184. 09/20: Patient is sitting up in bed in acute distress, he denies any chest pain or shortness of breath, less pain and no swelling in the right arm, we will stop Solu-Medrol and we will discuss with ID sending him home on oral ABX hopefully in 24 hours 09/21: doing better no more issues, no more pain or limited range of motion of the right upper extremity, we will discontinue Vancomycin and we will start Doxycylin 100 mg po bid for 7 days we will follow up in the office in 1 week Discharge Diagnoses: 1. Right biceps tendinitis/bursitis without abscess. 2. Recent left heart catheterization with PCI of the RCA and LAD. 3. Recent treatment for left lower lobe pneumonia likely community acquired pneumonia. 4. Hypertension and hypertensive cardiovascular disease. 5. Mixed hyperlipidemia. 6. Recent hospitalization for left arm pain/numbness likely related to radiculopathy due to degenerative disc disease of the cervical spine. 7. BPH. Stable. 8. History of colon cancer the past status post partial colectomy. Patient Condition at Discharge: Stable Plan - Discharge Summary New Discharge Prescriptions: No Action Bisoprolol [Zebeta] 5 mg PO HS Aspirin EC [Ecotrin Low Dose] 81 mg PO DAILY Beta-Carotene [Beta Carotene] 25,000 unit PO DAILY Cholecalciferol [Vitamin D3 (25 Mcg = 1000 Iu)] 50 mcg PO DAILY Cyanocobalamin (Vitamin B-12) [Vitamin B-12] 2,500 mcg PO DAILY Isosorbide Mononitrate ER [Imdur] 30 mg PO DAILY Krill/Om-3/Dha/Epa/Phospho/Ast [Krill Oil 500 mg Softgel] 1 cap PO DAILY Multivit,Calc,Min/FA/K1/Lycop [One-A-Day Men's Complete Tab] 1 tab PO DAILY Selenium 200 mcg PO DAILY Ubidecarenone [Co Q-10] 30 mg PO DAILY Zinc Gluconate [Zinc] 50 mg PO DAILY Clopidogrel [Plavix] 75 mg PO DAILY #90 tab Losartan Potassium [Cozaar] 100 mg PO DAILY Nitroglycerin Sl Tabs [Nitrostat] 0.4 mg SL Q5M PRN PRN Reason: Chest Pain Loratadine 10 mg PO DAILY Mv-Mn/Om3/Dha/Epa/Fish/Lut/Elsy [Ocuvite Adult 50 Plus Softgel] 1 cap PO DAILY Atorvastatin [Lipitor] 40 mg PO HS #90 tab Discharge Medication List Bisoprolol [Zebeta] 5 mg PO HS 12/15/17 [History] Aspirin EC [Ecotrin Low Dose] 81 mg PO DAILY 08/07/22 [History] Beta-Carotene [Beta Carotene] 25,000 unit PO DAILY 08/07/22 [History] Cholecalciferol [Vitamin D3 (25 Mcg = 1000 Iu)] 50 mcg PO DAILY 08/07/22 [History] Cyanocobalamin (Vitamin B-12) [Vitamin B-12] 2,500 mcg PO DAILY 08/07/22 [History] Isosorbide Mononitrate ER [Imdur] 30 mg PO DAILY 08/07/22 [History] Krill/Om-3/Dha/Epa/Phospho/Ast [Krill Oil 500 mg Softgel] 1 cap PO DAILY 08/07/22 [History] Loratadine 10 mg PO DAILY 08/07/22 [History] Multivit,Calc,Min/FA/K1/Lycop [One-A-Day Men's Complete Tab] 1 tab PO DAILY 08/07/22 [History] Mv-Mn/Om3/Dha/Epa/Fish/Lut/Elsy [Ocuvite Adult 50 Plus Softgel] 1 cap PO DAILY 08/07/22 [History] Selenium 200 mcg PO DAILY 08/07/22 [History] Ubidecarenone [Co Q-10] 30 mg PO DAILY 08/07/22 [History] Zinc Gluconate [Zinc] 50 mg PO DAILY 08/07/22 [History] Atorvastatin [Lipitor] 40 mg PO HS #90 tab 08/12/22 [Rx] Clopidogrel [Plavix] 75 mg PO DAILY #90 tab 08/12/22 [Rx] Losartan Potassium [Cozaar] 100 mg PO DAILY 09/13/22 [History] Nitroglycerin Sl Tabs [Nitrostat] 0.4 mg SL Q5M PRN 09/18/22 [History] Follow up Appointment(s)/Referral(s): Abdias Villegas MD [Primary Care Provider] - 1-2 days
== END 2022-09-21 12:00 | disposition home or self-care (01) | DRG 558 ==
LOC: EC 08:08 → 6NMEDSUR 10:28 → OBSVTOIN 09-19 12:24
PROVIDERS: ADMIT Internal Medicine; ATTEND Internal Medicine
DX: M75.21 Bicipital tendinitis, right shoulder (principal); L03.113 Cellulitis of right upper limb; M75.51 Bursitis of right shoulder; I25.10 Atherosclerotic heart disease of native coronary artery without angina pectoris; M19.012 Primary osteoarthritis, left shoulder; M19.011 Primary osteoarthritis, right shoulder; Z95.5 Presence of coronary angioplasty implant and graft; E78.2 Mixed hyperlipidemia; I08.3 Combined rheumatic disorders of mitral, aortic and tricuspid valves; I11.9 Hypertensive heart disease without heart failure; M50.10 Cervical disc disorder with radiculopathy, unspecified cervical region; M85.80 Other specified disorders of bone density and structure, unspecified site; N40.0 Benign prostatic hyperplasia without lower urinary tract symptoms; Z79.02 Long term (current) use of antithrombotics/antiplatelets; Z79.82 Long term (current) use of aspirin; Z79.899 Other long term (current) drug therapy; Z82.49 Family history of ischemic heart disease and other diseases of the circulatory system; Z85.038 Personal history of other malignant neoplasm of large intestine; Z90.49 Acquired absence of other specified parts of digestive tract
CPT/HCPCS: 36415; 71046; 80053; 80202; 82550; 82565; 83605; 84550; 85025; 85610; 85652; 86140; 87040; 96365; 96375; 96376; 99285

== ENCOUNTER → 2022-10-13 | Outpatient (CLI) | payer MEDICARE ==
[2022-10-13 11:06] LABS: ALT 33 U/L (10-49); AST 22 U/L (14-35); Albumin/Globulin Ratio 2.11 Ratio (1.60-3.17); Alkaline Phosphatase 64 U/L (41-126); BUN/Creat Ratio 20.17 Ratio (12.00-20.00); Blood Urea Nitrogen 24.2 mg/dL (9.0-27.0); Carbon Dioxide 25.2 mmol/L (21.6-31.8); Chloride 108 mmol/L (96-109); Chol/HDL Ratio 2.12 Ratio; Globulin 1.9 d/dL (1.6-3.3); Glucose 108 mg/dL (70-110); LDL Cholesterol,Calculated 49.5 mg/dL (0.0-131.0); Potassium 4.3 mmol/L (3.5-5.5); Sodium 143 mmol/L (135-145); Total Bilirubin 0.5 mg/dL (0.3-1.2); Total Protein 5.9 d/dL (6.2-8.2); VLDL Calculation 11.28 mg/dL (5.00-40.00)
== END | disposition home or self-care (01) ==
LOC: LABWHC1 07:20
PROVIDERS: ATTEND Internal Medicine Interventional Cardiology
DX: I10 Essential (primary) hypertension (principal); E78.2 Mixed hyperlipidemia
CPT/HCPCS: 36415; 80053; 80061

== ENCOUNTER → 2022-10-23 | Outpatient (CLI) | payer MEDICARE ==
--- NOTE | 2022-10-23 15:33 | US ---
EXAMINATION TYPE: US kidneys/renal and bladder DATE OF EXAM: 10/23/2022 COMPARISON: CT 2022, US 2018 CLINICAL INDICATION: Male, 72 years old with history of N28.89 DISORDER OF THE KIDNEY AND URETER; Rec ent CT shows upper right kidney protuberance, ultrasound ordered to exclude mass vs. lobulation EXAM MEASUREMENTS: Right Kidney: 11.7 x 4.6 x 6.1 cm Left Kidney: 11.8 x 5.3 x 5.2 cm Right Kidney: Questionable exophytic superior pole mass. Left Kidney: wnl Bladder: wnl Bilateral Jets seen: yes Prostate - enlarged at 4.8 x 4.6 x 5.6cm There is no evidence for hydronephrosis at this point in time. No nephrolithiasis is seen. Questiona ble exophytic right superior pole heterogenous hypoechoic lesion measuring up to 2.9 cm. Cortical med ullary differentiation is maintained. The urinary bladder is anechoic. Bilateral ureteral jets are s een. IMPRESSION: 1. Questionable right renal superior pole exophytic mass. Further evaluation with CT or MR abdomen wi th and without IV contrast renal mass protocol is recommended. 2. No nephrolithiasis or hydronephrosis. 3. Prostatomegaly.
== END | disposition home or self-care (01) ==
LOC: RADUSWWP 13:35
PROVIDERS: ATTEND Internal Medicine
DX: N40.0 Benign prostatic hyperplasia without lower urinary tract symptoms (principal); N28.89 Other specified disorders of kidney and ureter
CPT/HCPCS: 76770

== ENCOUNTER → 2022-12-11 | Outpatient (CLI) | payer MEDICARE ==
[2022-12-11 09:01] LABS: Appearance,Urine Clear (Clear); Bilirubin,Urine Negative (Negative); Blood,Urine Small (Negative); Color,Urine Light Yellow; Glucose,Urine (UA) Negative (Negative); Hyaline Casts,Urine 1 /lpf (0-2); Ketones,Urine Negative (Negative); Leukocyte Esterase,Urine Negative (Negative); Mucus,Urine Rare /hpf; Nitrite,Urine Negative (Negative); Protein,Urine Negative (Negative); RBC,Urine 2 /hpf (0-5); Specific Gravity,Urine 1.017 (1.001-1.035); Squamous Epithelial Cell,Urine <1 /hpf (0-4); Urobilinogen,Urine <2.0 mg/dL (<2.0)
[2022-12-11 10:59] LABS: Basophils # (A) 0.03 X 10*3/uL (0.00-0.10); Basophils % (A) 0.4 %; Eosinophils # (A) 0.17 X 10*3/uL (0.04-0.35); Eosinophils % (A) 2.1 %; HCT 46.9 % (39.6-50.0); Lymphocytes # (A) 0.67 X 10*3/uL (0.90-5.00); Lymphocytes % (A) 8.4 %; MCH 30.4 pg (27.0-32.0); MCV 94.9 FL (80.0-97.0); Mean Platelet Volume 10.1 FL (9.5-12.2); Monocytes # (A) 0.96 X 10*3/uL (0.20-1.00); NRBC Per 100 WBC 0 X 10*3/uL (0.00-0.01); Neutrophils # (A) 6.14 X 10*3/uL (1.80-7.70); Neutrophils % (A) 76.7 %; Platelet Count 170 X 10*3/uL (140-440); RBC 4.94 X 10*6/uL (4.40-5.60); RDW 13.6 % (11.5-14.5)
[2022-12-11 11:28] LABS: ALT 19 U/L (10-49); AST 16 U/L (14-35); Albumin 4.4 d/dL (3.8-4.9); Alkaline Phosphatase 77 U/L (41-126); BUN/Creat Ratio 19.33 Ratio (12.00-20.00); Blood Urea Nitrogen 23.2 mg/dL (9.0-27.0); Calcium 9.4 mg/dL (8.7-10.3); Carbon Dioxide 25.6 mmol/L (21.6-31.8); Chloride 106 mmol/L (96-109); Chol/HDL Ratio 2.39 Ratio; Glucose 103 mg/dL (70-110); LDL Cholesterol,Calculated 51.5 mg/dL (0.0-131.0); Magnesium 2.1 mg/dL (1.5-2.4); Potassium 4.2 mmol/L (3.5-5.5); Sodium 143 mmol/L (135-145); Total Bilirubin 0.6 mg/dL (0.3-1.2); Total Protein 6.4 d/dL (6.2-8.2)
== END | disposition home or self-care (01) ==
LOC: LABWHC1 08:17
PROVIDERS: ATTEND Internal Medicine
DX: I10 Essential (primary) hypertension (principal); E78.2 Mixed hyperlipidemia; N40.0 Benign prostatic hyperplasia without lower urinary tract symptoms; R31.29 Other microscopic hematuria
CPT/HCPCS: 36415; 80053; 80061; 81001; 83036; 83735; 84443; 85025

== ENCOUNTER → 2023-03-23 | Outpatient (CLI) | payer MEDICARE ==
[2023-03-23 10:36] LABS: African American GFR (CKD) 72 (>60 ml/min/1.73 sqM); Blood Urea Nitrogen 27 mg/dL (9-20); Non-African American GFR(CKD) 62 (>60 ml/min/1.73 sqM)
--- NOTE | 2023-03-23 11:28 | CT ---
EXAMINATION TYPE: CT abdomen wo/w con CT DLP: 1576 mGycm, Automated exposure control for dose reduction was used. 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 Coronal and sagittal reformats were performed. FINDINGS: LOWER CHEST: Visualized lung bases are clear. Coronary arterial calcifications. ABDOMEN LIVER: Unremarkable GALLBLADDER AND BILE DUCTS: Unremarkable. PANCREAS: Unremarkable. SPLEEN: Calcified granuloma identified. ADRENAL GLANDS: Unremarkable. KIDNEYS AND URETERS: No evidence of hydronephrosis or renal calculus. Marginal increase in size of co rtical mass in the medial upper to mid right kidney measuring up to 2.6 cm. (Series 8, image 68. Prev iously measured 2.5 cm when measured with similar technique. Retroaortic left renal vein. STOMACH AND BOWEL: No evidence of bowel obstruction. PERITONEUM: No evidence of pneumoperitoneum or free fluid. VASCULATURE: Moderate atherosclerotic calcifications are present throughout the abdominal aorta and i ts branches. No evidence of aortic aneurysm. MUSCULOSKELETAL: No acute osseous abnormalities. Mild disc degeneration changes are present throughou t the thoracolumbar spine. LYMPH NODES: No gross evidence for lymphadenopathy. SOFT TISSUE/ABDOMINAL WALL: Unremarkable IMPRESSION: Marginal increase in size of cortical mass within the right kidney measuring up to 2.6 cm, previously measured up to 2.5 cm. Etiologies include RCC, oncocytoma, and lipid poor AML. Continued follow-up i s recommended. No visualized adenopathy within the abdomen.
== END | disposition home or self-care (01) ==
LOC: RADCTMAIN 09:51
PROVIDERS: ATTEND Urology
DX: D41.01 Neoplasm of uncertain behavior of right kidney (principal); Z85.038 Personal history of other malignant neoplasm of large intestine
CPT/HCPCS: 82565; 84520; 74170; 36415; Q9967

== ENCOUNTER → 2023-09-28 | Outpatient (CLI) | payer MEDICARE ==
[2023-10-21 14:11] LABS: African American GFR (CKD) 76 (>60 ml/min/1.73 sqM); Blood Urea Nitrogen 28 mg/dL (9-20); Non-African American GFR(CKD) 65 (>60 ml/min/1.73 sqM)
--- NOTE | 2023-10-24 07:53 | CT ---
EXAMINATION TYPE: CT abdomen pelvis w con DATE OF EXAM: 09/28/2023 COMPARISON: No comparison available on downtime PACS. INDICATION: Renal mass DLP: 1664 mGycm, Automated exposure control for dose reduction was used. CONTRAST: 100 mL of Isovue 300. Study performed with Oral Contrast TECHNIQUE: Axial images were obtained from above the diaphragm to the iliac crests in the axial plane at 5 mm thick sections. Reconstructed images are reviewed on the computer in the coronal plane. FINDINGS: Limited CT sections are obtained the lung bases. The lung bases are clear. Coronary artery calcificat ion is present. CT ABDOMEN: Liver: Normal Spleen: A calcified granuloma is in the spleen Pancreas: Normal Adrenal glands: The adrenal glands are normal. Gallbladder: Normal Kidneys: There is a 2.6 cm rounded cortical enhancing lesion on the right kidney. Example image serie s 5 image 35. Neoplasm needs to be excluded. No masses on the left kidney. No hydronephrosis is present. No cysts are present. Delayed images were obtained through the kidneys. The lesion on the right is hypodense in relation of the renal cortex. Aorta: Vascular calcification is within the aorta. Inferior vena cava: Normal. IMPRESSION: 1. 2.6 cm enhancing mass. Workup for neoplasm is recommended.
== END | disposition home or self-care (01) ==
LOC: RADCTMAIN 10:04
PROVIDERS: ATTEND Urology
DX: D41.01 Neoplasm of uncertain behavior of right kidney (principal); N28.89 Other specified disorders of kidney and ureter
CPT/HCPCS: 82565; 84520; 74170; 36415; Q9967

== ENCOUNTER 2023-11-10 08:31 | Day surgery (SDC) | payer MEDICARE ==
[2023-11-10 09:07] VITALS: TEMP 97.8
[2023-11-10] MEDS: IV FLUID CONTINUATION 1,000 ML IV ONE (09:13)
[2023-11-10] MEDS: LACTATED RINGERS 1,000 ML IV SCH (09:13)
[2023-11-10] MEDS ORDERED: PROPOFOL 10 MG/ML 20 ML VIAL IV ONE (09:48)
--- NOTE | 2023-11-10 09:51 | P.GSHP ---
History of Present Illness H&P Date: 11/10/23 Chief Complaint: Screening with personal history of colon cancer 73-year-old male here for colonoscopy. Last colonoscopy 5 years ago. Patient with personal history of right-sided colon cancer. No bowel complaints. Last colonoscopy normal. Past Medical History Past Medical History: Coronary Artery Disease (CAD), Cancer, Eye Disorder, Hypertension, Prostate Disorder Additional Past Medical History / Comment(s): colon cancer 2003-no radiation or chemo,enlarged prostate, cataracts History of Any Multi-Drug Resistant Organisms: None Reported Past Surgical History: Bowel Resection, Heart Catheterization With Stent, Hernia Repair Additional Past Surgical History / Comment(s): R hemicolectomy, 2 stents in July and August 2022, Cataract surgery 2021 Past Anesthesia/Blood Transfusion Reactions: No Reported Reaction Date of Last Stent Placement:: 08-11-22, Smoking Status: Former smoker - Past Family History Father Family Medical History: Congestive Heart Failure (CHF), Hypertension Brother(s) Family Medical History: Cancer, Renal Disease Sister(s) Family Medical History: Cancer Daughter(s) Family Medical History: Unable to Obtain Son(s) Family Medical History: No Reported History Medications and Allergies Home Medications Medication Instructions Recorded Confirmed Type Bisoprolol [Zebeta] 5 mg PO HS 12/15/17 11/03/23 History Aspirin EC [Ecotrin Low Dose] 81 mg PO DAILY 08/07/22 11/03/23 History Beta-Carotene [Beta Carotene] 25,000 unit PO DAILY 08/07/22 11/03/23 History Cholecalciferol [Vitamin D3 (25 50 mcg PO DAILY 08/07/22 11/03/23 History Mcg = 1000 Iu)] Cyanocobalamin (Vitamin B-12) 2,500 mcg PO DAILY 08/07/22 11/03/23 History [Vitamin B-12] Krill/Om-3/Dha/Epa/Phospho/Ast 1 cap PO DAILY 08/07/22 11/03/23 History [Krill Oil 500 mg Softgel] Loratadine 10 mg PO DAILY 08/07/22 11/03/23 History Multivit,Calc,Min/FA/K1/Lycop 1 tab PO DAILY 08/07/22 11/03/23 History [One-A-Day Men's Complete Tab] Mv-Mn/Om3/Dha/Epa/Fish/Lut/Elsy 1 cap PO DAILY 08/07/22 11/03/23 History [Ocuvite Adult 50 Plus Softgel] Selenium 200 mcg PO DAILY 08/07/22 11/03/23 History Ubidecarenone [Co Q-10] 30 mg PO DAILY 08/07/22 11/03/23 History Zinc Gluconate [Zinc] 50 mg PO DAILY 08/07/22 11/03/23 History Losartan Potassium [Cozaar] 100 mg PO DAILY 09/13/22 11/03/23 History Nitroglycerin Sl Tabs [Nitrostat] 0.4 mg SL Q5M PRN 09/18/22 11/03/23 History Atorvastatin [Lipitor] 40 mg PO DAILY 11/03/23 11/03/23 History Allergies Allergy/AdvReac Type Severity Reaction Status Date / Time No Known Allergies Allergy Verified 11/10/23 08:57 Surgical - Exam Vital Signs Temp Pulse Resp BP Pulse Ox 97.8 F 59 L 16 156/73 97 11/10/23 09:06 11/10/23 09:06 11/10/23 09:06 11/10/23 09:06 11/10/23 09:06 Physical exam: General: Well-developed, well-nourished HEENT: Normocephalic, sclerae nonicteric Abdomen: Nontender, nondistended Extremities: No edema Neuro: Alert and oriented Assessment and Plan (1) History of colon cancer Narrative/Plan: 73-year-old male with history of colon cancer. Will proceed with screening colo noscopy at this time. Current Visit: Yes Status: Acute Code(s): Z85.038 - PERSONAL HISTORY OF MALIGNANT NEOPLASM OF LARGE INTESTINE SNOMED Code(s): 499382600 (2) Colon cancer screening Current Visit: No Status: Acute Code(s): Z12.11 - ENCOUNTER FOR SCREENING FOR MALIGNANT NEOPLASM OF COLON SNOMED Code(s): 619145734
[2023-11-10 10:27] VITALS: BP 152/79; PULSE 58; RESP 18
--- NOTE | 2023-11-10 13:20 | P.PCN ---
Date of Procedure: 11/10/23 Procedure(s) Performed: PREOPERATIVE DIAGNOSIS: History of colon cancer POSTOPERATIVE DIAGNOSIS: Diverticulosis PROCEDURE: Colonoscopy ANESTHESIA: MAC SURGEON: Braulio Coelho M.D. SPECIMENS: None ENDOSCOPIC PROCEDURE: The patient was placed on the endoscopy table in the left decubitus position. The Olympus colonoscope was inserted into the anus and passed under direct visualization to the ileocolonic anastomosis. From that point the scope was slowly withdrawn inspecting all surfaces carefully. There were no neoplastic inflammatory or polypoid lesions throughout the transverse, descending, sigmoid and rectum. There was mild left-sided diverticulosis noted. Digital rectal examination was normal. The patient was taken to the recovery room in stable condition per anesthesia guidelines. RECOMMENDATIONS: Resume diet. Repeat colonoscopy 3 to 5 years.
== END 2023-11-10 10:40 | disposition home or self-care (01) ==
LOC: ORWHC2ENDO 08:31
PROVIDERS: ATTEND Surgery
DX: Z12.11 Encounter for screening for malignant neoplasm of colon (principal); K57.30 Diverticulosis of large intestine without perforation or abscess without bleeding; I25.10 Atherosclerotic heart disease of native coronary artery without angina pectoris; I10 Essential (primary) hypertension; Z85.038 Personal history of other malignant neoplasm of large intestine; Z87.891 Personal history of nicotine dependence; Z90.49 Acquired absence of other specified parts of digestive tract; Z98.890 Other specified postprocedural states
CPT/HCPCS: J2704; G0105

== ENCOUNTER → 2024-01-20 | Outpatient (CLI) | payer MEDICARE ==
--- NOTE | 2024-01-21 08:17 | US ---
EXAMINATION TYPE: US carotid duplex BILAT DATE OF EXAM: 01/20/2024 COMPARISON: NONE CLINICAL INDICATION: Male, 73 years old with history of I65.23 CAROTID STENOSIS; stenosis Additional History: I65.- Occlusion/stenosis of specified precerebral artery, specified laterality TECHNIQUE: Grayscale, color Doppler and spectral Doppler evaluation of the bilateral carotid systems and vertebral arteries. Indirect Doppler criteria was utilized. FINDINGS: EXAM MEASUREMENTS: RIGHT: Peak Systolic Velocity (PSV) cm/sec ----- Right CCA: 105 ----- Right ICA: 114 ----- Right ECA: 173 ICA/CCA ratio: 1.1 RIGHT: End Diastole cm/sec ----- Right CCA: 18.0 ----- Right ICA: 30.5 ----- Right ECA: 6.9 LEFT: Peak Systolic Velocity (PSV) cm/sec ----- Left CCA: 112 ----- Left ICA: 133 ----- Left ECA: 166 ICA/CCA ratio: 1.2 LEFT: End Diastole cm/sec ----- Left CCA: 21.7 ----- Left ICA: 24.0 ----- Left ECA: 16.7 VERTEBRALS (direction of flow): Right Vertebral: Antegrade Left Vertebral: Antegrade Rhythm: Normal LOAD MIXER NOTES: Plaque seen in left bulb. No significantly elevated velocities seen Color Doppler imaging shows patency with blood flow throughout the carotid artery. Spectral waveforms are within normal limits. IMPRESSION: No evidence for hemodynamically significant stenosis. Criteria for Assigning % of Stenosis / Diameter reduction (Estimation based on the indirect measurements of the internal carotid artery velocities (ICA PSV). 1. Normal (no stenosis)=ICA PSV < 125 cm/s: ratio < 2.0: ICA EDV<40 cm/s. 2. Less than 50% stenosis=ICA PSV < 125 cm/s: ratio < 2.0: ICA EDV<40 cm/s. 3. 50 to 69% stenosis=ICA PSV of 125 to 230 cm/s: ration 2.0 ? 4.0: ICA EDV 40-100 cm/s. 4. Greater than 70% stenosis to near occlusion= ICA PSV > 230 cm/s: ratio > 4.0: ICA EDV > 100 cm/s. 5. Near occlusion= ICA PSV velocities may be low or undetectable: variable ratio and ICA EDV. 6. Total occlusion=unable to detect flow. [facility], , 01/21/2024 8:15 AM
--- NOTE | 2024-01-21 08:18 | US ---
EXAMINATION TYPE: US arterial LE single level DATE OF EXAM: 01/20/2024 8:11 AM COMPARISONS: None. CLINICAL INDICATION: Male, 73 years old with history of I73.9 PAD; PAD TECHNIQUE: Systolic pressures were taken of the upper and lower extremity arteries with ankle-brachia l indices and toe brachial indices calculated bilaterally. History of: Smoker: 35+ yrs ago Hypertension: Yes Diabetic: No Hyperlipidemia: No TIA/CVA: No Previous Vascular Surgery: No CAD: No IL: No Vascular Ulcers: No Claudication: No Gangrene: No FINDINGS: Brachial Artery systolic pressure: Right: 127 Left: 123 Posterior Tibial artery systolic pressure: Right: 151 Left: 146 Dorsalis Pedis artery systolic pressure: Right: 135 Left: 131 Ankle-Brachial Indices: Right: 1.19 Left: 1.15 (Vessel hardening > 1.4; Normal 0.9 - 1.4, Moderate 0.7 - 0.9, Severe 0.5-0.7) IMPRESSION: Normal ankle-brachial brachial indices bilaterally. [facility], , 01/21/2024 8:16 AM
== END | disposition home or self-care (01) ==
LOC: RADUSWWP 07:24
PROVIDERS: ATTEND Internal Medicine
DX: I65.23 Occlusion and stenosis of bilateral carotid arteries (principal); I73.9 Peripheral vascular disease, unspecified
CPT/HCPCS: 93880; 93922

== ENCOUNTER → 2024-03-24 | Outpatient (CLI) | payer MEDICARE ==
[2024-03-24 10:59] LABS: ALT 26 U/L (10-49); AST 21 U/L (14-35); Albumin 4.4 g/dL (3.8-4.9); Albumin/Globulin Ratio 1.76 Ratio (1.60-3.17); Alkaline Phosphatase 93 U/L (41-126); BUN/Creat Ratio 19.92 Ratio (12.00-20.00); Blood Urea Nitrogen 25.9 mg/dL (9.0-27.0); Calcium 9.5 mg/dL (8.7-10.3); Carbon Dioxide 27.9 mmol/L (21.6-31.8); Chloride 106 mmol/L (96-109); Chol/HDL Ratio 2.04 Ratio; Globulin 2.5 g/dL (1.6-3.3); Glucose 108 mg/dL (70-110); LDL Cholesterol,Calculated 50.5 mg/dL (0.0-131.0); Potassium 4.7 mmol/L (3.5-5.5); Sodium 143 mmol/L (135-145); Total Bilirubin 0.4 mg/dL (0.3-1.2); Total Protein 6.9 g/dL (6.2-8.2)
== END | disposition home or self-care (01) ==
LOC: LABWHC1 07:47
PROVIDERS: ATTEND Internal Medicine Interventional Cardiology
DX: E78.2 Mixed hyperlipidemia (principal)
CPT/HCPCS: 36415; 80053; 80061

== ENCOUNTER 2024-05-17 05:41 | Day surgery (SDC) | payer MEDICARE ==
[2024-05-17] MEDS ORDERED: HEPARIN SODIUM,PORCINE 10,000 UNIT in SODIUM CHLORIDE 0.9% 1,000 ML IRRIGATION PRN (05:50)
[2024-05-17] MEDS ORDERED: ALPRAZolam 0.25 MG TAB PO PRN (05:50)
[2024-05-17] MEDS ORDERED: NITROGLYCERIN SL TABS 0.4 MG TAB SUBLINGUAL PRN (05:50)
[2024-05-17] MEDS ORDERED: ALPRAZolam 0.5 MG TAB PO PRN (05:50)
[2024-05-17] MEDS ORDERED: HEPARIN SODIUM,PORCINE (1 ML) 2,500 UNIT in SODIUM CHLORIDE 0.9% 250 ML IRRIGATION PRN (05:50)
[2024-05-17] MEDS: SODIUM CHLORIDE 0.9% 1,000 ML in EMPTY BAG 1 BAG IV SCH (06:10)
[2024-05-17] MEDS: IV FLUID CONTINUATION 1,000 ML IV ONE (06:11)
[2024-05-17 06:29] VITALS: RESP 16; TEMP 98.6
[2024-05-17 06:34] LABS: Basophils % (A) 0 %; Eosinophils # (A) 0.3 k/uL (0-0.7); Eosinophils % (A) 4 %; HCT 46.8 % (39.0-53.0); HGB 15.2 gm/dL (13.0-17.5); Lymphocytes # (A) 1.1 k/uL (1.0-4.8); Lymphocytes % (A) 15 %; MCH 30.1 pg (25.0-35.0); MCHC 32.5 g/dL (31.0-37.0); MCV 92.6 fL (80.0-100.0); Mean Platelet Volume 7.7; Monocytes # (A) 0.5 k/uL (0-1.0); Monocytes % (A) 6 %; Neutrophils # (A) 5.4 k/uL (1.3-7.7); Neutrophils % (A) 73 %; Platelet Count 164 k/uL (150-450); RBC 5.06 m/uL (4.30-5.90); RDW 12.8 % (11.5-15.5); WBC 7.4 k/uL (3.8-10.6)
[2024-05-17 06:45] LABS: African American GFR (CKD) 80 (>60 ml/min/1.73 sqM); Anion Gap 8 mmol/L; Blood Urea Nitrogen 20 mg/dL (9-20); Calcium 9.1 mg/dL (8.4-10.2); Carbon Dioxide 25 mmol/L (22-30); Chloride 105 mmol/L (98-107); Glucose 106 mg/dL (74-99); Non-African American GFR(CKD) 69 (>60 ml/min/1.73 sqM); Sodium 138 mmol/L (137-145)
[2024-05-17] MEDS ORDERED: ASPIRIN 325 MG TAB PO ONE (07:00)
[2024-05-17] MEDS: HEPARIN SODIUM,PORCINE (1 ML) 2,500 UNIT in SODIUM CHLORIDE 0.9% 250 ML IRRIGATION ONE (07:29)
[2024-05-17] MEDS: HEPARIN SODIUM,PORCINE 10,000 UNIT in SODIUM CHLORIDE 0.9% 1,000 ML IRRIGATION ONE (07:29)
[2024-05-17] MEDS: fentaNYL (PF) 50 MCG/ML 2 ML AMP IVP ONE (07:29)
[2024-05-17] MEDS: VERAPAMIL SYRINGE (5 MG/10 ML) INTRAARTER ONE ×2 (07:34→07:35)
[2024-05-17] MEDS: LIDOCAINE 1% INJ 10MG/ML (20 ML MDV) SQ ONE ×2 (07:34→07:35)
[2024-05-17] MEDS: HEPARIN SODIUM 1,000 UN/ML (10ML VL) IVP ONE (07:39)
[2024-05-17] MEDS: IOPAMIDOL-370 100ML BTL INJ ONE (07:44)
[2024-05-17] MEDS ORDERED: RX INFO: IV CONTRAST WAS GIVEN 1 EACH MISC MISCELLANE PRN (08:09)
[2024-05-17] MEDS ORDERED: SODIUM CHLORIDE 0.9% 1,000 ML IV SCH (08:15)
--- NOTE | 2024-05-17 08:15 | P.CARDCATH ---
Date of Procedure: 05/17/24 Description of Procedure: Cardiac Catheterization: The patient is a 74-year-old male with known history of hypertension, hyperlipidemia, history of CAD status post stenting of the RCA and the LAD in 2022 who presented with symptoms of dyspnea on exertion and had an abnormal MPI. Recommendations were made regarding cardiac catheterization, the risks and the complications were discussed with the patient who is in full understanding and agreement. Procedure Description: Patient was brought to research laboratory manager in fasting semi-sedated state after receiving Fentanyl and Benadryl achieiving moderate conscious sedated state. Using Xylocaine Anesthesia and modified Seldinger technique, a 6-Bhutanese sheath was introduced in the right radial artery . Subsequently, selective coronary angiography was performed using a 5-Bhutanese 3.5 bend Junaid catheter. Multiple views of the coronary artery including hemiaxial views were obtained. The 5 Bhutanese pigtail catheter was used to cross the aortic valve and LVEDP was calculated. Following that, catheter and sheath were removed. Hemostasis was obtained with deployment of vascular band . There was no immediate complication. Patient was returned to room in stable condition. Of note, the patient received a total of 4500 units of intravenous heparin as well as intra-arterial verapamil. Findings: Fluoroscopy: Calcification of the LAD was noted Left main: This is a short size vessel, bifurcating into LAD and left circumflex, left main has no high-grade stenosis. LAD: This is a large size vessel, reaching to the apex with a wraparound apex segment, giving rise to a small to moderate proximal diagonal branch. The stented segment in the proximal LAD is patent with mild intimal restenosis of 20%. The ostium of the diagonal branch has 70% stenosis with SALVATORE-3 flow. Left circumflex: This is a large nondominant vessel, giving rise to a large obtuse marginal branch. After the takeoff of the obtuse marginal branch the AV groove left circumflex has a 50% plaque, the distal vessel is small in caliber. RCA: This is a dominant vessel moderate in caliber. The stented segment in the mid RCA is patent with no in-stent restenosis. Prior to the stent there is a 30 to 40% plaque with no progression. Left Ventriculogram: Not performed Hemodynamics: There was no gradient across aortic valve, LVEDP was 16-18 mmHg Conclusion: 1. Patent stent in the LAD and the RCA 2. Moderate significant disease at the ostium of the first jailed diagonal branch 3. Mild disease in the proximal RCA and distal left circumflex 4. Right dominance Recommendations: In view of the anatomy I have recommended to continue medical therapy. The results of his stress test could represent the diagonal branch territory but I would recommend to continue medical therapy at this time. The findings and the recommendations were discussed with the patient and the family and they were in full understanding and agreement. Duration of sedation is 14 minutes.
[2024-05-17] MEDS ORDERED: NON FORMULARY DRUG (Losartan Potassium [Cozaar] 100 MG Tablet) PO SCH (09:00)
[2024-05-17] MEDS ORDERED: ASPIRIN 81 MG PO SCH (09:00)
[2024-05-17 09:14] VITALS: PULSE 56
[2024-05-17 11:19] VITALS: BP 122/59
[2024-05-17] MEDS ORDERED: BISOPROLOL 5 MG TAB PO SCH (21:00)
== END 2024-05-17 11:11 | disposition home or self-care (01) ==
LOC: CATHCVL 05:41
PROVIDERS: ATTEND Internal Medicine Interventional Cardiology
DX: R94.39 Abnormal result of other cardiovascular function study (principal); I25.10 Atherosclerotic heart disease of native coronary artery without angina pectoris; I10 Essential (primary) hypertension; E78.2 Mixed hyperlipidemia; Z95.5 Presence of coronary angioplasty implant and graft; Z87.891 Personal history of nicotine dependence; I34.0 Nonrheumatic mitral (valve) insufficiency; Z79.82 Long term (current) use of aspirin
CPT/HCPCS: 80048; 85025; 93458; C1894; C1769; J1644 ×3; J2003; J3010; Q9967